=== PATIENT | female | born 2000 | race Caucasian/White ===

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

== ENCOUNTER 2019-04-25 12:19 | Outpatient (CLI) | payer BC, MEDICAID, SELFPAY ==
[2019-04-25 12:41] VITALS: BP 115/54; PULSE 75; RESP 20; TEMP 36.7; O2SAT 100; BMI 35.4
[2019-04-25 12:45] LABS: Microscopic, Urine URINE MICROSCOPIC (MICROSCOPIC)
[2019-04-25 12:51] LABS: Appearance,Urine CLEAR (Clear); Bilirubin,Urine Negative (Negative); Blood, Urine Negative (Negative); Color,Urine YELLOW (Yellow); Glucose,Urine (UA) Negative (Negative); Ketones,Urine Negative (Negative); Leukocyte Esterase,Urine Negative (Negative); Nitrate,Urine Negative (Negative); PH,Urine 7.5 (5.0-8.5); Protein,Urine Negative (Negative); Specific Gravity, Urine <= 1.005 (1.005-1.030); Urobilinogen,Urine 0.2 EU/dl (0.2)
[2019-04-25 13:01] LABS: Amphetamine/Metha Screen,Urine Negative ng/mL (<1000); Barbiturates Screen,Urine Negative ng/mL (<200); Benzodiazepines Screen,Urine Negative ng/mL (<200); Cannabinoid Screen,Urine Negative ng/mL (<50); Cocaine Screen,Urine Negative ng/mL (<300); Methadone Screen,Urine Negative ng/mL (<300); Opiate Screen,Urine Negative ng/mL (<300); Phencyclidine Screen,Urine Negative ng/mL (<25)
[2019-04-25 13:03] LABS: Fetal Membrane Rupture (Rapid) Negative (Negative)
[2019-04-25 13:07] LABS: Bacteria,Urine 2+ /lpf
== END 2019-04-25 13:40 | disposition home or self-care (01) ==
LOC: OBOUT 12:22 → OB 12:24
PROVIDERS: PCP Nurse Practitioner Family; Visit Provider Obstetrics & Gynecology
DX: O26.893 Other specified pregnancy related conditions, third trimester (principal); Z3A.34 34 weeks gestation of pregnancy
CPT/HCPCS: 59025; 80305; 81001; 84112; 87086

== ENCOUNTER → 2019-06-08 10:40 | Outpatient (CLI) | payer BC, MEDICAID, SELFPAY ==
--- NOTE | 2019-06-08 10:47 | US_ITS ---
US breast LT complete INDICATION: Left breast mass. Recent childbirth with attempted breast-feeding with nodule appearing 1 week after cessation of breast-feeding. ORDERING PHYSICIAN: Leonora Wade APRN PATIENT AGE: 19 years COMPARISON: None TECHNIQUE: Ultrasound left breast performed along with axilla FINDINGS: There is a 5 x 2 cm area of heterogeneous echogenicity at the 3 and 4:00 region of the left breast have a somewhat bilobular appearance with both cystic and solid appearing components. No internal blood flow apparent In all likelihood with this clinical presentation, this likely represents a galactocele.. The remaining breast is an unremarkable appearance. There is a mildly prominent node in the left axilla at 2 x 1.5 cm. IMPRESSION: 5 x 2 cm complex mass at the 3 and 4:00 position of the left breast near the nipple which may represent a coaxial. One cannot exclude the possibility of superimposed infection. The differential diagnosis would include lactating adenoma, breast abscess, fibroadenoma or even carcinoma. Fine-needle aspiration could be performed under sonographic guidance for definitive diagnosis if clinically desired.
== END ==
PROVIDERS: PCP Nurse Practitioner Family; Visit Provider Nurse Practitioner Family
DX: N63.20 Unspecified lump in the left breast, unspecified quadrant (principal)
CPT/HCPCS: 76641

== ENCOUNTER → 2019-07-06 09:23 | Outpatient (CLI) | payer BC, MEDICAID, SELFPAY ==
--- NOTE | 2019-07-06 09:28 | US_ITS ---
PROCEDURE: US FNA BREAST CLINICAL INDICATION: LT BREAST MASS COMPARISON: BREASTLT US breast LT complete from 06/08/2019 FINDINGS: Technique: Following obtaining informed consent under aseptic conditions and local anesthesia with 1 percent buffered lidocaine, 2 passes were made into the area of heterogeneous echogenicity within the 2 o'clock region of the left breast and fine-needle aspiration obtained. The patient tolerated the procedure well without evidence of immediate complication. Cytology: Negative for malignant cells. Scant ductal groups with marked acute inflammation and mini histiocytes, favor inflammatory process suspicious for mastitis which correlates with the sonographic and clinical findings. IMPRESSION: Ultrasound-guided fine needle aspiration of left breast negative for malignancy suspicious for mastitis. Recommend 6-8 week sonographic follow-up to confirm resolution of the sonographic abnormality Dictated by: Eduin Austin MD 07/16/2019 15:03 Electronically signed by Eduin Austin MD in [place] 07/16/2019 15:03
== END ==
PROVIDERS: PCP Nurse Practitioner Family; Visit Provider Nurse Practitioner Family
DX: N63.22 Unspecified lump in the left breast, upper inner quadrant
CPT/HCPCS: 10005; 76942; 87070; 87205

== ENCOUNTER 2020-04-03 13:43 | Emergency (ER) | payer BC, SELFPAY ==
[2020-04-03 13:44] VITALS: PULSE 100; RESP 18; O2SAT 100; BMI 30.5
[2020-04-03 13:51] VITALS: BP 124/70; PULSE 103; RESP 18; TEMP 36.6; O2SAT 95; BMI 30.5
--- NOTE | 2020-04-03 14:32 | HMH.EDUTC ---
[facility] [place] Impression: Nausea Diarrhea Qualifiers: Diarrhea type: unspecified type Qualified Code(s): R19.7 - Diarrhea, unspecified Disposition: Home, Self-Care Condition on Discharge: Good Instructions: Diarrhea, DI for Nausea -- Adult Additional Instructions: ? Drink extra fluids with and between meals. If you have difficulty drinking, try very small amounts of water or suck on ice chips. ? Avoid fruit juices, as these do not replace minerals and can actually increase diarrhea. ? Children and adults can use sports drinks to replenish electrolytes. Younger children and infants should use products formulated for children, like oral rehydration solutions. ? Eat food in small amounts and let your stomach recover. ? Get lots of rest. You may feel tired or weak. ? No greasy or fried foods for the next 24-48 hours BRAT diet Bananas Rice Apples and [place] ? Make sure to drink plenty of liquids ? Return if needed ? Straight to ER if any life threatening symptoms ? Zofran as prescribed ? You was given an outpatient order for diarrhea panel, please collect specimen and bring back to outpatient lab then call back to the [facility] or follow up with family doctor for results ? Follow up with family doctor in the next 48-72 hours if no improvement or any worsening of symptoms Prescriptions: Ondansetron [Zofran 4mg ODT] 4 mg PO Q8HP PRN #9 tab.rapdis PRN Reason: Nausea Transmission Status: Pending to [facility] Referrals: Leonora Wade APRN [Primary Care Provider] - As needed Forms: Work/School Release Time of Disposition: 14:37 Medical Decision Making - Delmer Inquiry Pt receiving controlled substance: No Delmer was queried for this patient: No Vital Signs: 04/03/20 13:44 04/03/20 13:51 Temperature 97.8 F Temperature Source Oral Pulse Rate [Radial] 100 H 103 H Respiratory Rate 18 18 Blood Pressure [Right Arm] 124/70 Blood Pressure Mean [Right Arm] 88 Blood Pressure Source [Right Arm] Automatic Cuff Blood Pressure Position [Right Arm] Sitting 02 Sat by Pulse Oximetry 100 95 Oxygen Delivery Method Room Air - Reevaluation(s) Time: 14:34 Reevaluation #1: Patient states last day of menstruation was yesterday denies , no vomiting or diarrhea since arrival at [facility] HPI - General Stated complaint: diarrhea, cramping Time Seen by Provider: 04/03/20 14:32 Mode of Arrival: Ambulatory Source of Information: Patient Limitations: No Limitations Description of Symptoms (Recalled from Triage Doc. by RN): States she feels hot, not eating very much x 2 days - History of Present Illness Provider Complaint: Patient states that she has been having nausea on and off and diarrhea for the last couple of days States that she just got off her period and denies States that when she got up this morning she was still having some nausea and diarrhea and could not go to work so she came in to get checked and get a note for work - Related Data Previous Rx's Medication Instructions Recorded Albuterol Sulfate [Albuterol HFA 1 - 2 puffs IH Q4-6H PRN #1 inh 01/15/20 Inhaler] Azithromycin [Z-Mario 250mg Tab*] 250 mg PO UD DOSE PK #6 tab 01/15/20 Brompheniramine/Pseudoephed/Dm 5 ml PO Q6HP PRN #240 syrup 01/15/20 [Bromfed Dm Cough Syrup] guaiFENesin [Mucinex 600mg tablet] 1 - 2 tab PO BIDP PRN #30 01/15/20 tab.er.12h methylPREDNISolone [Medrol] 4 mg PO DIRECTED 6 Days #21 01/15/20 tab.ds.pk Ondansetron [Zofran 4mg ODT] 4 mg PO Q8HP PRN #9 tab.rapdis 04/03/20 Allergies Allergy/AdvReac Type Severity Reaction Status Date / Time BLUEBERRY (DRUG) Allergy Unknown Uncoded 07/22/19 10:59 CAT DANDER Allergy Unknown Uncoded 07/22/19 10:59 DOG DANDER Allergy Unknown Uncoded 07/22/19 10:59 DUST Allergy Unknown Uncoded 07/22/19 10:59 CODFISH AdvReac Unknown FACE RED, Uncoded 07/22/19 10:59 PUFFY, RASH - Worker's Comp Is this a Worker's Comp case?:
[2020-04-03 14:41] VITALS: BP 120/87; PULSE 104; RESP 20; TEMP 36.8; O2SAT 98
== END 2020-04-03 14:42 | disposition home or self-care (01) ==
LOC: ER 13:51 → UTC 13:52
PROVIDERS: Emergency Provider Nurse Practitioner; PCP Nurse Practitioner Family
DX: R19.7 Diarrhea, unspecified (principal); J45.909 Unspecified asthma, uncomplicated; F17.210 Nicotine dependence, cigarettes, uncomplicated
CPT/HCPCS: 99201

== ENCOUNTER 2020-07-10 17:12 | Emergency (ER) | payer BC, SELFPAY ==
[2020-07-10 17:36] VITALS: BP 144/92; PULSE 70; RESP 19; TEMP 36.6; O2SAT 98; BMI 31.0
--- NOTE | 2020-07-10 17:53 | HMH.EDUTC ---
[facility] [place] Dis[place] Clinical Impression: Nausea Diarrhea Qualifiers: Diarrhea type: unspecified type Qualified Code(s): R19.7 - Diarrhea, unspecified Disposition: Home, Self-Care Condition on Discharge: Good Instructions: DI for Vomiting -- Adult, Nausea and Vomiting-Adult, Diarrhea Additional Instructions: ? Drink extra fluids with and between meals. If you have difficulty drinking, try very small amounts of water or suck on ice chips. ? Avoid fruit juices, as these do not replace minerals and can actually increase diarrhea. ? Children and adults can use sports drinks to replenish electrolytes. Younger children and infants should use products formulated for children, like oral rehydration solutions. ? Eat food in small amounts and let your stomach recover. ? Get lots of rest. You may feel tired or weak. ? No greasy or fried foods for the next 24-48 hours BRAT diet Bananas Rice Apples and [place] ? Make sure to drink plenty of liquids ? Return if needed ? Straight to ER if any life threatening symptoms ? Zofran as prescribed ? You was given an outpatient order for diarrhea panel, please collect specimen and bring back to outpatient lab then call back to the [facility] or follow up with family doctor for results ? Follow up with family doctor in the next 48-72 hours if no improvement or any worsening of symptoms Prescriptions: Ondansetron [Zofran 4mg ODT] 4 mg PO Q8HP PRN #6 tab.rapdis PRN Reason: Nausea Transmission Status: Pending to [facility] Referrals: Leonora Wade APRN [Primary Care Provider] - As needed Forms: Work/School Release Medical Decision Making - Delmer Inquiry Pt receiving controlled substance: No Delmer was queried for this patient: No Vital Signs: 07/10/20 17:36 Temperature 97.9 F Temperature Source Oral Pulse Rate [Right Brachial] 70 Respiratory Rate 19 Blood Pressure [Right Arm] 144/92 H Blood Pressure Mean [Right Arm] 109 Blood Pressure Source [Right Arm] Automatic Cuff Blood Pressure Position [Right Arm] Sitting 02 Sat by Pulse Oximetry 98 Oxygen Delivery Method Room Air Medical Decision Narrative: Patient denies and exposure to COVID [facility] [place] HPI - General Stated complaint: stomach,nausa,diarrhea Time Seen by Provider: 07/10/20 17:53 Mode of Arrival: Ambulatory Source of Information: Patient Limitations: No Limitations Description of Symptoms (Recalled from Triage Doc. by RN): PATIENT C/O NAUSEA AND DIARRHEA SINCE THIS MORNING HEENT Symptoms (Recalled from RN notes): No Resp Symptoms (Recalled from RN notes): No Skin Symptoms (Recalled from RN notes): No MS Symptoms (Recalled from RN notes): No Functional Status (Recalled from RN notes): WNL - History of Present Illness Provider Complaint: Patient states that she woke up this morning sick at her stomach States that she laid back down and slept some more then she started having diarrhea States that she has had a couple eppisodes of diarrhea today and nausea but no vomiting States that she wasnt able to go to work and came in to get checked - Related Data Previous Rx's Medication Instructions Recorded Ondansetron [Zofran 4mg ODT] 4 mg PO Q8HP PRN #6 tab.rapdis 07/10/20 Allergies Allergy/AdvReac Type Severity Reaction Status Date / Time BLUEBERRY (DRUG) Allergy Unknown Uncoded 07/22/19 10:59 CAT DANDER Allergy Unknown Uncoded 07/22/19 10:59 DOG DANDER Allergy Unknown Uncoded 07/22/19 10:59 DUST Allergy Unknown Uncoded 07/22/19 10:59 CODFISH AdvReac Unknown FACE RED, Uncoded 07/22/19 10:59 PUFFY, RASH - Worker's Comp Is this a Worker's Comp case?: No [facility] History - Hepatitis A Screen Drug use history?: No High risk sexual behaviors?: No History of sexually transmitted infection?: No Currently employed?: No Childcare worker?: No Do you have indoor plumbing?: Yes Do you have electricity?: Yes Attestation statement:: This patient has been screened for Hepatitis A risk
[2020-07-10 18:05] VITALS: BP 144/92; PULSE 70; RESP 19; TEMP 36.6; O2SAT 98
== END 2020-07-10 18:07 | disposition home or self-care (01) ==
PROVIDERS: Emergency Provider Nurse Practitioner; PCP Nurse Practitioner Family
DX: R11.0 Nausea (principal); R19.7 Diarrhea, unspecified; J45.909 Unspecified asthma, uncomplicated; F17.210 Nicotine dependence, cigarettes, uncomplicated
CPT/HCPCS: 99201

== ENCOUNTER 2020-09-26 12:05 | Emergency (ER) | payer BC, SELFPAY ==
[2020-09-26 12:26] VITALS: BP 118/70; PULSE 117; RESP 20; TEMP 36.7; O2SAT 97; BMI 32.8
--- NOTE | 2020-09-26 12:45 | HMH.EDUTC ---
[facility] [place] Clinical Impression: Exposure to COVID-19 virus, Viral syndrome Disposition: Home, Self-Care Condition on Discharge: Good Instructions: DI for Viral Syndrome Additional Instructions: Drink plenty of fluids. Take tylenol for pain or fever. Return if you begin to have difficulty breathing. Follow up with your regular doctor. GO TO THE ER FOR ANY WORSENING SYMPTOMS Prescriptions: Azithromycin [Z-Mario 250mg Tab*] 250 mg PO UD DOSE PK #6 tab Transmission Status: Received by [facility] Referrals: Leonora Wade APRN [Primary Care Provider] - Forms: Work/School Release Time of Disposition: 12:49 Medical Decision Making - Medical Records Medical records reviewed: No: I reviewed the patient's medical records. - Delmer Inquiry Pt receiving controlled substance: No Vital Signs: 09/26/20 12:26 09/26/20 13:03 Temperature 98.1 F 98.1 F Temperature Source Oral Oral Pulse Rate 117 H Pulse Rate [Radial] 117 H Respiratory Rate 20 20 Blood Pressure 118/70 Blood Pressure [Right Arm] 118/70 Blood Pressure Mean [Right Arm] 86 Blood Pressure Source Automatic Cuff Blood Pressure Source [Right Arm] Automatic Cuff Blood Pressure Position Sitting Blood Pressure Position [Right Arm] Sitting 02 Sat by Pulse Oximetry 97 Oxygen Delivery Method Room Air Room Air Orders (Tests/Meds): ORDERS Category Date Time Status Covid-19 Nasal PCR ([facility]) Routine Lab 09/26/20 12:15 Received [facility] [place]PI - General Stated complaint: covid test Time Seen by Provider: 09/26/20 12:45 Mode of Arrival: Ambulatory Source of Information: Patient Limitations: No Limitations Description of Symptoms (Recalled from Triage Doc. by RN): sore throat, nasal congestion wants covid test. HEENT Symptoms (Recalled from RN notes): Yes Resp Symptoms (Recalled from RN notes): No Skin Symptoms (Recalled from RN notes): No MS Symptoms (Recalled from RN notes): No Functional Status (Recalled from RN notes): wnl - History of Present Illness Provider Complaint: She c/o 2 days of feeling bad, low grade fever, nasal congestion. She has been exposed to covid at her workplace. - Related Data Home Medications Medication Instructions Recorded Confirmed acyclovir 400 mg tablet 400 mg PO DAILY 08/25/20 08/25/20 Previous Rx's Medication Instructions Recorded miconazole nitrate 2 % topical 1 applic TOPICAL BID 14 Days #30 g 08/25/20 cream Azithromycin [Z-Mario 250mg Tab*] 250 mg PO UD DOSE PK #6 tab 09/26/20 Allergies Allergy/AdvReac Type Severity Reaction Status Date / Time blueberry Allergy Verified 08/25/20 13:46 cat dander Allergy Verified 08/25/20 13:46 dog dander Allergy Verified 08/25/20 13:46 house dust Allergy Verified 08/25/20 13:46 codfish Allergy Uncoded 08/25/20 13:46 - Worker's Comp Is this a Worker's Comp case?: No [facility] History - Hepatitis A Screen Drug use history?: No High risk sexual behaviors?: No History of sexually transmitted infection?: No Currently employed?: No Childcare worker?: No Do you have indoor plumbing?: Yes Do you have electricity?: Yes Attestation statement:: This patient has been screened for Hepatitis A risk factors. I have reviewed the patient's past medical history: Yes Medical History: Reports:: Asthma Denies:: Diabetes Mellitus Type 1, Diabetes Mellitus Type 2 Other Medical History: Reports: Other Other Surgeries: Yes: No Previous Surgery. No: Amputation: No Fractures: No Comment: 2018-wisdom teeth removed - Social History Smoking Status: Current every day smoker Tobacco Type: e-cigarettes # Packs/Day (cigarettes): 0 Alcohol Intake: never Alcohol Intake Frequency:: a few times a week Substance Use Type: marijuana, crack/cocaine, hallucinogens Occupational Status: other Housing: house Family Hx:: Hypertension, Asthma ROS Obtained: Yes All systems reviewed & no additional complaints - [place]
[2020-09-26 13:03] VITALS: BP 118/70; PULSE 117; RESP 20; TEMP 36.7; O2SAT 97
== END 2020-09-26 13:04 | disposition home or self-care (01) ==
PROVIDERS: Emergency Provider Nurse Practitioner Family; PCP Nurse Practitioner Family
DX: B34.9 Viral infection, unspecified (principal); Z20.828 Contact with and (suspected) exposure to other viral communicable diseases
CPT/HCPCS: 99201; U0003

== ENCOUNTER 2020-11-20 14:12 | Emergency (ER) | payer BC, SELFPAY ==
[2020-11-20 14:21] VITALS: BP 110/64; PULSE 100; RESP 18; TEMP 36.7; O2SAT 95; BMI 34.3
[2020-11-20 16:15] VITALS: BP 178/105; PULSE 129; RESP 28; TEMP 36.6; O2SAT 98; BMI 33.6
[2020-11-20 16:17] VITALS: BP 168/100; PULSE 120; RESP 22; TEMP 36.6; O2SAT 96; BMI 29.9
--- NOTE | 2020-11-20 16:17 | XR_ITS ---
PROCEDURE: XR CHEST PORTABLE CLINICAL HISTORY: wheezing, shortness of air COMPARISON: CR CXR CHEST(2 VIEWS-NOT PORTABLE) from 08/29/2009 CR CXR CHEST(2 VIEWS-NOT PORTABLE) from 11/09/2014 CR [id number] XR chest portable from 07/12/2018 FINDINGS: The cardiomediastinal silhouette and pulmonary vascularity are within normal limits. The lungs are clear without infiltrates, suspicious nodules, or pleural effusions. No acute bony abnormalities. IMPRESSION: No acute findings. Dictated by: Eduin Austin MD 11/20/2020 17:21 Eduin Austin MD in [place] 11/20/2020 17:21
--- NOTE | 2020-11-20 16:29 | HMH.EDGENADL ---
ED Disposition Clinical Impression: Asthma exacerbation Qualifiers: Asthma severity: moderate Disposition: Home, Self-Care Condition on Discharge: Good Additional Instructions: Return to the emergency department for worsening difficulty breathing, fever vomiting inability to tolerate by mouth or any other concerns within 8 hours. Otherwise follow-up with your primary care physician within the next few days Referrals: Leonora Wade APRN [Primary Care Provider] - - Critical Care Critical Care Time: No Attestation: On 11/20/20, the high probability of a clinically significant, sudden or life threatening deterioration of the following system(s) required my full and direct attention, intervention and personal management. The time I documented below is in addition to time spent performing reported procedures but includes the following listed in this critical care notation. Medical Decision Making - Medical Records Medical records reviewed: Yes: I reviewed the patient's medical records. - Delmer Inquiry Pt receiving controlled substance: No Vital Signs: 11/20/20 14:21 11/20/20 16:15 11/20/20 16:17 Temperature 98.0 F 97.9 F 98 F Temperature Source Oral Oral Oral Pulse Rate [Right] 100 H 129 H 120 H Respiratory Rate 18 28 H 22 Blood Pressure [Right Arm] 110/64 178/105 H 168/100 H Blood Pressure Mean [Right Arm] 79 129 122 Blood Pressure Source [Right Arm] Automatic Cuff Automatic Cuff Automatic Cuff Blood Pressure Position [Right Arm] Sitting Sitting Sitting 02 Sat by Pulse Oximetry 95 98 96 Oxygen Delivery Method Room Air Room Air Room Air 11/20/20 17:03 Temperature Temperature Source Pulse Rate [Right] 102 H Respiratory Rate Blood Pressure [Right Arm] 113/55 L Blood Pressure Mean [Right Arm] 74 Blood Pressure Source [Right Arm] Automatic Cuff Blood Pressure Position [Right Arm] Sitting 02 Sat by Pulse Oximetry 98 Oxygen Delivery Method Room Air - Lab Data Lab Results 11/20/20 16:14: WBC 10.1, RBC 5.16, Hgb 15.5, Hct 47.5 H, MCV 92.0, MCH 30.0, MCHC 32.6, RDW 13.8, Plt Count 268, MPV 9.2, Neut % (Auto) 55.5, Lymph % (Auto) 30.9, [place] % (Auto) 4.2, Eos % (Auto) 8.5, Baso % (Auto) 0.9, Neut # (Auto) 5.6, Lymph # (Auto) 3.1, [place] # (Auto) 0.4, Eos # (Auto) 0.9 H, Baso # (Auto) 0.1 11/20/20 16:14: Sodium 139, Potassium 4.1, Chloride 102, Carbon Dioxide 27, Anion Gap 14.1, BUN 8, Creatinine 0.60, Estimated Creat Clear 190, Estimated GFR 125, Est GFR ( Amer) 151, Glucose 108 H, Calcium 10.2, Total Bilirubin 0.4, AST 50 H, ALT 23, Alkaline Phosphatase 73, Total Protein 8.9 H, Albumin 4.8, Globulin 4.1 H, Albumin/Globulin Ratio 1.2 11/20/20 16:14: Serum HCG, Qual Negative 11/20/20 16:14: Magnesium 1.7 11/20/20 16:41: VBG pH 7.29 L, VBG pCO2 47.6, VBG pO2 51.5 H, VBG HCO3 22.4 L, VBG Total CO2 23.9, VBG O2 Saturation 85.5 H, VBG Base Excess -4.1 L Result diagrams: 11/20/20 16:14 11/20/20 16:14 Orders (Tests/Meds): ED MEDICATIONS Generic Name Dose Route Start Last Admin Trade Name Freq PRN Reason Stop Dose Admin Albuterol Sulfate 2 puffs 11/20/20 16:17 11/20/20 16:47 Albuterol-Hfa 90mcg/Puff Inhaler 8gm IH 12/20/20 16:16 2 puffs Q4HP PRN Administration Shortness Of Breath Benzonatate 100 mg 11/20/20 16:45 11/20/20 17:04 Benzonatate 100mg Capsule PO 12/20/20 16:44 100 mg ONCE MAGDY Administration Discontinued Medications Generic Name Dose Route Start Last Admin Trade Name Freq PRN Reason Stop Dose Admin Dexamethasone Sodium Phosphate 10 mg 11/20/20 16:17 11/20/20 16:33 Dexamethasone 4mg/Ml 1ml Vial IV 11/20/20 16:18 10 mg ONCE ONE Administration Sodium Chloride 1,000 mls @ 999 mls/hr 11/20/20 16:30 11/20/20 16:34 Sod Chlor 0.9% 1000ml Bag IV 11/20/20 17:30 999 mls/hr .Q1H1M MAGDY Administration Miscellaneous 1 unit 11/20/20 16:17 11/20/20 16:48 Aerochamber/Optihaler MC 11/20/20 16:18 1 unit ONCE ONE Administration ORDERS
--- NOTE | 2020-11-20 16:34 | PC.NURSE ---
radiology at bedside
[2020-11-20 16:43] LABS: Basophils # 0.1 K/mm3 (0-0.2); Basophils % 0.9 % (0.1-2.0); Eosinophils # 0.9 K/mm3 (0.0-0.4); Eosinophils % 8.5 % (0.1-12.0); Hematocrit 47.5 % (37.0-47.0); Hemoglobin 15.5 g/dL (12.2-16.2); Lymphocytes # 3.1 K/mm3 (0.7-4.5); Lymphocytes % 30.9 % (10-50); Mean Corpuscular HGB Conc 32.6 g/dL (31.8-35.4); Mean Platelet Volume 9.2 fl (7.4-10.4); Monocytes # 0.4 K/mm3 (0.1-1.0); Monocytes % 4.2 % (1.7-9.3); Neutrophils # 5.6 K/mm3 (1.8-7.8); Neutrophils % 55.5 % (37.0-80.0); Platelet Count 268 K/mm3 (142-424); Red Blood Count 5.16 M/mm3 (4.20-5.40); Red Cell Distribution Width 13.8 % (11.5-17.5); White Blood Count 10.1 K/mm3 (4.8-10.8)
[2020-11-20 16:45] LABS: Alanine Aminotransferase 23 U/L (12-78); Albumin Level 4.8 g/dl (3.5-5.0); Albumin/Globulin Ratio 1.2 (1.1-1.8); Alkaline Phosphatase 73 U/L (38-126); Anion Gap 14.1 mEq/L (5-15); Aspartate Amino Transferase 50 U/L (14-36); Bilirubin,Total 0.4 mg/dl (0.2-1.3); Blood Urea Nitrogen 8 mg/dl (7-17); Calcium 10.2 mg/dl (8.4-10.2); Carbon Dioxide 27 mmol/L (22.0-30.0); Chloride 102 mmol/L (98-107); Creatinine Clearance Estimated 190 mL/min (50-200); Estimated Glomerular Filt Rate 125 ml/min (>60); GFR (African American) 151 ML/MIN (>60); Globulin 4.1 g/dL (1.3-3.2); Glucose 108 mg/dl (74-100); Potassium 4.1 mmoL/L (3.5-5.1); Sodium 139 mmol/L (136-145); Total Protein,Serum 8.9 g/dl (6.3-8.2)
[2020-11-20 16:46] LABS: HCG Qualitative, Serum Negative (Negative)
[2020-11-20 16:54] LABS: Magnesium 1.7 mg/dl (1.6-2.3)
[2020-11-20 17:03] VITALS: BP 113/55; PULSE 102; O2SAT 98
[2020-11-20 17:39] LABS: VBG Base Excess -4.1 mmol/L (-2.4-2.3); VBG HCO3 22.4 mmol/L (23-30); VBG Oxygen Saturation 85.5 % (50-70); VBG PCO2 47.6 mmol/L (35-51); VBG PH 7.29 mmol/L (7.31-7.41); VBG PO2 51.5 mmol/L (28-40); VBG Total CO2 23.9 mmol/L (23-27)
[2020-11-20 17:55] VITALS: BP 158/88; PULSE 102; RESP 17; TEMP 36.9; O2SAT 96
--- NOTE | 2020-11-21 10:18 | PC.NURSE ---
notified COVID + result
== END 2020-11-20 18:03 | disposition home or self-care (01) ==
LOC: ER 14:22 → UTC 14:29 → ER 16:03
PROVIDERS: Emergency Provider Emergency Medicine; PCP Nurse Practitioner Family
DX: U07.1 COVID-19 (principal); J45.901 Unspecified asthma with (acute) exacerbation; F17.290 Nicotine dependence, other tobacco product, uncomplicated
CPT/HCPCS: 71045; 80053; 82803; 83735; 84703; 85025; 96365; 96375; 99283; U0003

== ENCOUNTER 2021-01-07 17:46 | Emergency (ER) | payer BC, SELFPAY ==
[2021-01-07 18:00] VITALS: BP 150/93; PULSE 117; RESP 14; TEMP 37.2; O2SAT 97; BMI 33.6
--- NOTE | 2021-01-07 18:06 | XR_ITS ---
PROCEDURE: XR FOOT LT MIN 3V CLINICAL INDICATION: INJURY FROM FALL Posttraumatic pain COMPARISON: No exams were available for comparison FINDINGS: No fracture or dislocation. No lytic or blastic change. There is normal mineralization. The joint spaces are well-preserved. No significant degenerative/arthritic changes. No erosive changes evident. Other findings:None. IMPRESSION: No acute findings. Dictated by: Eduin Austin MD 01/08/2021 05:59 Eduin Austin MD in [place] 01/08/2021 05:59
--- NOTE | 2021-01-07 18:39 | HMH.EDUTC ---
[facility] [place] Clinical Impression: Sprain of left foot Qualifiers: Encounter type: initial encounter Qualified Code(s): S93.602A - Unspecified sprain of left foot, initial encounter Disposition: Home, Self-Care Condition on Discharge: Good Instructions: DI for Foot Sprain Additional Instructions: Rest the extremity, apply ice for 15 minutes as tolerated three or four times per day, Wear the la wrap for compression, Elevate the extremity as tolerated while you are resting. Take ibuprofen for pain. I sent in a prescription to your pharmacy. Follow up with Dr. Arango (podiatry). Sometimes there can be fractures that don't show up well on the first set of x-rays. So, you should follow up if you continue to have symptoms. I put in a referral but you need to call her office and schedule an appointment. Follow up with your regular doctor. GO TO THE ER FOR ANY WORSENING SYMPTOMS Prescriptions: Ibuprofen [Ibuprofen 600mg Tablet] 600 mg PO Q6HP PRN #30 tab PRN Reason: Mild Pain Transmission Status: Received by [id number] Referrals: Leonora Wade APRN [Primary Care Provider] - Dalia Arango DPM [Staff Physician] - Forms: Work/School Release Time of Disposition: 18:40 Medical Decision Making - Medical Records Medical records reviewed: No: I reviewed the patient's medical records. - [place] Inquiry Pt receiving controlled substance: No Vital Signs: 01/07/21 18:00 01/07/21 18:44 Temperature 98.9 F 98.9 F Temperature Source Oral Pulse Rate 117 H Pulse Rate [Right Brachial] 117 H Respiratory Rate 14 14 Blood Pressure 150/93 H Blood Pressure [Right Arm] 150/93 H Blood Pressure Mean [Right Arm] 112 Blood Pressure Source [Right Arm] Automatic Cuff Blood Pressure Position [Right Arm] Sitting 02 Sat by Pulse Oximetry 97 Oxygen Delivery Method Room Air Orders (Tests/Meds): ORDERS Category Date Time Status XR foot LT min 3V Stat Exams 01/07/21 18:06 Taken - Radiology Data #1 Image(s): Ankle, Foot/Toes Image Reviewed: Yes I reviewed the patient's radiology image, Yes I have reviewed radiologist's interpretation Preliminary Findings: No Fracture Seen [facility] [place]PI - General Stated complaint: Hurt left foot/slipped on floor Time Seen by Provider: 01/07/21 18:00 Mode of Arrival: Ambulatory Source of Information: Patient Limitations: No Limitations Description of Symptoms (Recalled from Triage Doc. by RN): PATIENT C/O INJURY TO LEFT FOOT AFTER SLIPPING AND FALLING LAST NIGHT. ALSO C/O BLEEDING FROM RECTUM; HX OF HEMORRHOIDS HEENT Symptoms (Recalled from RN notes): No Resp Symptoms (Recalled from RN notes): No Skin Symptoms (Recalled from RN notes): No MS Symptoms (Recalled from RN notes): Yes Functional Status (Recalled from RN notes): WNL - History of Present Illness Provider Complaint: She states that she fell last night and twisted her left foot. Since then she has had left foot pain. The pain is worse when she is bearing weight or walking on the foot. - Related Data Home Medications Medication Instructions Recorded Confirmed norethindrone-e.estradioL-iron 1 tab PO DAILY 11/20/20 11/20/20 [Ngrdth-Bcyqar-Ti 1-0.02(11)-97] Previous Rx's Medication Instructions Recorded valacyclovir 500 mg tablet 500 mg PO BID 7 Days #14 tab 12/28/20 valacyclovir 500 mg tablet 500 mg PO DAILY #30 tab 12/28/20 Ibuprofen [Ibuprofen 600mg 600 mg PO Q6HP PRN #30 tab 01/07/21 Tablet] Allergies Allergy/AdvReac Type Severity Reaction Status Date / Time blueberry Allergy Verified 11/20/20 16:41 cat dander Allergy Verified 11/20/20 16:41 dog dander Allergy Verified 11/20/20 16:41 house dust Allergy Verified 11/20/20 16:41 codfish Allergy Uncoded 10/16/20 11:23 - Worker's Comp Is this a Worker's Comp case?: No [facility] History - Hepatitis A Screen Drug use history?: No High risk sexual behaviors?: No History of sexually transmitted infection?:
[2021-01-07 18:44] VITALS: BP 150/93; PULSE 117; RESP 14; TEMP 37.2; O2SAT 97
== END 2021-01-07 18:52 | disposition home or self-care (01) ==
PROVIDERS: Emergency Provider Nurse Practitioner Family; PCP Nurse Practitioner Family
DX: S93.602A Unspecified sprain of left foot, initial encounter (principal); X50.1XXA Overexertion from prolonged static or awkward postures, initial encounter; Y92.89 Other specified places as the place of occurrence of the external cause; J45.909 Unspecified asthma, uncomplicated; F17.290 Nicotine dependence, other tobacco product, uncomplicated
CPT/HCPCS: 73630; 99202; G0463

== ENCOUNTER 2021-01-23 15:48 | Emergency (ER) | payer BC, SELFPAY ==
[2021-01-23 16:00] VITALS: BP 110/71; PULSE 119; RESP 20; TEMP 36.9; O2SAT 98; BMI 34.4
--- NOTE | 2021-01-23 16:23 | HMH.EDUTC ---
[facility] [place] Disposition Clinical Impression: Nausea vomiting and diarrhea Disposition: Home, Self-Care Condition on Discharge: Good Instructions: Nausea and Vomiting-Adult, Diarrhea Additional Instructions: ? Avoid fruit juices, as these do not replace minerals and can actually increase diarrhea. ? Children and adults can use sports drinks to replenish electrolytes. Younger children and infants should use products formulated for children, like oral rehydration solutions. ? Eat food in small amounts and let your stomach recover. ? Get lots of rest. You may feel tired or weak. ? No greasy or fried foods for the next 24-48 hours BRAT diet Bananas Rice Apples and [place] ? Make sure to drink plenty of liquids ? Return if needed ? Straight to ER if any life threatening symptoms ? Zofran as prescribed ? You was given an outpatient order for diarrhea panel, please collect specimen and bring back to outpatient lab then call back to the [facility] or follow up with family doctor for results ? Follow up with family doctor in the next 48-72 hours if no improvement or any worsening of symptoms You were tested for today for COVID19 your test result should be back in the next 24-48 hours, you may call to the [facility] to see if your test results are back in the next 48 hours [phone] [facility] hours are 9am-9pm You was given a handout with instructions for Self Quarantine and Self isolation for while you wait on test results and what to do if they are positive If you are positive the Health Dept will be contacting you also Prescriptions: Ondansetron [Zofran 4mg ODT] 4 mg PO TIDP PRN #9 tab PRN Reason: Nausea Transmission Status: Pending to [id number] Referrals: Leonora Wade APRN [Primary Care Provider] - As needed Time of Disposition: 16:32 Medical Decision Making - Delmer Inquiry Pt receiving controlled substance: No Delmer was queried for this patient: No Vital Signs: 01/23/21 16:00 Temperature 98.5 F Temperature Source Oral Pulse Rate [Left Brachial] 119 H Respiratory Rate 20 Blood Pressure [Left Arm] 110/71 Blood Pressure Mean [Left Arm] 84 Blood Pressure Source [Left Arm] Automatic Cuff Blood Pressure Position [Left Arm] Sitting 02 Sat by Pulse Oximetry 98 Oxygen Delivery Method Room Air - Lab Data Lab results reviewed: Yes: I reviewed the patient's lab results. Lab Results 01/23/21 16:06: Influenza Type A Ag Negative, Influenza Type B Ag Negative Medical Decision Narrative: Patient denies chance of [facility] [place] HPI - General Stated complaint: cough, diarrhea, vomiting Time Seen by Provider: 01/23/21 16:23 Mode of Arrival: Ambulatory Source of Information: Patient Limitations: No Limitations Description of Symptoms (Recalled from Triage Doc. by RN): PATIENT C/O NAUSEA, VOMITING, DIARRHEA, HEADACHE, BODY ACHES, AND FATIGUE SINCE LAST NIGHT HEENT Symptoms (Recalled from RN notes): Yes Resp Symptoms (Recalled from RN notes): No Skin Symptoms (Recalled from RN notes): No MS Symptoms (Recalled from RN notes): No Functional Status (Recalled from RN notes): WNL - History of Present Illness Provider Complaint: Patient state that she not sure if she has stomach virus or flu States that she started feeling bad last night having body aches, chills, fatigue, nausea and vomiting States that today she was still feeling bad and having nausea so she came in to get checked - Related Data Home Medications Medication Instructions Recorded Confirmed norethindrone-e.estradioL-iron 1 tab PO DAILY 11/20/20 11/20/20 [[id number] 1-0.02(76)-02] Previous Rx's Medication Instructions Recorded valacyclovir 500 mg tablet 500 mg PO BID 7 Days #14 tab 12/28/20 Ibuprofen [Ibuprofen 600mg 600 mg PO Q6HP PRN #30 tab 01/07/21 Tablet] valacyclovir 500 mg tablet 500 mg PO DAILY #30 tab 01/09/21 Ondansetron [Zofran 4mg ODT] 4 mg PO TIDP PRN #9 tab 01/23/21 Allergies Allergy/AdvReac Type Severity Reactio
[2021-01-23 16:25] LABS: UTC Influenza A Antigen Negative (Negative); UTC Influenza B Antigen Negative (Negative)
[2021-01-23 16:34] VITALS: BP 110/71; PULSE 119; RESP 20; TEMP 36.9; O2SAT 98
== END 2021-01-23 16:37 | disposition home or self-care (01) ==
PROVIDERS: Emergency Provider Nurse Practitioner; PCP Nurse Practitioner Family
DX: Z20.822 Contact with and (suspected) exposure to COVID-19 (principal); R11.2 Nausea with vomiting, unspecified; R19.7 Diarrhea, unspecified; J45.909 Unspecified asthma, uncomplicated; F17.290 Nicotine dependence, other tobacco product, uncomplicated; F12.10 Cannabis abuse, uncomplicated
CPT/HCPCS: 87804; 99202; G0463; U0003

== ENCOUNTER 2021-03-29 18:04 | Emergency (ER) | payer BC, SELFPAY ==
[2021-03-29 18:10] VITALS: BP 141/82; PULSE 112; RESP 18; TEMP 37.5; O2SAT 98; BMI 34.7
[2021-03-29 18:29] LABS: UTC Pregnancy Test, Urine Negative (Negative)
--- NOTE | 2021-03-29 18:34 | HMH.EDUTC ---
[facility] [place], [place] Disposition Clinical Impression: Negative test Disposition: Home, Self-Care Condition on Discharge: Good Instructions: Home and Clinic Tests, In-Home Tests: Your Questions Answered Additional Instructions: If you have not had your menstrual cycle in the next couple of weeks you may want to have test repeated Follow up with your Family Doctor if needed Straight to ER if any life threatening symptoms Return if needed Referrals: Leonora Wade APRN [Primary Care Provider] - As needed Time of Disposition: 18:50 Medical Decision Making - Delmer Inquiry Pt receiving controlled substance: No Delmer was queried for this patient: No Vital Signs: 03/29/21 18:10 Temperature 99.5 F Temperature Source Temporal Artery Scan Pulse Rate [Right Brachial] 112 H Respiratory Rate 18 Blood Pressure [Right Arm] 141/82 H Blood Pressure Mean [Right Arm] 101 Blood Pressure Source [Right Arm] Automatic Cuff Blood Pressure Position [Right Arm] Sitting 02 Sat by Pulse Oximetry 98 Oxygen Delivery Method Room Air - Lab Data Lab results reviewed: Yes: I reviewed the patient's lab results. Lab Results 03/29/21 18:00: Serum HCG, Qual Negative 03/29/21 18:11: Tst Clinic Negative [facility] [place] [place] HPI - General Stated complaint: test Time Seen by Provider: 03/29/21 18:34 Mode of Arrival: Ambulatory Source of Information: Patient Limitations: No Limitations Description of Symptoms (Recalled from Triage Doc. by RN): PATIENT REQUESTING BLOOD TEST HEENT Symptoms (Recalled from RN notes): No Resp Symptoms (Recalled from RN notes): No Skin Symptoms (Recalled from RN notes): No MS Symptoms (Recalled from RN notes): No Functional Status (Recalled from RN notes): WNL - History of Present Illness Provider Complaint: Patient requesting blood test State that she has taken a couple test at home and one was positive and one was negative States that she was worried that she may be and wanted to get a blood test to see what it showed State that she is one day late on her period and has been feeling martino - Related Data Allergies Allergy/AdvReac Type Severity Reaction Status Date / Time blueberry Allergy Verified 11/20/20 16:41 cat dander Allergy Verified 11/20/20 16:41 dog dander Allergy Verified 11/20/20 16:41 house dust Allergy Verified 11/20/20 16:41 codfish Allergy Uncoded 10/16/20 11:23 - Worker's Comp Is this a Worker's Comp case?: No [facility] History - Hepatitis A Screen Drug use history?: No High risk sexual behaviors?: No History of sexually transmitted infection?: No Currently employed?: No Childcare worker?: No Do you have indoor plumbing?: Yes Do you have electricity?: Yes Attestation statement:: This patient has been screened for Hepatitis A risk factors. I have reviewed the patient's past medical history: Yes Medical History: Reports:: Asthma Denies:: Diabetes Mellitus Type 1, Diabetes Mellitus Type 2 Other Medical History: Reports: Other Other Surgeries: Yes: No Previous Surgery. No: Amputation: No Fractures: No Comment: 2018-wisdom teeth removed - Social History Smoking Status: Current every day smoker Tobacco Type: cigarettes # Packs/Day (cigarettes): 1 Alcohol Intake: current Alcohol Intake Frequency:: a few times a week Substance Use Type: marijuana, crack/cocaine, hallucinogens Occupational Status: other Housing: house Family Hx:: Hypertension, Asthma ROS Obtained: Yes All systems reviewed & no additional complaints, Yes Systems reviewed as appropriate & no additional complaints - Constitutional Constitutional: Reports system reviewed and no additional complaints, except as docu - ENT Ears, Nose, Mouth, and Throat: Reports system reviewed and no additional complaints, except as docu - Cardiovascular Cardiovascular: Reports system reviewed and no additional complaints, except as do
[2021-03-29 18:45] LABS: HCG Qualitative, Serum Negative (Negative)
[2021-03-29 18:50] VITALS: BP 141/81; PULSE 112; RESP 18; TEMP 37.5; O2SAT 98
== END 2021-03-29 18:53 | disposition home or self-care (01) ==
PROVIDERS: Emergency Provider Nurse Practitioner; PCP Nurse Practitioner Family
DX: N91.2 Amenorrhea, unspecified (principal); Z32.02 Encounter for pregnancy test, result negative; F17.210 Nicotine dependence, cigarettes, uncomplicated
CPT/HCPCS: 81025; 84703; 99202; G0463

== ENCOUNTER 2021-05-04 13:34 | Emergency (ER) | payer BC, SELFPAY ==
[2021-05-04 13:38] VITALS: PULSE 114; RESP 16; TEMP 36.7; O2SAT 97; BMI 32.8
--- NOTE | 2021-05-04 13:44 | HMH.EDUTC ---
[facility] [place] Clinical Impression: Viral syndrome Disposition: Home, Self-Care Condition on Discharge: Good Instructions: DI for Viral Syndrome Additional Instructions: Drink plenty of fluids. Take tylenol for pain or fever. Follow up with your regular doctor. GO TO THE ER FOR ANY WORSENING SYMPTOMS Referrals: Leonora Wade APRN [Primary Care Provider] - Forms: Work/School Release Time of Disposition: 13:50 Medical Decision Making - Medical Records Medical records reviewed: No: I reviewed the patient's medical records. - Delmer Inquiry Pt receiving controlled substance: No Vital Signs: 05/04/21 13:38 05/04/21 13:48 Temperature 98.0 F 98 F Temperature Source Oral Pulse Rate 108 H Pulse Rate [Right] 114 H Respiratory Rate 16 16 Blood Pressure 128/83 02 Sat by Pulse Oximetry 97 [facility] [place] HPI - General Stated complaint: covid work release Time Seen by Provider: 05/04/21 13:44 Mode of Arrival: Ambulatory Source of Information: Patient Limitations: No Limitations Description of Symptoms (Recalled from Triage Doc. by RN): pt had a negative covid test yesterday at her place of employment. they now require a medical release to return to work. pt states shes feeling better. HEENT Symptoms (Recalled from RN notes): No Resp Symptoms (Recalled from RN notes): No Skin Symptoms (Recalled from RN notes): No MS Symptoms (Recalled from RN notes): No Functional Status (Recalled from RN notes): na - History of Present Illness Provider Complaint: She states that she has been sick with fatigue, head aches and a scratchy sore throat for the past 2 days. She was tested for covid at her job yesterday and it was negative. - Related Data Allergies Allergy/AdvReac Type Severity Reaction Status Date / Time blueberry Allergy Verified 11/20/20 16:41 cat dander Allergy Verified 11/20/20 16:41 dog dander Allergy Verified 11/20/20 16:41 house dust Allergy Verified 11/20/20 16:41 codfish Allergy Uncoded 10/16/20 11:23 - Worker's Comp Is this a Worker's Comp case?: No [facility] History - Hepatitis A Screen Drug use history?: No High risk sexual behaviors?: No History of sexually transmitted infection?: No Currently employed?: No Childcare worker?: No Do you have indoor plumbing?: Yes Do you have electricity?: Yes Attestation statement:: This patient has been screened for Hepatitis A risk factors. I have reviewed the patient's past medical history: Yes Medical History: Reports:: Asthma Denies:: Diabetes Mellitus Type 1, Diabetes Mellitus Type 2 Other Medical History: Reports: Other Other Surgeries: Yes: No Previous Surgery. No: Amputation: No Fractures: No Comment: 2018-wisdom teeth removed - Social History Smoking Status: Current every day smoker Tobacco Type: cigarettes # Packs/Day (cigarettes): 1 Alcohol Intake: current Alcohol Intake Frequency:: a few times a week Substance Use Type: marijuana, crack/cocaine, hallucinogens Occupational Status: other Housing: house Family Hx:: Hypertension, Asthma ROS Obtained: Yes All systems reviewed & no additional complaints - Constitutional Constitutional: Reports system reviewed and no additional complaints, except as docu, Denies chills, Denies fever(s) - Eyes Eyes: Reports system reviewed and no additional complaints, except as docu - ENT Ears, Nose, Mouth, and Throat: Reports system reviewed and no additional complaints, except as docu - Cardiovascular Cardiovascular: Reports system reviewed and no additional complaints, except as docu - Respiratory Respiratory: Reports system reviewed and no additional complaints, except as docu - Gastrointestinal Gastrointestingal: Reports: system reviewed and no additional complaints, except as docu Physical Exam - General General appearance: alert, in no apparent distress - Head Head exam: atraumatic, normocephalic, normal inspection - Eye Eye exam: Present: norm
[2021-05-04 13:48] VITALS: BP 128/83; PULSE 108; RESP 16; TEMP 36.6
== END 2021-05-04 13:52 | disposition home or self-care (01) ==
PROVIDERS: Emergency Provider Nurse Practitioner Family; PCP Nurse Practitioner Family
DX: B34.9 Viral infection, unspecified (principal); J45.909 Unspecified asthma, uncomplicated
CPT/HCPCS: 99202; G0463

== ENCOUNTER 2021-07-29 08:19 | Emergency (ER) | payer BC, SELFPAY ==
[2021-07-29 08:20] VITALS: BP 135/89; PULSE 106; RESP 20; TEMP 36.7; O2SAT 97; BMI 31.0
--- NOTE | 2021-07-29 08:36 | XR_ITS ---
PROCEDURE INFORMATION: Exam: XR Chest Exam date and time: 07/29/2021 8:36 AM Age: 21 years old Clinical indication: Pain; On breathing; Additional info: Asthma exacerbation TECHNIQUE: Imaging protocol: XR of the chest. Views: 1 view. COMPARISON: CR XR CHEST PORTABLE 11/20/2020 4:41 PM FINDINGS: Lungs: Unremarkable. No consolidation. Pleural spaces: Unremarkable. No pleural effusion. No pneumothorax. Heart/Mediastinum: Unremarkable. No cardiomegaly. Bones/joints: Unremarkable. IMPRESSION: No acute findings.
--- NOTE | 2021-07-29 08:37 | HMH.EDGENADL ---
ED Disposition Clinical Impression: Asthma with exacerbation Qualifiers: Asthma severity: mild Asthma persistence: intermittent Qualified Code(s): J45.21 - Mild intermittent asthma with (acute) exacerbation Disposition: Home, Self-Care Condition on Discharge: Good Instructions: DI for Asthma -- Adult Prescriptions: Fluticasone/Salmeterol [Advair 100/50mcg diskus] 1 inh IH BID #1 applic Transmission Status: Pending to [facility] Fexofenadine HCl [Leilani Allergy] 180 mg PO DAILY #30 tab Transmission Status: Pending to [facility] Referrals: Leonora Wade APRN [Primary Care Provider] - - Critical Care Critical Care Time: No Attestation: On , the high probability of a clinically significant, sudden or life threatening deterioration of the following system(s) required my full and direct attention, intervention and personal management. The time I documented below is in addition to time spent performing reported procedures but includes the following listed in this critical care notation. Medical Decision Making - Medical Records Medical records reviewed: Yes: I reviewed the patient's medical records. - Delmer Inquiry Pt receiving controlled substance: No Vital Signs: 07/29/21 08:20 07/29/21 08:45 Temperature 98.1 F Temperature Source Oral Pulse Rate 110 H Pulse Rate [Right Radial] 106 H Respiratory Rate 20 Blood Pressure [Right Arm] 135/89 Blood Pressure Mean [Right Arm] 104 Blood Pressure Source [Right Arm] Automatic Cuff Blood Pressure Position [Right Arm] Sitting 02 Sat by Pulse Oximetry 97 Oxygen Delivery Method Room Air Orders (Tests/Meds): ED MEDICATIONS Discontinued Medications Generic Name Dose Route Start Last Admin Trade Name Omar PRN Reason Stop Dose Admin Albuterol/Ipratropium 3 ml 07/29/21 08:36 07/29/21 08:45 Ipratropium/Albuterol 3 Ml Neb IH 07/29/21 08:37 3 ml ONCE ONE Administration Dexamethasone 10 mg 07/29/21 08:36 07/29/21 08:50 Dexamethasone 4mg Tablet PO 07/29/21 08:37 10 mg ONCE ONE Administration ORDERS Category Date Time Status XR chest portable Stat Exams 07/29/21 08:36 Taken Medical Decision Narrative: 21-year-old female presents to the emergency department with complaints of asthma exacerbation. Patient states that she has a strong history of asthma, and often gets flares or exacerbations when she is around animals that she is allergic to, which she was last night. Patient was out of her rescue medications at home. Patient is hemodynamically stable satting 96% on room air on arrival. Will obtain single view chest x-ray and treat patient with inhaled nebulizer treatment as well as p.o. Decadron. On reevaluation, patient feels much improved, and has clear lung sounds bilaterally. O2 99% on room air. Patient will be discharged home with prescription for Leilani as well as prescription for Advair or equivalent to begin taking daily for prevention of these asthma exacerbations. Patient was advised to follow-up with primary care physician about these things. General Adult HPI - General Chief complaint: Shortness of Breath/Dyspnea Stated complaint: asthma attack Time Seen by Provider: 07/29/21 08:37 Mode of Arrival: Ambulatory Source of Information: Patient Limitations: No Limitations Description of Symptoms (Recalled from ER Triage Doc. by RN): Pt reports asthma attack, states began feeling SOA at approx 0600. States she was out of rescue inhaler and couldn't find her attachments for nebulizer machine. Pt denies covid exposure. - History of Present Illness HPI narrative: 21 y/o F with PMHx allergies and asthma who presents to ED with asthma exacerbation. Patient states she does not take daily medications aside from claritin, and states she often gets flares of her asthma when she's around things she's allergic to, such as dogs and cats. She states when this happens, she will usually take her em
[2021-07-29 08:45] VITALS: PULSE 110; PULSE 111
[2021-07-29 09:53] VITALS: BP 135/89; PULSE 106; RESP 18; TEMP 36.7; O2SAT 97
== END 2021-07-29 09:53 | disposition home or self-care (01) ==
PROVIDERS: Emergency Provider Emergency Medicine; PCP Nurse Practitioner Family
DX: J45.21 Mild intermittent asthma with (acute) exacerbation (principal); F17.210 Nicotine dependence, cigarettes, uncomplicated
CPT/HCPCS: 71045; 99282

== ENCOUNTER 2021-10-06 00:16 | Emergency (ER) | payer BC, SELFPAY ==
[2021-10-06 00:17] VITALS: BP 129/73; PULSE 131; RESP 24; TEMP 36.7; O2SAT 95; BMI 33.6
--- NOTE | 2021-10-06 00:28 | XR_ITS ---
PROCEDURE INFORMATION: Exam: XR Chest Exam date and time: 10/06/2021 12:28 AM Age: 21 years old Clinical indication: Shortness of breath; Patient HX: Asthma attack; Additional info: SOA TECHNIQUE: Imaging protocol: XR of the chest. Views: 2 views. COMPARISON: CR XR CHEST PORTABLE 07/29/2021 8:48 AM FINDINGS: Lungs: Unremarkable. No consolidation. Pleural spaces: No pleural effusion. No pneumothorax. Heart/Mediastinum: Normal heart size. Bones/joints: Unremarkable. IMPRESSION: No acute findings.
[2021-10-06 00:42] LABS: Basophils # 0.1 K/mm3 (0-0.2); Eosinophils # 0.5 K/mm3 (0.0-0.4); Eosinophils % 5.6 % (0.1-12.0); Hematocrit 45.2 % (37.0-47.0); Hemoglobin 15.3 g/dL (12.2-16.2); Lymphocytes # 3.6 K/mm3 (0.7-4.5); Lymphocytes % 38.5 % (10-50); Mean Corpuscular HGB Conc 33.9 g/dL (31.8-35.4); Mean Corpuscular Hemoglobin 30.8 pg (27.0-31.2); Mean Corpuscular Volume 90.7 fl (81-99); Mean Platelet Volume 9.1 fl (7.4-10.4); Monocytes # 0.4 K/mm3 (0.1-1.0); Monocytes % 4.3 % (1.7-9.3); Neutrophils # 4.8 K/mm3 (1.8-7.8); Neutrophils % 50.6 % (37.0-80.0); Platelet Count 281 K/mm3 (142-424); Red Blood Count 4.98 M/mm3 (4.20-5.40); Red Cell Distribution Width 13.2 % (11.5-17.5); White Blood Count 9.4 K/mm3 (4.8-10.8)
[2021-10-06 00:50] LABS: HCG Qualitative, Serum Negative (Negative)
[2021-10-06 00:51] LABS: Alanine Aminotransferase 14 U/L (12-78); Albumin Level 4.5 g/dl (3.5-5.0); Albumin/Globulin Ratio 1.4 (1.1-1.8); Alkaline Phosphatase 55 U/L (38-126); Aspartate Amino Transferase 31 U/L (14-36); Bilirubin,Total 0.2 mg/dl (0.2-1.3); Blood Urea Nitrogen 11 mg/dl (7-17); Calcium 9.4 mg/dl (8.4-10.2); Carbon Dioxide 30 mmol/L (22.0-30.0); Chloride 105 mmol/L (98-107); Creatinine Clearance Estimated 225 mL/min (50-200); Estimated Glomerular Filt Rate 124 ml/min (>60); GFR (African American) 150 ML/MIN (>60); Globulin 3.2 g/dL (1.3-3.2); Glucose 106 mg/dl (74-100); Sodium 141 mmol/L (136-145); Total Protein,Serum 7.7 g/dl (6.3-8.2)
--- NOTE | 2021-10-06 00:54 | HMH.EDASTHMA ---
ED Disposition Clinical Impression: Asthma Qualifiers: Asthma severity: moderate Asthma persistence: unspecified Asthma complication type: with acute exacerbation Qualified Code(s): J45.901 - Unspecified asthma with (acute) exacerbation Disposition: Home, Self-Care Condition on Discharge: Good Instructions: DI for Asthma -- Adult Additional Instructions: fluids and see pcp for follow up Prescriptions: predniSONE [Prednisone 20mg Tab] 20 mg PO BID #10 tab Transmission Status: Pending to [facility] Referrals: Leonora Wade APRN [Primary Care Provider] - - Critical Care Critical Care Time: No Attestation: On 10/06/21, the high probability of a clinically significant, sudden or life threatening deterioration of the following system(s) required my full and direct attention, intervention and personal management. The time I documented below is in addition to time spent performing reported procedures but includes the following listed in this critical care notation. Medical Decision Making - Medical Records Medical records reviewed: Yes: I reviewed the patient's medical records. - Delmer Inquiry Pt receiving controlled substance: No Vital Signs: 10/06/21 00:17 Temperature 98.1 F Temperature Source Oral Pulse Rate [Right] 131 H Respiratory Rate 24 Blood Pressure [Right Arm] 129/73 Blood Pressure Mean [Right Arm] 91 02 Sat by Pulse Oximetry 95 Oxygen Delivery Method Room Air - Lab Data Lab results reviewed: Yes: I reviewed the patient's lab results. Lab Results 10/06/21 00:32: WBC 9.4, RBC 4.98, Hgb 15.3, Hct 45.2, MCV 90.7, MCH 30.8, MCHC 33.9, RDW 13.2, Plt Count 281, MPV 9.1, Neut % (Auto) 50.6, Lymph % (Auto) 38.5, [place] % (Auto) 4.3, Eos % (Auto) 5.6, Baso % (Auto) 1.0, Neut # (Auto) 4.8, Lymph # (Auto) 3.6, [place] # (Auto) 0.4, Eos # (Auto) 0.5 H, Baso # (Auto) 0.1, ESR 15 10/06/21 00:32: Sodium 141, Potassium 4.0, Chloride 105, Carbon Dioxide 30, Anion Gap 10.0, BUN 11, Creatinine 0.60, Estimated Creat Clear 225, Estimated GFR 124, Est GFR ( Amer) 150, Glucose 106 H, Calcium 9.4, Total Bilirubin 0.2, AST 31, ALT 14, Alkaline Phosphatase 55, C-Reactive Protein 1.9, Total Protein 7.7, Albumin 4.5, Globulin 3.2, Albumin/Globulin Ratio 1.4 10/06/21 00:32: Serum HCG, Qual Negative Result diagrams: 10/06/21 00:32 10/06/21 00:32 Orders (Tests/Meds): ED MEDICATIONS Generic Name Dose Route Start Last Admin Trade Name Freq PRN Reason Stop Dose Admin Albuterol Sulfate 2 puffs 10/06/21 00:27 10/06/21 00:47 Albuterol-Hfa 90mcg/Puff Inhaler 8gm IH 11/05/21 00:26 2 puffs Q6HP PRN Administration Shortness Of Breath Discontinued Medications Generic Name Dose Route Start Last Admin Trade Name Freq PRN Reason Stop Dose Admin Levalbuterol HCl 1.25 mg 10/06/21 00:27 10/06/21 00:47 Levalbuterol 1.25mg/3ml Neb 10/06/21 00:28 1.25 mg ONCE ONE Administration Methylprednisolone Sodium Succinate 125 mg 10/06/21 00:28 10/06/21 00:36 Methylprednisolone Sod Succ 125mg Vial IV 10/06/21 00:29 125 mg ONCE ONE Administration Miscellaneous 1 unit 10/06/21 00:27 10/06/21 00:47 Aerochamber/Optihaler 10/06/21 00:28 1 unit ONCE ONE Administration ORDERS Category Date Time Status Chest XR 2 view (NOT portable) [XR chest 2V] Stat Exams 10/06/21 00:28 Taken C-Reactive Protein Stat Lab 10/06/21 00:32 Results Comprehensive Metabolic Panel Stat Lab 10/06/21 00:32 Results Procalcitonin Stat Lab 10/06/21 00:32 Results - Radiology Data #1 Image(s): Chest Image Reviewed: Yes I reviewed the patient's radiology image Preliminary Findings: Normal/NAD Medical Decision Narrative: improved after treatment and will d/c on steroids Asthma HPI - General Chief Complaint: Shortness of Breath/Dyspnea Stated Complaint: Asthma Attack Time Seen by Provider: 10/06/21 00:25 Mode of Arrival - ED Triage: Ambulatory ED Triage Source of In
[2021-10-06 00:56] LABS: C-Reactive Protein 1.9 mg/L (0-4)
[2021-10-06 01:07] LABS: Erythrocyte Sedimentation Rate 15 mm/hr (0-20)
[2021-10-06 01:10] LABS: Procalcitonin 0.033 ng/mL (0.0-2.0)
[2021-10-06 01:17] VITALS: BP 120/54; PULSE 106; RESP 20; TEMP 36.8; O2SAT 98
== END 2021-10-06 01:23 | disposition home or self-care (01) ==
PROVIDERS: Emergency Provider Emergency Medicine; PCP Nurse Practitioner Family
DX: J45.901 Unspecified asthma with (acute) exacerbation (principal); F17.210 Nicotine dependence, cigarettes, uncomplicated
CPT/HCPCS: 71046; 80053; 84145; 84703; 85025; 85651; 86140; 99282

== ENCOUNTER → 2021-11-15 12:23 | Outpatient (CLI) | payer BC, SELFPAY | PROVIDERS: Visit Provider Nurse Practitioner | DX: U07.1 COVID-19 (principal) | CPT/HCPCS: C9803; U0003; U0005 ==

== ENCOUNTER 2021-11-25 22:10 | Emergency (ER) | payer BC, SELFPAY ==
[2021-11-25 22:11] VITALS: BP 164/88; PULSE 118; RESP 18; TEMP 36.9; O2SAT 98; BMI 32.5
--- NOTE | 2021-11-25 22:34 | HMH.EDGENADL ---
ED Disposition Clinical Impression: Pilonidal abscess Disposition: Home, Self-Care Condition on Discharge: Good Prescriptions: cephALEXin [Keflex 750mg Cap] 500 mg PO BID #10 cap Transmission Status: Pending to [id number] Referrals: Leonora Wade APRN [Primary Care Provider] - - Critical Care Critical Care Time: No Attestation: On 11/25/21, the high probability of a clinically significant, sudden or life threatening deterioration of the following system(s) required my full and direct attention, intervention and personal management. The time I documented below is in addition to time spent performing reported procedures but includes the following listed in this critical care notation. Medical Decision Making - Medical Records Medical records reviewed: Yes: I reviewed the patient's medical records. - [place] Inquiry Pt receiving controlled substance: No Medical Decision Narrative: Patient is a 21-year-old female otherwise healthy presents ED today with bilateral abscess. Patient is well-appearing nurse evaluation, no evidence of systemic infection, on exam the abscess is at the superior gluteal cleft, there is no evidence of deep tracking, there is no pain around the perirectal area, patient states she has not had any history of inflammatory bowel disease and no other risk factors of immunosuppression that would correlate with severe infection. I have performed a bedside drainage, with purulent drainage emanating after stab incision, patient feels mild symptomatic improvement after this, will treat with Keflex 500 3 times daily first 7 days, have follow-up with outpatient. Given return precautions return to the ED with any new or worsening symptoms specifically we discussed signs of worsening infection with fevers, extending infection or redness, she has verbalized understanding this point, we also discussed with the patient using sits baths at home, warm compresses and keeping the area clean and dry. Pt given first two doses of abx to take at home per the inclimate weather. General Adult HPI - General Stated complaint: boil on butt Time Seen by Provider: 11/25/21 22:22 - History of Present Illness HPI narrative: Patient is a 21-year-old female presents the ED today for evaluation of pilonidal infection. Patient states she has had a boil on her buttock, states that this has been present for the last 2 days, but has had difficulty sitting today, presents with worsening pain. Patient states he is worried that there is an infection there, has never had this happen to her before, patient is otherwise healthy with no prior medical problems, states she has not taken any medications for this other than Tylenol at home, states that has not had any fevers, nausea, vomiting, difficult or painful urination or stool. - Related Data Previous Rx's Medication Instructions Recorded predniSONE [Prednisone 20mg 20 mg PO BID #10 tab 10/06/21 Tab] cephALEXin [Keflex 750mg Cap] 500 mg PO BID #10 cap 11/25/21 Allergies Allergy/AdvReac Type Severity Reaction Status Date / Time blueberry Allergy Verified 11/20/20 16:41 cat dander Allergy Verified 11/20/20 16:41 dog dander Allergy Verified 11/20/20 16:41 house dust Allergy Verified 11/20/20 16:41 codfish Allergy Uncoded 10/16/20 11:23 [facility] History - Hepatitis A Screen Attestation statement:: This patient has been screened for Hepatitis A risk factors. Medical History: Reports:: Asthma Denies:: Diabetes Mellitus Type 1, Diabetes Mellitus Type 2 Other Medical History: Reports: Other Other Surgeries: Yes: No Previous Surgery. No: Amputation: No Fractures: No Comment: 2018-wisdom teeth removed - Social History Smoking Status: Current every day smoker Tobacco Type: cigarettes # Packs/Day (cigarettes): 1 (vapes currently) Alcohol Intake: never Alcohol Intake Frequency:: a few times a week Substance Use Type: marijuana, crack/co
[2021-11-25 22:44] VITALS: BP 133/85; PULSE 81; RESP 18; TEMP 36.9; O2SAT 98
== END 2021-11-25 22:52 | disposition home or self-care (01) ==
PROVIDERS: Emergency Provider Student in an Organized Health Care Education/Training Program; PCP Nurse Practitioner Family
DX: L05.01 Pilonidal cyst with abscess (principal); Z3A.10 10 weeks gestation of pregnancy
CPT/HCPCS: 10080; 99283

== ENCOUNTER 2022-07-04 13:13 | Emergency (ER) | payer OTHER, SELFPAY ==
[2022-07-04 14:30] VITALS: BP 108/76; PULSE 129; RESP 19; TEMP 37; O2SAT 98; BMI 29.7
--- NOTE | 2022-07-04 14:52 | EXP.UTC ---
Discharge Plan Disposition Patient Disposition: Still a Patient Condition: Fair Chief Complaint: Abdominal Pain Prescriptions Prescriptions: No Action No Known Home Medications Referrals Referrals: Leonora Wade APRN [Primary Care Provider] - Enter time for follow up Instructions Patient Instructions: DI for Acute Abdominal Pain Discharge ED Provider: Denisha Fregoso [facility] [place] General Chief complaint: Abdominal Pain Stated complaint: chills,stomach pain Mode of Arrival: Ambulatory Source of Information: Patient Limitations: No Limitations Time Seen by Provider: 07/04/22 15:21 Description of Symptoms (Recalled from Triage Doc. by RN): PATIENT C/O HEADACHE, LOWER ABDOMINAL CRAMPING, LOWER BACK PAIN, CHILLS, AND BODY ACHES X 3 DAYS HEENT Symptoms (Recalled from RN notes): Yes Resp Symptoms (Recalled from RN notes): No Skin Symptoms (Recalled from RN notes): No MS Symptoms (Recalled from RN notes): No Functional Status (Recalled from RN notes): WNL History of Present Illness Provider Complaint: Patient states that she has been having bodyaches, chills, headache pain in lower abdomen, low back pain for several days that has continued to get worse and has had some vomiting States she just had a baby about a month ago with natural and when she bent over to put him in the crib she started urinating and wasnt able to control it or stop it and she has done that several times since States that today she was still having pain in her stomach and just does not feel well so she came in Related Data Home Medications Medication Instructions Recorded Confirmed No Known Home Medications 07/04/22 07/04/22 Allergies Allergy/AdvReac Type Severity Reaction Status Date / Time blueberry Allergy Verified 06/25/22 09:08 cat dander Allergy Verified 06/25/22 09:08 dog dander Allergy Verified 06/25/22 09:08 house dust Allergy Verified 06/25/22 09:08 codfish Allergy Uncoded 06/25/22 09:08 Worker's Comp Is this a Worker's Comp case?: No [facility] Medical History Anxiety Asthma Depression HTN (hypertension) Surgical History [place] teeth extracted Family History Other No significant family history Social History (Updated 07/04/22 @ 15:52 by Leena Sage RN) Smoking Status: Current every day smoker tobacco type: cigarettes packs per day: 1 second hand exposure: Yes alcohol intake: former substance use type: denies use current occupational status: other housing: house ROS Obtained: Yes All systems reviewed & no additional complaints except as documented and Yes Systems reviewed as appropriate & no additional complaints except as documented Constitutional Constitutional: Reports system reviewed and no additional complaints, except as documented, Reports as per HPI, Reports body ache, Reports chills, Reports fatigue and Reports headache(s) Eyes Eyes: Reports system reviewed and no additional complaints, except as documented ENT Ears, Nose, Mouth, and Throat: Reports system reviewed and no additional complaints, except as documented and Reports headache(s) Cardiovascular Cardiovascular: Reports system reviewed and no additional complaints, except as documented Respiratory Respiratory: Reports system reviewed and no additional complaints, except as documented and Reports as per HPI Gastrointestinal Gastrointestingal: Reports system reviewed and no additional complaints, except as documented, as per HPI and abdominal pain Genitourinary Female Genitourinary: Reports system reviewed and no additional complaints, except as documented, Reports flank pain and Reports urinary incontinence Musculoskeletal Musculoskeletal: Reports system reviewed and no additional complaints, except as documented, Reports as per HPI and Reports back pa
[2022-07-04 15:00] LABS: Apearance,Urine Turbid (Clear); Color,Urine Yellow (Yellow)
[2022-07-04 15:01] LABS: PH,Urine 5.5 (5.0-8.5)
[2022-07-04 15:03] LABS: Bilirubin,Urine Negative (Negative); Blood, Urine 3+ (Negative); Glucose,Urine (UA) Negative (Negative); Ketones,Urine Negative (Negative); Protein,Urine 3+ (Negative); Specific Gravity, Urine >= 1.030 (1.005-1.030); UTC Leukocyte Esterase,Urine 1+ (Negative); UTC Nitrate,Urine Negative (Negative); Urobilinogen,Urine 0.2 EU/dl (0.2)
--- NOTE | 2022-07-04 15:09 | PC.NURSE ---
PATIENT SENT TO ER PER Vahid MORRIS APRN FOR FURTHER EVALUATION. REPORT GIVEN TO Adele GUTIERREZ RN
[2022-07-04 15:11] VITALS: BP 115/67; PULSE 129; RESP 18; TEMP 37.2; O2SAT 98; BMI 29.8
--- NOTE | 2022-07-04 15:31 | HMH.EDGENADL ---
Discharge Plan Disposition Patient Disposition: Home, Self-Care Condition: Good Chief Complaint: Abdominal Pain Prescriptions Prescriptions: New ondansetron 4 mg tablet,disintegrating 4 mg PO Q8H PRN (Reason: nausea and vomiting) 3 Days Qty: 12 0RF sulfamethoxazole-trimethoprim [Bactrim DS] 800-160 mg tablet 1 tab PO Q12H 10 Days Qty: 20 0RF Referrals Referrals: Leonora Wade APRN [Primary Care Provider] - Enter time for follow up Activity Restrictions/Add. Instructions Additional Instructions/Restrictions: You were evaluated in the emergency department today. You were diagnosed with a urinary tract infection. Please rock picker your prescription for your antibiotics at the pharmacy and take them as prescribed. Follow-up with your primary care provider and your [employer] over the next 48 hours. Return to the emergency department for any new or worsening symptoms. Make sure you orally hydrate at home. Clinical Impressions Clinical Impression: UTI (urinary tract infection) Qualifiers: Urinary tract infection type: acute cystitis Hematuria presence: with hematuria Qualified Code(s): N30.01 - Acute cystitis with hematuria Instructions Patient Instructions: DI for Urinary Tract Infection (UTI), DI for Acute Abdominal Pain Discharge ED Provider: Denisha Fregoso General Adult HPI General Chief complaint: Abdominal Pain Stated complaint: chills,stomach pain Time Seen by Provider: 07/04/22 15:21 Mode of Arrival: Ambulatory Limitations: No Limitations Description of Symptoms (Recalled from ER Triage Doc. by RN): c/o chills, abdomen pain since Friday and each day it has gotten worse to where she is urinating on her self and after urinating she feels pressure and some vomiting and abdomen pain History of Present Illness HPI narrative: This patient is a 22-year-old female who recently gave approximately 1 month ago presented to the emergency department for evaluation of dysuria, polyuria, urinary incontinence, suprapubic pain and cramping, flank pain, nausea, and body aches that started several days ago and have progressively worsened since. She states that she has also had light vaginal spotting since , but no passage of large clots or other concerns. She has taken some ibuprofen without significant relief. She also admits to constipation. She states that she had incontinence today when trying to put her son in his bouncer. Of note, she has a pilonidal cyst, which she is planning to have removed soon. She was sent over from urgent treatment center with concern for possible pyelonephritis. Related Data Previous Rx's Medication Instructions Recorded ondansetron 4 mg disintegrating 4 mg PO Q8H PRN nausea and 07/04/22 tablet vomiting 3 days #12 tabs sulfamethoxazole 800 1 tab PO Q12H 10 days #20 tabs 07/04/22 mg-trimethoprim 160 mg tablet (Bactrim DS) Allergies Allergy/AdvReac Type Severity Reaction Status Date / Time blueberry Allergy Verified 06/25/22 09:08 cat dander Allergy Verified 06/25/22 09:08 dog dander Allergy Verified 06/25/22 09:08 house dust Allergy Verified 06/25/22 09:08 codfish Allergy Uncoded 06/25/22 09:08 PFSH PFSH Medical History Anxiety Asthma Depression HTN (hypertension) Surgical History [place] teeth extracted Family History Other No significant family history Social History (Updated 07/04/22 @ 16:50 by Mariana Nick APRN) Smoking Status: Current every day smoker tobacco type: cigarettes packs per day: 1 second hand exposure: Yes alcohol intake: former substance use type: denies use current occupational status: other Travel in the last 8 weeks: None housing: house ROS Obtained: Yes All systems reviewed & no additional complaints except as documented 14 point review o
--- NOTE | 2022-07-04 15:53 | PC.NURSE ---
pt given warm blanket at this time
--- NOTE | 2022-07-04 15:55 | ECG_ITS ---
APPROVED REPORT Exam: Resting ECG HR:116 bpm ECG Measurements Heart Rate 116 AXES DE 115 P 65 QRSd 91 QRS 80 QT 308 T 37 QTc 377 Conclusion SINUS TACHYCARDIA WITH SHORT DE INTERVAL MODERATE ST DEPRESSION [0.05+ mV ST DEPRESSION] ABNORMAL ECG UNCONFIRMED REPORT Electronically signed by : Sanju Masters MD 07/06/2022 08:06:25
[2022-07-04 16:05] LABS: Alanine Aminotransferase 18 U/L (12-78); Albumin Level 3.9 g/dl (3.5-5.0); Albumin/Globulin Ratio 1.1 (1.1-1.8); Alkaline Phosphatase 127 U/L (38-126); Anion Gap 11.5 mEq/L (5-15); Aspartate Amino Transferase 25 U/L (14-36); Bilirubin,Total 0.3 mg/dl (0.2-1.3); Blood Urea Nitrogen 13 mg/dl (7-17); Calcium 9.1 mg/dl (8.4-10.2); Carbon Dioxide 28 mmol/L (22.0-30.0); Chloride 103 mmol/L (98-107); Creatinine Clearance Estimated 131 mL/min (50-200); Estimated Glomerular Filt Rate 77 ml/min (>60); GFR (African American) 93 ML/MIN (>60); Globulin 3.5 g/dL (1.3-3.2); Glucose 108 mg/dl (74-100); Potassium 3.5 mmoL/L (3.5-5.1); Sodium 139 mmol/L (136-145); Total Protein,Serum 7.4 g/dl (6.3-8.2)
[2022-07-04 16:10] LABS: Basophils # 0.1 K/mm3 (0-0.2); Basophils % 0.5 % (0.1-2.0); Eosinophils % 0.1 % (0.1-12.0); Hematocrit 40.1 % (37.0-47.0); Hemoglobin 13.2 g/dL (12.2-16.2); Lymphocytes # 1.1 K/mm3 (0.7-4.5); Lymphocytes % 9.6 % (10-50); Mean Corpuscular Hemoglobin 31.6 pg (27.0-31.2); Mean Corpuscular Volume 95.6 fl (81-99); Mean Platelet Volume 10.7 fl (7.4-10.4); Monocytes # 0.8 K/mm3 (0.1-1.0); Monocytes % 6.5 % (1.7-9.3); Neutrophils # 9.7 K/mm3 (1.8-7.8); Neutrophils % 83.2 % (37.0-80.0); Platelet Count 160 K/mm3 (142-424); Red Blood Count 4.19 M/mm3 (4.20-5.40); Red Cell Distribution Width 14.9 % (11.5-17.5); White Blood Count 11.7 K/mm3 (4.8-10.8)
--- NOTE | 2022-07-04 17:10 | PC.NURSE ---
YAN SHEEHAN at for update on POC/results
[2022-07-04 18:00] VITALS: BP 120/69; PULSE 128; RESP 18; TEMP 37.1; O2SAT 99
== END 2022-07-04 18:00 | disposition home or self-care (01) ==
LOC: UTC 15:08 → ER 15:09
PROVIDERS: Nurse Practitioner; Emergency Provider Emergency Medicine; PCP Nurse Practitioner Family
DX: N30.01 Acute cystitis with hematuria (principal); Z72.0 Tobacco use; Z86.19 Personal history of other infectious and parasitic diseases; J45.909 Unspecified asthma, uncomplicated; J30.2 Other seasonal allergic rhinitis
CPT/HCPCS: 80053; 81003; 83605; 85025; 87086; 87088; 87186; 93005; 96365; 99284; C9803; U0003; U0005

== ENCOUNTER → 2022-07-06 08:34 | Outpatient (CLI) | payer OTHER, SELFPAY ==
[2022-07-06 09:15] LABS: Basophils % 0.1 % (0.1-2.0); Eosinophils # 0.1 K/mm3 (0.0-0.4); Eosinophils % 0.9 % (0.1-12.0); Hematocrit 36.4 % (37.0-47.0); Hemoglobin 11.4 g/dL (12.2-16.2); Lymphocytes # 0.6 K/mm3 (0.7-4.5); Lymphocytes % 10.6 % (10-50); Mean Corpuscular HGB Conc 31.3 g/dL (31.8-35.4); Mean Corpuscular Hemoglobin 30.5 pg (27.0-31.2); Mean Corpuscular Volume 97.6 fl (81-99); Mean Platelet Volume 11.1 fl (7.4-10.4); Monocytes # 0.3 K/mm3 (0.1-1.0); Monocytes % 5.3 % (1.7-9.3); Neutrophils # 4.7 K/mm3 (1.8-7.8); Platelet Count 143 K/mm3 (142-424); Red Blood Count 3.73 M/mm3 (4.20-5.40); Red Cell Distribution Width 14.7 % (11.5-17.5); White Blood Count 5.6 K/mm3 (4.8-10.8)
[2022-07-06 09:44] LABS: Anion Gap 13.1 mEq/L (5-15); Blood Urea Nitrogen 17 mg/dl (7-17); Calcium 8.9 mg/dl (8.4-10.2); Carbon Dioxide 23 mmol/L (22.0-30.0); Chloride 105 mmol/L (98-107); Estimated Glomerular Filt Rate 55 ml/min (>60); GFR (African American) 67 ML/MIN (>60); Glucose 143 mg/dl (74-100); Potassium 3.1 mmoL/L (3.5-5.1); Sodium 138 mmol/L (136-145)
== END ==
PROVIDERS: PCP Nurse Practitioner Family; Visit Provider Surgery
DX: Z01.812 Encounter for preprocedural laboratory examination (principal); L05.01 Pilonidal cyst with abscess
CPT/HCPCS: 36415; 80048; 85025

== ENCOUNTER 2022-11-16 14:46 | Emergency (ER) | payer OTHER, SELFPAY ==
[2022-11-16 14:46] VITALS: BP 141/79; PULSE 112; RESP 18; TEMP 36.7; O2SAT 97; BMI 30.8
[2022-11-16 14:57] LABS: Microscopic, Urine URINE MICROSCOPIC (MICROSCOPIC)
[2022-11-16 15:00] VITALS: BP 151/91; PULSE 98; RESP 18; O2SAT 97
[2022-11-16 15:04] LABS: Urine Pregnancy, HCG Qual. Positive (Negative)
--- NOTE | 2022-11-16 15:14 | PC.NURSE ---
Radiology has been notified to call in [place] for an US
--- NOTE | 2022-11-16 15:16 | US_ITS ---
PROCEDURE INFORMATION: Exam: US , Transvaginal Exam date and time: 11/16/2022 3:50 PM Age: 22 years old Clinical indication: complicated by abdominal or pelvic pain; Lower; First trimester (<14 weeks 0 days); Gestational age or lmp: 7w1; ; Patient HX: Early preg with pain-- eval for ectopic TECHNIQUE: Imaging protocol: Real-time transvaginal obstetrical ultrasound of the maternal pelvis with image documentation. Transvaginal imaging was used for better evaluation of the fetus, adnexa, and/or cervix. COMPARISON: CT ABDOMEN PELVIS W CON 11/20/2019 3:49 AM FINDINGS: Gestation: Yolk sac is visualized. heart rate: 147 bpm. Placenta: No obvious subchorionic hematoma identified. Developing decidual reaction/placenta visualized. BIOMETRY: Gestational age (AUA): Living, Marte intrauterine gestation with crown-rump length measuring 10.85 mm for estimated gestational age of 7 weeks, 2 days. MATERNAL: Right ovary/adnexa: Right ovary measures 2.4 x 1.3 x 1.5 cm unremarkable. Left ovary/adnexa: Left ovary measures 3.0 x 2.1 x 1.8 cm and is unremarkable. IMPRESSION: Living, Marte intrauterine gestation with estimated gestational age of 7 weeks, 2 days.
[2022-11-16 15:30] VITALS: BP 130/79; PULSE 99; O2SAT 97
[2022-11-16 15:39] LABS: Appearance,Urine Clear (Clear); Color,Urine Yellow (Yellow); Glucose,Urine (UA) Negative (Negative); Protein,Urine Negative (Negative); Specific Gravity, Urine 1.005 (1.005-1.030)
[2022-11-16 15:40] LABS: Bilirubin,Urine Negative (Negative); Blood, Urine Negative (Negative); Ketones,Urine Moderate (Negative); Leukocyte Esterase,Urine 2+ (Negative); Nitrate,Urine Negative (Negative); Urobilinogen,Urine N EU/dl (0.2)
--- NOTE | 2022-11-16 15:47 | PC.NURSE ---
pt transported to ultrasound.
--- NOTE | 2022-11-16 16:12 | HMH.EDGENADL ---
Discharge Plan Disposition Patient Disposition: Home, Self-Care Condition: Fair Prescriptions Prescriptions: New cefdinir 300 mg capsule 300 mg PO BID 5 Days Qty: 10 0RF amoxicillin 875 mg tablet 875 mg PO BID Qty: 10 0RF Referrals Follow up/Referrals: Leonora Wade APRN [Primary Care Provider] - See instructions Clinical Impressions Clinical Impression: UTI (urinary tract infection) Instructions Patient Instructions: DI for Urinary Tract Infection (UTI) Discharge ED Provider: Damian Helton General Adult HPI General Chief complaint: Abdominal Pain Stated complaint: stomach pain, , unaware of how long Time Seen by Provider: 11/16/22 14:50 Mode of Arrival: Ambulatory Source of Information: Patient Limitations: No Limitations Description of Symptoms (Recalled from ER Triage Doc. by RN): c/o lower abdomen cramping and lower back pain that started 2 days ago. PT is unsure how far along she is but took a test October 15 and it was positive, she thinks her last period was the beginning of September. Denies any vagianl bleeding. History of Present Illness HPI narrative: Patient is a 22-year-old female with no pertinent past medical history who presents with concern for abdominal cramping and lower back pain. She says that she suffers from chronic lower back pain but it might be a little worse than normal. She also complains of abdominal cramping in her suprapubic region but also says that it is on bilateral lower quadrants as well. She says that it is intermittent and seems to come and go. Denies any vaginal bleeding. Her back pain is worse with movement. Denies any numbness or tingling. Denies any saddle anesthesia. Denies any bowel or bladder incontinence. Related Data Previous Rx's Medication Instructions Recorded amoxicillin 875 mg tablet 875 mg PO BID #10 tabs 11/16/22 cefdinir 300 mg capsule 300 mg PO BID 5 days #10 caps 11/16/22 Allergies Allergy/AdvReac Type Severity Reaction Status Date / Time blueberry Allergy Verified 07/18/22 10:18 cat dander Allergy Verified 07/18/22 10:18 dog dander Allergy Verified 07/18/22 10:18 house dust Allergy Verified 07/18/22 10:18 codfish Allergy Uncoded 07/18/22 10:18 [facility] Disclaimer: The information contained in this section may have been updated after the patient was seen, as this information can be updated by other users. Medical History Anxiety Asthma Depression HTN (hypertension) Surgical History [place] teeth extracted Family History Other No significant family history Social History Smoking Status: Current every day smoker tobacco type: cigarettes packs per day: 1 second hand exposure: Yes alcohol intake: former substance use type: denies use current occupational status: other Travel in the last 8 weeks: None housing: house ROS Obtained: Yes All systems reviewed & no additional complaints except as documented A 14 point review of system was obtained and otherwise negative except per HPI Physical Exam General General appearance: alert and in no apparent distress Head Head exam: atraumatic, normocephalic and normal inspection Eye Eye exam: Present normal appearance, PERRL and EOMI ENT ENT exam: Present normal exam, normal oropharynx, mucous membranes moist, TM's normal bilaterally and normal external ear exam Neck Neck exam: Present normal inspection, full ROM and trachea midline; Absent meningismus or lymphadenopathy Chest Chest inspection: Present normal inspection and symmetric chest wall rise; Absent tenderness Respiratory Respiratory exam: Present normal lung sounds bilaterally; Absent respiratory distress Cardiovascular Cardi
[2022-11-16 16:29] VITALS: BP 155/90; PULSE 86; RESP 19; TEMP 36.7; O2SAT 99
== END 2022-11-16 16:36 | disposition home or self-care (01) ==
PROVIDERS: Emergency Provider Student in an Organized Health Care Education/Training Program; PCP Nurse Practitioner Family
DX: O23.41 Unspecified infection of urinary tract in pregnancy, first trimester (principal); O10.011 Pre-existing essential hypertension complicating pregnancy, first trimester; Z3A.01 Less than 8 weeks gestation of pregnancy; O99.341 Other mental disorders complicating pregnancy, first trimester; F41.9 Anxiety disorder, unspecified; O99.511 Diseases of the respiratory system complicating pregnancy, first trimester; J45.909 Unspecified asthma, uncomplicated; O99.331 Smoking (tobacco) complicating pregnancy, first trimester; F17.210 Nicotine dependence, cigarettes, uncomplicated
CPT/HCPCS: 76817; 81001; 81025; 87086; 99284

== ENCOUNTER → 2022-11-26 18:43 | Outpatient (CLI) | payer OTHER, SELFPAY | PROVIDERS: PCP Nurse Practitioner Obstetrics & Gynecology; Visit Provider Nurse Practitioner Obstetrics & Gynecology | DX: Z34.90 Encounter for supervision of normal pregnancy, unspecified, unspecified trimester (principal) | CPT/HCPCS: 87086; 87088; 87186 ==

== ENCOUNTER → 2022-12-05 08:59 | Outpatient (CLI) | payer OTHER, SELFPAY ==
[2022-12-05 10:04] LABS: Basophils % 0.6 % (0.1-2.0); Eosinophils # 0.1 K/mm3 (0.0-0.4); Eosinophils % 1.5 % (0.1-12.0); Hematocrit 41.8 % (37.0-47.0); Hemoglobin 13.5 g/dL (12.2-16.2); Lymphocytes # 1.9 K/mm3 (0.7-4.5); Lymphocytes % 35.1 % (10-50); Mean Corpuscular HGB Conc 32.2 g/dL (31.8-35.4); Mean Corpuscular Hemoglobin 29.7 pg (27.0-31.2); Mean Corpuscular Volume 92.4 fl (81-99); Mean Platelet Volume 9.5 fl (7.4-10.4); Monocytes # 0.3 K/mm3 (0.1-1.0); Monocytes % 4.6 % (1.7-9.3); Neutrophils # 3.2 K/mm3 (1.8-7.8); Neutrophils % 58.2 % (37.0-80.0); Platelet Count 225 K/mm3 (142-424); Red Blood Count 4.53 M/mm3 (4.20-5.40); White Blood Count 5.5 K/mm3 (4.8-10.8)
[2022-12-06 06:11] LABS: Rubella Antibodies, IgG 2.96 index (Immune >0.99)
[2022-12-06 11:33] LABS: Rapid Plasma Reagin Ab Titer Non Reactive (NonRea<1:1)
[2022-12-14 04:42] LABS: HIV Screen 4th Generation wRfx Non Reactive
[2022-12-14 04:43] LABS: Hepatitis B Surface Antigen Negative; Hepatitis C Antibody <0.1
== END ==
PROVIDERS: PCP Nurse Practitioner Family; Visit Provider Nurse Practitioner Obstetrics & Gynecology
DX: Z34.90 Encounter for supervision of normal pregnancy, unspecified, unspecified trimester (principal)
CPT/HCPCS: 36415; 85025; 86593; 86703; 86762; 86850; 87340; 87380; G0432

== ENCOUNTER 2022-12-13 09:43 | Emergency (ER) | payer OTHER, SELFPAY ==
[2022-12-13 10:00] VITALS: BP 154/91; PULSE 99; RESP 20; TEMP 36.7; O2SAT 96; BMI 33.0
--- NOTE | 2022-12-13 10:14 | EXP.UTC ---
Discharge Plan Disposition Patient Disposition: Home, Self-Care Condition: Good Prescriptions Prescriptions: New azithromycin [Zithromax Z-Mario] 250 mg tablet See Rx Instructions .ROUTE .COMPLEX 5 Days Qty: 6 0RF Rx Instructions: For 250 mg dose pack: take 500 mg today (day 1), then 250 mg for 4 days (days 2-5) No Action valacyclovir 500 mg tablet 500 mg PO DAILY Label Comments: TAKE 1 TABLET BY MOUTH TWICE DAILY FOR 3 DAYS THEN DECREASE TO 1 TABLET DAILY UNTIL DELIVERY Classic 28 mg iron- 800 mcg tablet 1 tab PO DAILY Referrals Follow up/Referrals: Leonora Wade APRN [Primary Care Provider] - See instructions Activity Restrictions/Add. Instructions Additional Instructions/Restrictions: *Monitor Temp, Over the counter Motrin or Tylenol as directed/as needed Tylenol every 4 hours and Motrin every 6 hours (as long as your family doctor has told you that you can take it) for fever or pain. and straight to ER if unable to lower temp less than 101.0 after medication given *Warm salt water gargles may help to soothe the throat *Throat Lozenges? *Warm fluids like tea with honey may help to soothe the throat? *Sleep elevated *Humidifier/Vaporizer Your throat swab was sent for culture. Those results are typically sent to your primary care. Be sure to follow up in 2-3 days with your family doctor/primary care physician if no improvement so they can review those result and treat if necessary. If you don?t have a primary care doctor, I recommend you get one but in the mean time, you will have to return to a walk in clinic Follow up IMMEDIATELY for new or worsening symptoms or no Noticeable improvement over the next 48-72 hours. 911 for difficulty breathing or swallowing Clinical Impressions Clinical Impression: URI (upper respiratory infection) Instructions Patient Instructions: Sore Throat, DI for Sinusitis Discharge ED Provider: Mariana Nick [facility] [place] General Stated complaint: headache,stuffy nose Mode of Arrival: Ambulatory Source of Information: Patient Limitations: No Limitations Time Seen by Provider: 12/13/22 10:14 Description of Symptoms (Recalled from Triage Doc. by RN): PATIENT C/O HEADACHE, RUNNY NOSE AND SORE THROAT HEENT Symptoms (Recalled from RN notes): Yes Resp Symptoms (Recalled from RN notes): No Skin Symptoms (Recalled from RN notes): No MS Symptoms (Recalled from RN notes): No Functional Status (Recalled from RN notes): WNL History of Present Illness Provider Complaint: Patient states that she is 11wks OB States that she has been having sore throat, headache, and runny nose for several days then her daughter started with the same symptoms so she brought them in to get them checked Related Data Home Medications Medication Instructions Recorded Confirmed valacyclovir 500 mg tablet 500 mg PO DAILY . 11/26/22 12/13/22 vits no.126-ferrous fum 1 tab PO DAILY Supplement 12/13/22 12/13/22 28 mg iron-folic acid 800 mcg tablet (Classic ) Previous Rx's Medication Instructions Recorded azithromycin 250 mg tablet See Rx Instructions PO .COMPLEX 5 12/13/22 (Zithromax Z-Mario) days #6 tabs Allergies Allergy/AdvReac Type Severity Reaction Status Date / Time blueberry Allergy Verified 11/26/22 10:42 cat dander Allergy Verified 11/26/22 10:42 dog dander Allergy Verified 11/26/22 10:42 house dust Allergy Verified 11/26/22 10:42 codfish Allergy Uncoded 11/26/22 10:42 Worker's Comp Is this a Worker's Comp case?: No [facility] Disclaimer: The information contained in this section may have been updated after the patient was seen, as this information can be updated by other users. Medical History (Updated 12/13/22 @ 10:26 by Mariana Nick APRN) Anxiety Asthma Depression Hypertension Urinary tract infection Surgical History [place] [facility]
[2022-12-13 10:22] LABS: UTC Strep Screen (Rapid) Negative (Negative)
[2022-12-13 10:28] VITALS: BP 154/91; PULSE 99; RESP 20; TEMP 36.7; O2SAT 96
== END 2022-12-13 10:34 | disposition home or self-care (01) ==
PROVIDERS: Emergency Provider Nurse Practitioner; PCP Nurse Practitioner Family
DX: J06.9 Acute upper respiratory infection, unspecified (principal)
CPT/HCPCS: 87880; 99212; 99213; G0463

== ENCOUNTER 2023-01-17 06:04 | Emergency (ER) | payer OTHER, SELFPAY ==
[2023-01-17 06:06] VITALS: BP 147/97; PULSE 97; RESP 18; TEMP 36.8; O2SAT 97; BMI 31.3
--- NOTE | 2023-01-17 06:10 | XR_ITS ---
PROCEDURE INFORMATION: Exam: XR Chest Exam date and time: 01/17/2023 6:35 AM Age: 22 years old Clinical indication: Condition or disease; Lung condition and disease; Asthma; Additional info: Asthma exacerbation TECHNIQUE: Imaging protocol: Radiologic exam of the chest. Views: 1 view. COMPARISON: CR XR CHEST 2V 10/06/2021 12:37 AM FINDINGS: Lungs: No focal airspace disease. Pleural spaces: Unremarkable. No pleural effusion. No pneumothorax. Heart/Mediastinum: Cardiomediastinal silhouette is within normal limits. Bones/joints: Unremarkable. IMPRESSION: No acute cardiopulmonary abnormality.
[2023-01-17 06:20] VITALS: PULSE 104; PULSE 97
--- NOTE | 2023-01-17 06:34 | HMH.EDGENADL ---
Discharge Plan Disposition Patient Disposition: Home, Self-Care Condition: Fair Prescriptions Prescriptions: New albuterol sulfate 90 mcg/actuation HFA aerosol inhaler 2 inh inhalation Q6H PRN (Reason: shortness of breath or wheezing) Qty: 8.5 2RF No Action Classic 28 mg iron- 800 mcg tablet 1 tab PO DAILY Qty: 30 12RF promethazine 12.5 mg tablet 12.5 mg PO Q4-6H PRN (Reason: nausea and vomiting) Qty: 20 2RF valacyclovir 500 mg tablet 500 mg PO DAILY Label Comments: TAKE 1 TABLET BY MOUTH TWICE DAILY FOR 3 DAYS THEN DECREASE TO 1 TABLET DAILY UNTIL DELIVERY Referrals Follow up/Referrals: Leonora Wade APRN [Primary Care Provider] - See instructions Clinical Impressions Clinical Impression: Asthma exacerbation Instructions Patient Instructions: DI for Asthma -- Adult Discharge ED Provider: Damian Helton General Adult HPI General Chief complaint: Shortness of Breath/Dyspnea Stated complaint: asthma attack Time Seen by Provider: 01/17/23 06:05 Mode of Arrival: Ambulatory Source of Information: Patient Limitations: No Limitations Description of Symptoms (Recalled from ER Triage Doc. by RN): pt c/o wheezing x 3 hours History of Present Illness HPI narrative: Patient is a 22-year-old female with a past medical history of asthma who presents with concern for asthma exacerbation. She says that for the last 3 hours she has been having worsening shortness of breath and wheezing. She says that she tried to use her rescue inhaler but she could not find any of them. No recent illnesses. No fever. No sputum production. No chest pain. Related Data Home Medications Medication Instructions Recorded Confirmed valacyclovir 500 mg tablet 500 mg PO DAILY . 11/26/22 01/02/23 Previous Rx's Medication Instructions Recorded vits no.126-ferrous fum 1 tab PO DAILY Supplement #30 tabs 01/06/23 28 mg iron-folic acid 800 mcg tablet (Classic ) promethazine 12.5 mg tablet 12.5 mg PO Q4-6H PRN nausea and 01/06/23 vomiting #20 tabs albuterol sulfate 90 mcg/actuation 2 inh inhalation Q6H PRN shortness 01/17/23 aerosol inhaler of breath or wheezing #8.5 grams Allergies Allergy/AdvReac Type Severity Reaction Status Date / Time blueberry Allergy Verified 01/06/23 09:31 cat dander Allergy Verified 01/06/23 09:31 dog dander Allergy Verified 01/06/23 09:31 house dust Allergy Verified 01/06/23 09:31 codfish Allergy Uncoded 01/06/23 09:31 [facility] Disclaimer: The information contained in this section may have been updated after the patient was seen, as this information can be updated by other users. Medical History Anxiety Asthma Depression Hypertension Urinary tract infection Surgical History [place] teeth extracted Family History Other No significant family history Social History Smoking Status: Current every day smoker tobacco type: cigarettes packs per day: 1 second hand exposure: Yes alcohol intake: former substance use type: denies use current occupational status: employed Travel in the last 8 weeks: None housing: house ROS Obtained: Yes All systems reviewed & no additional complaints except as documented Physical Exam General General appearance: alert and in no apparent distress Head Head exam: atraumatic, normocephalic and normal inspection Eye Eye exam: Present normal appearance and PERRL ENT ENT exam: Present normal exam, mucous membranes moist and normal external ear exam Neck Neck exam: Present normal inspection and trachea midline Chest Chest inspection: Present normal inspection and symmetric chest wall rise Respiratory Respiratory exam: Present normal lung sounds bilaterally and whe
[2023-01-17 06:55] VITALS: BP 119/72; PULSE 91; RESP 15; TEMP 36.7; O2SAT 98
== END 2023-01-17 06:58 | disposition home or self-care (01) ==
PROVIDERS: Emergency Provider Student in an Organized Health Care Education/Training Program; PCP Nurse Practitioner Family
DX: J45.901 Unspecified asthma with (acute) exacerbation (principal); F41.8 Other specified anxiety disorders; I10 Essential (primary) hypertension; F17.210 Nicotine dependence, cigarettes, uncomplicated; Z87.440 Personal history of urinary (tract) infections
CPT/HCPCS: 71045; 99283; 99284

== ENCOUNTER 2023-01-25 15:27 | Emergency (ER) | payer OTHER, SELFPAY ==
[2023-01-25 15:38] LABS: Microscopic, Urine URINE MICROSCOPIC (MICROSCOPIC)
[2023-01-25 15:41] VITALS: BP 130/70; PULSE 93; RESP 17; TEMP 36.5; O2SAT 99; BMI 32.1
[2023-01-25 15:52] LABS: Appearance,Urine CLEAR (Clear); Bilirubin,Urine Negative (Negative); Blood, Urine Negative (Negative); Color,Urine YELLOW (Yellow); Glucose,Urine (UA) Negative (Negative); Ketones,Urine Negative (Negative); Leukocyte Esterase,Urine 1+ (Negative); Nitrate,Urine Negative (Negative); Protein,Urine Negative (Negative); Specific Gravity, Urine <= 1.005 (1.005-1.030); Urobilinogen,Urine 0.2 EU/dl (0.2)
--- NOTE | 2023-01-25 15:55 | HMH.EDGENADL ---
Discharge Plan Disposition Patient Disposition: Home, Self-Care Condition: Good Prescriptions Prescriptions: New nitrofurantoin monohyd/m-cryst [Macrobid] 100 mg capsule 100 mg PO BID 5 Days Qty: 10 0RF Rx Instructions: must administer with a meal/food No Action Classic 28 mg iron- 800 mcg tablet 1 tab PO DAILY Qty: 30 12RF promethazine 12.5 mg tablet 12.5 mg PO Q4-6H PRN (Reason: nausea and vomiting) Qty: 20 2RF valacyclovir 500 mg tablet 500 mg PO DAILY Label Comments: TAKE 1 TABLET BY MOUTH TWICE DAILY FOR 3 DAYS THEN DECREASE TO 1 TABLET DAILY UNTIL DELIVERY albuterol sulfate 90 mcg/actuation HFA aerosol inhaler 2 inh inhalation Q6H PRN (Reason: shortness of breath or wheezing) Qty: 8.5 2RF Referrals Follow up/Referrals: Leonora Wade APRN [Primary Care Provider] - See instructions Activity Restrictions/Add. Instructions Additional Instructions/Restrictions: Follow-up with your wound care technician in order to have repeat urinalysis done in 1 to 2 weeks. If you have any other concerning signs or symptoms, return to your primary care provider or the ER for further evaluation. Clinical Impressions Clinical Impression: Cystitis Instructions Patient Instructions: DI for Acute Abdominal Pain Discharge ED Provider: Manny Shankar General Adult HPI General Chief complaint: Abdominal Pain Stated complaint: 17 weeks prego with cramping,Sore throat Time Seen by Provider: 01/25/23 15:31 Mode of Arrival: Ambulatory Source of Information: Patient Limitations: No Limitations Description of Symptoms (Recalled from ER Triage Doc. by RN): pt comes in with c/o sore irritated throat ongoing for 2 days. pt also reports cramping in right sided and lower abdomen. pt is 17 weeks . no bleeding noted. cramping began last night. History of Present Illness HPI narrative: This is a 22-year-old female who is currently 17 weeks presenting with sore throat, cough. Patient states that sore throat started 2 days prior to arrival and cough started 1 day prior to arrival. She believes she has strep throat based on past history of symptoms and how she feels now. Denies overt fevers, chills, nausea, vomiting, but has had sore throat that does not radiate. Denies chest pain, shortness of breath, difficulty swallowing, difficulty breathing, pain with range of motion of neck, voice changes. She has had nonproductive cough. Nothing in particular makes it better or worse and she has kids that have similar symptoms and have had symptoms for days. Denies abdominal pain, but has had intermittent cramping that is bilateral lower quadrants. Denies vaginal discharge or bleeding, decreased movements, dysuria, hematuria, or other concerns. Related Data Home Medications Medication Instructions Recorded Confirmed valacyclovir 500 mg tablet 500 mg PO DAILY . 11/26/22 01/02/23 Previous Rx's Medication Instructions Recorded vits no.126-ferrous fum 1 tab PO DAILY Supplement #30 tabs 01/06/23 28 mg iron-folic acid 800 mcg tablet (Classic ) promethazine 12.5 mg tablet 12.5 mg PO Q4-6H PRN nausea and 01/06/23 vomiting #20 tabs albuterol sulfate 90 mcg/actuation 2 inh inhalation Q6H PRN shortness 01/17/23 aerosol inhaler of breath or wheezing #8.5 grams nitrofurantoin 100 mg PO BID 5 days #10 caps 01/25/23 monohydrate/macrocrystals 100 mg capsule (Macrobid) Allergies Allergy/AdvReac Type Severity Reaction Status Date / Time blueberry Allergy Verified 01/06/23 09:31 cat dander Allergy Verified 01/06/23 09:31 dog dander Allergy Verified 01/06/23 09:31 house dust Allergy Verified 01/06/23 09:31 codfish Allergy Uncoded 01/06/23 09:31 [facility] Disclaimer: The information contained in this section may have been updated after the patient was seen, as this information can be updated by other users. Medical History (Reviewed 01/06/23 @ 09:32 by
[2023-01-25 16:18] LABS: Bacteria,Urine Trace /lpf; Squamous Epithelial Cell,Urine Occasional #/hpf (0-5); WBC,Urine Occasional #/hpf (0-3)
[2023-01-25 16:20] LABS: Strep Scrn Group A (Rapid) Negative (Negative)
--- NOTE | 2023-01-25 16:29 | PC.NURSE ---
roya and shakeel rns at bedside
--- NOTE | 2023-01-25 16:45 | PC.NURSE ---
heart rate 156
[2023-01-25 17:12] VITALS: BP 145/82; PULSE 83; RESP 16; TEMP 36.6
== END 2023-01-25 17:15 | disposition home or self-care (01) ==
PROVIDERS: Emergency Provider Emergency Medicine; PCP Nurse Practitioner Family
DX: O23.42 Unspecified infection of urinary tract in pregnancy, second trimester (principal); N30.00 Acute cystitis without hematuria; Z3A.17 17 weeks gestation of pregnancy; R07.0 Pain in throat
CPT/HCPCS: 81001; 87086; 87430; 99284

== ENCOUNTER → 2023-02-18 09:50 | Outpatient (CLI) | payer OTHER, SELFPAY ==
--- NOTE | 2023-02-18 09:51 | US_ITS ---
FINAL REPORT CLINICAL HISTORY: 20 week anatomy scan please use anatomy template FINDINGS: There is a single live intrauterine gestation. Presentation is cephalic. The cervix is closed and measures 4.7 cm. Placenta is anterior and grade 1. movement is noted. Cardiac activity is confirmed at 153 beats per minute. Three-vessel cord with marginal cord insertion. Four-chamber heart is noted. brain and ventricles are unremarkable. Chest and diaphragm are unremarkable. ABDOMEN: Both kidneys are unremarkable. Stomach is unremarkable. SPINE: No anomalies identified. Both arms and legs noted. AMNIOTIC FLUID: Appropriate amount. MEASUREMENTS: ULTRASOUND AGE: 21 weeks 0 days. GESTATION AGE: 20 weeks 4 days. ESTIMATED WEIGHT: 398 g GROWTH PERCENTILE: 73% BPD: 5 cm consistent with 21 weeks 2 days. OFD: 6.2 cm consistent with 21 weeks 0 days. HC: 17.8 cm consistent with 20 weeks 2 days. AC: 16.4 cm consistent with 21 weeks 4 days. FL: 3.4 cm consistent with 20 weeks 6 days. CEREBELLUM: 2.2 cm consistent with 22 weeks 1 days. HUMERUS: 3.3 cm consistent with 21 weeks 1 days. HC/AC: 1.09 CI: 81% FL/BPD: 68% FL/AC: 21% IMPRESSION: Single living IUP with an ultrasound age of 21 weeks 0 days. Marginal cord insertion. Additional follow-up ultrasound may be helpful. Reviewed, Interpreted and Dictated by Kendell Moreno III, MD Transcribed by Hai Agee Authenticated and . [facility]
== END ==
PROVIDERS: PCP Nurse Practitioner Family; Visit Provider Nurse Practitioner Obstetrics & Gynecology
DX: Z34.90 Encounter for supervision of normal pregnancy, unspecified, unspecified trimester (principal); Z3A.20 20 weeks gestation of pregnancy
CPT/HCPCS: 76811

== ENCOUNTER 2023-03-31 21:25 | Emergency (ER) | payer OTHER, SELFPAY ==
[2023-03-31 21:25] VITALS: BP 156/99; PULSE 104; RESP 18; TEMP 36.8; O2SAT 96; BMI 35.6
[2023-03-31 21:51] LABS: Coronavirus 19, PCR Not Detected (NotDetected); Influenza A, PCR Not Detected (NotDetected); Influenza B, PCR Not Detected (NotDetected)
--- NOTE | 2023-03-31 22:09 | PC.NURSE ---
Dr. Madrigal at
--- NOTE | 2023-03-31 22:14 | HMH.EDURI ---
Discharge Plan Disposition Patient Disposition: Home, Self-Care Chief Complaint: Upper Respiratory Infection Prescriptions Prescriptions: No Action Classic 28 mg iron- 800 mcg tablet 1 tab PO DAILY Qty: 30 12RF promethazine 12.5 mg tablet 12.5 mg PO Q4-6H PRN (Reason: nausea and vomiting) Qty: 20 2RF magnesium oxide 500 mg capsule 500 mg PO DAILY ferrous sulfate 325 mg (65 mg iron) tablet,delayed release (DR/EC) 325 mg PO DAILY Qty: 30 11RF valacyclovir 500 mg tablet 500 mg PO DAILY Label Comments: TAKE 1 TABLET BY MOUTH TWICE DAILY FOR 3 DAYS THEN DECREASE TO 1 TABLET DAILY UNTIL DELIVERY albuterol sulfate 90 mcg/actuation HFA aerosol inhaler 2 inh inhalation Q6H PRN (Reason: shortness of breath or wheezing) Qty: 8.5 2RF Referrals Follow up/Referrals: Leonora Wade APRN [Primary Care Provider] - See instructions Pawan Nieves MD [Staff Physician] - See instructions Clinical Impressions Clinical Impression: Upper respiratory disease, Instructions Patient Instructions: DI for Viral Upper Respiratory Infection -- Adult Discharge ED Provider: Rohan (ED)Luis URI/Sore Throat HPI General Chief Complaint: Upper Respiratory Infection Stated Complaint: Cough,Congestion,sore throa, Runny nose Time Seen by Provider: 03/31/23 22:15 Mode of Arrival: Ambulatory Source of Information: Patient and Medical Record Limitations: No Limitations Description of Symptoms (Recalled from ER Triage Doc. by RN): pt to ED with cough, runny nose and congestion x 3 days. 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 11/26/22 03/03/23 magnesium oxide 500 mg capsule 500 mg PO DAILY 02/03/23 03/03/23 Previous Rx's Medication Instructions Recorded vits no.126-ferrous fum 1 tab PO DAILY Supplement #30 tabs 01/06/23 28 mg iron-folic acid 800 mcg tablet (Classic ) promethazine 12.5 mg tablet 12.5 mg PO Q4-6H PRN nausea and 01/06/23 vomiting #20 tabs albuterol sulfate 90 mcg/actuation 2 inh inhalation Q6H PRN shortness 01/17/23 aerosol inhaler of breath or wheezing #8.5 grams ferrous sulfate 325 mg (65 mg 325 mg PO DAILY #30 tabs 02/03/23 iron) tablet,delayed release Allergies Allergy/AdvReac Type Severity Reaction Status Date / Time blueberry Allergy Verified 03/03/23 15:16 cat dander Allergy Verified 03/03/23 15:16 dog dander Allergy Verified 03/03/23 15:16 house dust Allergy Verified 03/03/23 15:16 codfish Allergy Uncoded 03/03/23 15:16 [facility]SH [facility] Disclaimer: The information contained in this section may have been updated after the patient was seen, as this information can be updated by other users. Medical History Anxiety Asthma Depression Hypertension Urinary tract infection Surgical History [place] teeth extracted Family History Other No significant family history Social History Smoking Status: Never smoker second hand exposure: Yes alcohol intake: former substance use type: denies use current occupational status: employed Travel in the last 8 weeks: None housing: house ROS Obtained: Yes All systems reviewed & no additional complaints except as documented Physical Exam General General appearance: alert Head Head exam: normocephalic Eye Eye exam: Present PERRL and EOMI ENT ENT exam: Present mucous m
[2023-03-31 23:33] VITALS: BP 135/88; PULSE 92; RESP 18; TEMP 36.8; O2SAT 98
== END 2023-03-31 23:35 | disposition home or self-care (01) ==
PROVIDERS: Emergency Provider Emergency Medicine; PCP Nurse Practitioner Family
DX: O99.512 Diseases of the respiratory system complicating pregnancy, second trimester (principal); J06.9 Acute upper respiratory infection, unspecified; R05.9 Cough, unspecified; Z3A.21 21 weeks gestation of pregnancy
CPT/HCPCS: 87635; 87636; 99282; 99283; C9803; U0003; U0005

== ENCOUNTER → 2023-04-12 08:37 | Outpatient (CLI) | payer OTHER, SELFPAY ==
[2023-04-12 08:59] LABS: Basophils % 0.3 % (0.1-2.0); Eosinophils # 0.2 K/mm3 (0.0-0.4); Eosinophils % 2.4 % (0.1-12.0); Hematocrit 35.4 % (37.0-47.0); Hemoglobin 12.3 g/dL (12.2-16.2); Lymphocytes # 2.1 K/mm3 (0.7-4.5); Lymphocytes % 25.5 % (10-50); Mean Corpuscular HGB Conc 34.6 g/dL (31.8-35.4); Mean Corpuscular Hemoglobin 32.1 pg (27.0-31.2); Mean Corpuscular Volume 92.6 fl (81-99); Mean Platelet Volume 9.6 fl (7.4-10.4); Monocytes # 0.4 K/mm3 (0.1-1.0); Monocytes % 4.4 % (1.7-9.3); Neutrophils # 5.5 K/mm3 (1.8-7.8); Neutrophils % 67.4 % (37.0-80.0); Platelet Count 190 K/mm3 (142-424); Red Blood Count 3.82 M/mm3 (4.20-5.40); Red Cell Distribution Width 13.7 % (11.5-17.5); White Blood Count 8.1 K/mm3 (4.8-10.8)
[2023-04-12 09:11] LABS: Glucose,Fasting 80 mg/dl (74-100)
[2023-04-12 10:23] LABS: Glucose 1 Hour 112 mg/dL (74-100)
== END ==
PROVIDERS: PCP Nurse Practitioner Family; Visit Provider Nurse Practitioner Obstetrics & Gynecology
DX: Z34.90 Encounter for supervision of normal pregnancy, unspecified, unspecified trimester (principal); Z3A.29 29 weeks gestation of pregnancy
CPT/HCPCS: 36415; 82951; 85025

== ENCOUNTER → 2023-05-03 08:15 | Outpatient (CLI) | payer OTHER, SELFPAY ==
[2023-05-03 08:41] LABS: Basophils % 0.3 % (0.1-2.0); Eosinophils # 0.2 K/mm3 (0.0-0.4); Eosinophils % 2.7 % (0.1-12.0); Hematocrit 34.9 % (37.0-47.0); Hemoglobin 11.9 g/dL (12.2-16.2); Lymphocytes # 1.8 K/mm3 (0.7-4.5); Lymphocytes % 22.6 % (10-50); Mean Corpuscular HGB Conc 34.2 g/dL (31.8-35.4); Mean Corpuscular Volume 90.8 fl (81-99); Mean Platelet Volume 9.7 fl (7.4-10.4); Monocytes # 0.3 K/mm3 (0.1-1.0); Monocytes % 4.2 % (1.7-9.3); Neutrophils # 5.6 K/mm3 (1.8-7.8); Neutrophils % 70.3 % (37.0-80.0); Platelet Count 175 K/mm3 (142-424); Red Blood Count 3.85 M/mm3 (4.20-5.40); Red Cell Distribution Width 13.1 % (11.5-17.5); White Blood Count 7.9 K/mm3 (4.8-10.8)
[2023-05-03 08:52] LABS: Activated Partial Thrombo Time 25.6 seconds (22.8-30.6); Fibrinogen 392 mg/dL (229.9-363.5); INR 0.94 (0.9-1.1); Prothrombin Time 10.2 seconds (10.1-12.5)
[2023-05-03 08:56] LABS: D-Dimer 1.12 ug/mL (0.0-0.5)
[2023-05-03 09:11] LABS: Alanine Aminotransferase 19 U/L (12-78); Anion Gap 14.5 mEq/L (5-15); Aspartate Amino Transferase 24 U/L (14-36); Blood Urea Nitrogen 3 mg/dl (7-17); Calcium 8.7 mg/dl (8.4-10.2); Carbon Dioxide 22 mmol/L (22.0-30.0); Chloride 105 mmol/L (98-107); Estimated Glomerular Filt Rate 194 ml/min (>60); GFR (African American) 235 ML/MIN (>60); Glucose 90 mg/dl (74-100); Potassium 3.5 mmoL/L (3.5-5.1); Sodium 138 mmol/L (136-145); Uric Acid 4.8 mg/dl (2.5-6.2)
== END ==
PROVIDERS: PCP Nurse Practitioner Family; Visit Provider Nurse Practitioner Obstetrics & Gynecology
DX: Z34.93 Encounter for supervision of normal pregnancy, unspecified, third trimester (principal); Z3A.31 31 weeks gestation of pregnancy
CPT/HCPCS: 36415; 80048; 84450; 84460; 84550; 85025; 85378; 85384; 85610; 85730

== ENCOUNTER → 2023-05-05 06:45 | Outpatient (CLI) | payer OTHER, SELFPAY ==
[2023-05-06 07:19] LABS: Total Protein 24 Hour,Urine 496 mg/24 hr (40-90); Total Volume,Urine 2480 mL (600-1600)
== END ==
PROVIDERS: PCP Nurse Practitioner Family; Visit Provider Nurse Practitioner Obstetrics & Gynecology
DX: O16.3 Unspecified maternal hypertension, third trimester (principal); Z3A.31 31 weeks gestation of pregnancy
CPT/HCPCS: 84155

== ENCOUNTER 2023-05-08 16:41 | Outpatient (CLI) | payer OTHER, SELFPAY ==
[2023-05-08 17:03] VITALS: BMI 37.0
[2023-05-08 17:10] LABS: Microscopic, Urine URINE MICROSCOPIC (MICROSCOPIC)
[2023-05-08 17:22] LABS: Appearance,Urine SL CLOUDY (Clear); Bilirubin,Urine Negative (Negative); Blood, Urine Negative (Negative); Color,Urine YELLOW (Yellow); Glucose,Urine (UA) Negative (Negative); Ketones,Urine Negative (Negative); Leukocyte Esterase,Urine TRACE (Negative); Nitrate,Urine Negative (Negative); Protein,Urine TRACE (Negative); Urobilinogen,Urine 0.2 EU/dl (0.2)
[2023-05-08 17:34] LABS: Amphetamine/Metha Screen,Urine Negative ng/ml (<1000); Barbiturates Screen,Urine Negative ng/ml (<200)
[2023-05-08 17:35] LABS: Basophils % 0.3 % (0.1-2.0); Eosinophils # 0.1 K/mm3 (0.0-0.4); Eosinophils % 1.3 % (0.1-12.0); Hematocrit 35.7 % (37.0-47.0); Hemoglobin 11.8 g/dL (12.2-16.2); Lymphocytes # 1.2 K/mm3 (0.7-4.5); Mean Corpuscular HGB Conc 33.1 g/dL (31.8-35.4); Mean Corpuscular Hemoglobin 30.7 pg (27.0-31.2); Mean Platelet Volume 9.6 fl (7.4-10.4); Monocytes # 0.5 K/mm3 (0.1-1.0); Monocytes % 6.6 % (1.7-9.3); Neutrophils # 5.7 K/mm3 (1.8-7.8); Neutrophils % 75.8 % (37.0-80.0); Platelet Count 169 K/mm3 (142-424); Red Blood Count 3.84 M/mm3 (4.20-5.40); Red Cell Distribution Width 12.9 % (11.5-17.5); White Blood Count 7.5 K/mm3 (4.8-10.8)
[2023-05-08 17:35] LABS: Benzodiazepines Screen,Urine Negative ng/ml (<200)
[2023-05-08 17:36] LABS: Cannabinoid Screen,Urine Negative ng/ml (<50); Cocaine Screen,Urine Negative ng/ml (<300)
[2023-05-08 17:37] LABS: Methadone Screen,Urine Negative ng/ml (<300)
[2023-05-08 17:38] LABS: Opiate Screen,Urine Negative ng/ml (<300); Phencyclidine Screen,Urine Negative ng/ml (<25)
[2023-05-08 17:55] LABS: Activated Partial Thrombo Time 27.1 seconds (22.8-30.6); Fibrinogen 430 mg/dL (229.9-363.5); INR 0.95 (0.9-1.1); Prothrombin Time 10.3 seconds (10.1-12.5)
[2023-05-08 17:56] VITALS: BP 117/75; PULSE 107; RESP 18; TEMP 37.2; O2SAT 96; BMI 37.0
[2023-05-08 17:59] LABS: RBC,Urine Occasional #/hpf (0-3)
[2023-05-08 18:08] LABS: Alanine Aminotransferase 18 U/L (12-78); Anion Gap 16.2 mEq/L (5-15); Aspartate Amino Transferase 26 U/L (14-36); Blood Urea Nitrogen 3 mg/dl (7-17); Calcium 8.3 mg/dl (8.4-10.2); Carbon Dioxide 22 mmol/L (22.0-30.0); Chloride 103 mmol/L (98-107); Creatinine Clearance Estimated 365 mL/min (50-200); Estimated Glomerular Filt Rate 194 ml/min (>60); GFR (African American) 235 ML/MIN (>60); Glucose 93 mg/dl (74-100); Potassium 3.2 mmoL/L (3.5-5.1); Sodium 138 mmol/L (136-145); Uric Acid 4.2 mg/dl (2.5-6.2)
[2023-05-08 18:13] LABS: D-Dimer 1.55 ug/mL (0.0-0.5)
[2023-05-08 18:29] LABS: Uric Acid 4.1 mg/dl (2.5-6.2)
== END 2023-05-08 18:35 | disposition home or self-care (01) ==
LOC: OBOUT 16:44 → OB 16:45
PROVIDERS: PCP Nurse Practitioner Family; Visit Provider Obstetrics & Gynecology
DX: O26.893 Other specified pregnancy related conditions, third trimester (principal); Z3A.32 32 weeks gestation of pregnancy
CPT/HCPCS: 59025; 80048; 80305; 81001; 84450; 84460; 84550; 85025; 85378; 85384; 85610; 85730; G0463

== ENCOUNTER → 2023-05-12 07:47 | Outpatient (CLI) | payer OTHER, SELFPAY ==
[2023-05-12 08:15] LABS: Basophils % 0.3 % (0.1-2.0); Eosinophils # 0.2 K/mm3 (0.0-0.4); Hematocrit 35.9 % (37.0-47.0); Hemoglobin 11.8 g/dL (12.2-16.2); Lymphocytes # 1.7 K/mm3 (0.7-4.5); Lymphocytes % 23.8 % (10-50); Mean Corpuscular HGB Conc 32.8 g/dL (31.8-35.4); Mean Corpuscular Hemoglobin 30.4 pg (27.0-31.2); Mean Corpuscular Volume 92.7 fl (81-99); Mean Platelet Volume 10.1 fl (7.4-10.4); Monocytes # 0.3 K/mm3 (0.1-1.0); Neutrophils # 5.1 K/mm3 (1.8-7.8); Neutrophils % 69.8 % (37.0-80.0); Platelet Count 196 K/mm3 (142-424); Red Blood Count 3.87 M/mm3 (4.20-5.40); Red Cell Distribution Width 12.8 % (11.5-17.5); White Blood Count 7.3 K/mm3 (4.8-10.8)
[2023-05-12 08:40] LABS: Alanine Aminotransferase 26 U/L (12-78); Albumin Level 3.4 g/dl (3.5-5.0); Albumin/Globulin Ratio 1.1 (1.1-1.8); Alkaline Phosphatase 91 U/L (38-126); Anion Gap 13.3 mEq/L (5-15); Aspartate Amino Transferase 31 U/L (14-36); Bilirubin,Total 0.2 mg/dl (0.2-1.3); Blood Urea Nitrogen 3 mg/dl (7-17); Calcium 8.9 mg/dl (8.4-10.2); Carbon Dioxide 23 mmol/L (22.0-30.0); Chloride 104 mmol/L (98-107); Estimated Glomerular Filt Rate 194 ml/min (>60); GFR (African American) 235 ML/MIN (>60); Glucose 101 mg/dl (74-100); Potassium 3.3 mmoL/L (3.5-5.1); Sodium 137 mmol/L (136-145); Total Protein,Serum 6.4 g/dl (6.3-8.2); Uric Acid 4.8 mg/dl (2.5-6.2)
[2023-05-15 16:16] LABS: Albumin, U 30.2 % (.); Alpha-1-Globulin, U 4.9 % (.); Alpha-2-Globulin, U 12.6 % (.); Beta Globulin, U 34.9 % (.); Gamma Globulin, U 17.5 % (.); M-Spike, % Not Observed % (Not Observed); Prot,24hr calculated 235 mg/24 hr (30-150); Protein,Total,Urine 7.7 mg/dL (Not Estab.)
== END ==
PROVIDERS: Physician Assistant; PCP Nurse Practitioner Family; Visit Provider Obstetrics & Gynecology
DX: Z34.93 Encounter for supervision of normal pregnancy, unspecified, third trimester (principal); Z3A.32 32 weeks gestation of pregnancy
CPT/HCPCS: 36415; 80053; 84156; 84166; 84550; 85025

== ENCOUNTER 2023-05-12 11:09 | Outpatient (CLI) | payer OTHER, SELFPAY ==
[2023-05-12 11:18] VITALS: BMI 37.0
[2023-05-12 11:35] VITALS: BMI 37.0
== END 2023-05-12 12:10 | disposition home or self-care (01) ==
LOC: OBOUT 11:14 → OB 11:16
PROVIDERS: PCP Nurse Practitioner Family; Visit Provider Obstetrics & Gynecology
DX: O26.893 Other specified pregnancy related conditions, third trimester (principal); Z3A.32 32 weeks gestation of pregnancy
CPT/HCPCS: 59025; G0463

== ENCOUNTER 2023-05-15 17:16 | Outpatient (CLI) | payer OTHER, SELFPAY ==
[2023-05-15 17:40] VITALS: BP 130/89; PULSE 104; RESP 20; TEMP 36.7; O2SAT 96; BMI 37.0
[2023-05-15 17:46] VITALS: BMI 37.0
[2023-05-15 17:54] LABS: Microscopic, Urine URINE MICROSCOPIC (MICROSCOPIC)
[2023-05-15 17:57] LABS: Appearance,Urine CLEAR (Clear); Bilirubin,Urine Negative (Negative); Blood, Urine Negative (Negative); Color,Urine YELLOW (Yellow); Glucose,Urine (UA) Negative (Negative); Ketones,Urine Negative (Negative); Leukocyte Esterase,Urine Negative (Negative); Nitrate,Urine Negative (Negative); PH,Urine 6.5 (5.0-8.5); Protein,Urine Negative (Negative); Specific Gravity, Urine 1.015 (1.005-1.030); Urobilinogen,Urine 0.2 EU/dl (0.2)
[2023-05-15 18:00] VITALS: BP 124/84
[2023-05-15 18:09] LABS: Amphetamine/Metha Screen,Urine Negative ng/ml (<1000); Bacteria,Urine Trace /lpf; Benzodiazepines Screen,Urine Negative ng/ml (<200)
[2023-05-15 18:10] LABS: Barbiturates Screen,Urine Negative ng/ml (<200)
[2023-05-15 18:11] LABS: Cannabinoid Screen,Urine Negative ng/ml (<50); Cocaine Screen,Urine Negative ng/ml (<300)
[2023-05-15 18:12] LABS: Methadone Screen,Urine Negative ng/ml (<300)
[2023-05-15 18:13] LABS: Opiate Screen,Urine Negative ng/ml (<300); Phencyclidine Screen,Urine Negative ng/ml (<25)
[2023-05-15 18:22] LABS: Basophils % 0.3 % (0.1-2.0); Eosinophils # 0.3 K/mm3 (0.0-0.4); Eosinophils % 2.6 % (0.1-12.0); Hematocrit 34.4 % (37.0-47.0); Hemoglobin 11.6 g/dL (12.2-16.2); Lymphocytes # 2.5 K/mm3 (0.7-4.5); Lymphocytes % 24.2 % (10-50); Mean Corpuscular HGB Conc 33.8 g/dL (31.8-35.4); Mean Corpuscular Hemoglobin 30.9 pg (27.0-31.2); Mean Corpuscular Volume 91.4 fl (81-99); Mean Platelet Volume 10.1 fl (7.4-10.4); Monocytes # 0.4 K/mm3 (0.1-1.0); Monocytes % 4.1 % (1.7-9.3); Neutrophils # 7.1 K/mm3 (1.8-7.8); Neutrophils % 68.9 % (37.0-80.0); Platelet Count 204 K/mm3 (142-424); Red Blood Count 3.76 M/mm3 (4.20-5.40); Red Cell Distribution Width 12.7 % (11.5-17.5); White Blood Count 10.3 K/mm3 (4.8-10.8)
[2023-05-15 18:30] VITALS: BP 135/89
[2023-05-15 18:33] LABS: Alanine Aminotransferase 16 U/L (12-78); Anion Gap 12.1 mEq/L (5-15); Aspartate Amino Transferase 27 U/L (14-36); Blood Urea Nitrogen 4 mg/dl (7-17); Calcium 8.4 mg/dl (8.4-10.2); Carbon Dioxide 25 mmol/L (22.0-30.0); Chloride 103 mmol/L (98-107); Creatinine Clearance Estimated 365 mL/min (50-200); Estimated Glomerular Filt Rate 194 ml/min (>60); GFR (African American) 235 ML/MIN (>60); Glucose 81 mg/dl (74-100); Potassium 3.1 mmoL/L (3.5-5.1); Sodium 137 mmol/L (136-145); Uric Acid 4.8 mg/dl (2.5-6.2)
[2023-05-15 18:41] LABS: D-Dimer 1.15 ug/mL (0.0-0.5)
[2023-05-15 18:50] LABS: Activated Partial Thrombo Time 25.8 seconds (22.8-30.6); Fibrinogen 403 mg/dL (229.9-363.5); INR 0.95 (0.9-1.1); Prothrombin Time 10.3 seconds (10.1-12.5)
[2023-05-15 19:00] VITALS: BP 132/82
== END 2023-05-15 19:20 | disposition home or self-care (01) ==
LOC: OBOUT 17:18 → OB 17:20
PROVIDERS: PCP Nurse Practitioner Family; Visit Provider Obstetrics & Gynecology
DX: O13.3 Gestational [pregnancy-induced] hypertension without significant proteinuria, third trimester (principal); Z3A.33 33 weeks gestation of pregnancy; R51.9 Headache, unspecified
CPT/HCPCS: 36415; 80048; 80305; 81001; 84450; 84460; 84550; 85025; 85378; 85384; 85610; 85730

== ENCOUNTER → 2023-05-29 08:37 | Outpatient (CLI) | payer OTHER, SELFPAY ==
--- NOTE | 2023-05-29 08:37 | US_ITS ---
PROCEDURE: US OB BIOPHYSICAL PROFILE CLINICAL INDICATION: lga and hypertension COMPARISON: FINDINGS: From her established due date she is 35weeks 0 days. The following parameters are obtained: Viable fetus in the cephalic presentation with an anterior placenta grade 1. Average ultrasound age is 35weeks 1day. Estimated due date by ultrasound is 07/02/2023. Estimated weight is 5lb 7.08oz. 35Percentile. heart rate: 155bpm bpm. BPD: 36weeks 2days OFD: 36weeks 2days HC: 35 weeks 4 days AC: 34 weeks 3 days FL: 34 weeks 3 days HC/AC: 1.04 Cephalic index: 0.79 FL/BPD: 0.76 FL/AC: 0.22 Amniotic fluid index: 7.73cm Qualitative AFV: 2 breathing movements: 0 Gross body movements: 2 Tone: 2 Biophysical profile score: 6 No obvious anomalies evident.Kidneys, three-vessel cord appear normal. IMPRESSION: 1. Viable fetus in the cephalic presentation with an anterior placenta grade 1. 2. The fluid is low with an amniotic fluid index of 7.73 cm. 3. Biophysical profile 6/8. Decrease breathing movement. breathing movement seen for brief period of time. 4. Good interval growth, currently 35 percentile. 5. Physician was notified of the decreased breathing movement and sent the office for a nonstress test. Dictated by: Pawan Nieves MD 05/30/2023 08:35 Pawan Nieves MD in OV 05/30/2023 08:35
== END ==
PROVIDERS: PCP Nurse Practitioner Family; Visit Provider Nurse Practitioner Obstetrics & Gynecology
DX: O16.3 Unspecified maternal hypertension, third trimester (principal); O36.63X0 Maternal care for excessive fetal growth, third trimester, not applicable or unspecified; Z3A.35 35 weeks gestation of pregnancy
CPT/HCPCS: 76816; 76819; 86403

== ENCOUNTER → 2023-06-02 15:50 | Outpatient (CLI) | payer OTHER, SELFPAY ==
[2023-06-02 16:18] LABS: Basophils % 0.2 % (0.1-2.0); Eosinophils # 0.3 K/mm3 (0.0-0.4); Eosinophils % 2.9 % (0.1-12.0); Hematocrit 35.1 % (37.0-47.0); Hemoglobin 11.7 g/dL (12.2-16.2); Lymphocytes % 21.2 % (10-50); Mean Corpuscular HGB Conc 33.4 g/dL (31.8-35.4); Mean Corpuscular Hemoglobin 30.9 pg (27.0-31.2); Mean Corpuscular Volume 92.6 fl (81-99); Monocytes # 0.4 K/mm3 (0.1-1.0); Monocytes % 4.5 % (1.7-9.3); Neutrophils # 6.6 K/mm3 (1.8-7.8); Platelet Count 184 K/mm3 (142-424); Red Blood Count 3.79 M/mm3 (4.20-5.40); Red Cell Distribution Width 13.1 % (11.5-17.5); White Blood Count 9.3 K/mm3 (4.8-10.8)
[2023-06-02 16:33] LABS: Activated Partial Thrombo Time 25.4 seconds (22.8-30.6); Fibrinogen 425 mg/dL (229.9-363.5); INR 0.93 (0.9-1.1); Prothrombin Time 10.1 seconds (10.1-12.5)
[2023-06-02 18:42] LABS: Alanine Aminotransferase 18 U/L (12-78); Anion Gap 10.2 mEq/L (5-15); Blood Urea Nitrogen 4 mg/dl (7-17); Calcium 9.3 mg/dl (8.4-10.2); Carbon Dioxide 23 mmol/L (22.0-30.0); Chloride 107 mmol/L (98-107); D-Dimer 1.05 ug/mL (0.0-0.5); Estimated Glomerular Filt Rate 150 ml/min (>60); GFR (African American) 182 ML/MIN (>60); Glucose 98 mg/dl (74-100); Potassium 3.2 mmoL/L (3.5-5.1); Sodium 137 mmol/L (136-145); Uric Acid 5.2 mg/dl (2.5-6.2)
[2023-06-02 20:54] LABS: Aspartate Amino Transferase 24 U/L (14-36)
== END ==
PROVIDERS: PCP Nurse Practitioner Family; Visit Provider Nurse Practitioner Obstetrics & Gynecology
DX: Z34.93 Encounter for supervision of normal pregnancy, unspecified, third trimester (principal); Z3A.36 36 weeks gestation of pregnancy
CPT/HCPCS: 36415; 80048; 84450; 84460; 84550; 85025; 85378; 85384; 85610; 85730

== ENCOUNTER 2023-06-15 15:58 | Inpatient (IN) | payer OTHER, SELFPAY ==
[2023-06-15 16:04] VITALS: BP 147/83; PULSE 111; RESP 18; TEMP 37.4; O2SAT 96; BMI 38.2
[2023-06-15 16:14] VITALS: BMI 38.2
[2023-06-15 17:24] LABS: Basophils % 0.3 % (0.1-2.0); Eosinophils # 0.2 K/mm3 (0.0-0.4); Hematocrit 35.9 % (37.0-47.0); Lymphocytes # 2.3 K/mm3 (0.7-4.5); Lymphocytes % 19.7 % (10-50); Mean Corpuscular HGB Conc 33.4 g/dL (31.8-35.4); Mean Corpuscular Hemoglobin 30.4 pg (27.0-31.2); Mean Platelet Volume 11.1 fl (7.4-10.4); Monocytes # 0.6 K/mm3 (0.1-1.0); Neutrophils # 8.7 K/mm3 (1.8-7.8); Neutrophils % 73.1 % (37.0-80.0); Platelet Count 186 K/mm3 (142-424); Red Blood Count 3.95 M/mm3 (4.20-5.40); Red Cell Distribution Width 13.2 % (11.5-17.5); White Blood Count 11.9 K/mm3 (4.8-10.8)
[2023-06-15 17:51] LABS: Alanine Aminotransferase 16 U/L (12-78); Anion Gap 13.1 mEq/L (5-15); Aspartate Amino Transferase 22 U/L (14-36); Blood Urea Nitrogen 6 mg/dl (7-17); Calcium 9.4 mg/dl (8.4-10.2); Carbon Dioxide 23 mmol/L (22.0-30.0); Chloride 106 mmol/L (98-107); Creatinine Clearance Estimated 215 mL/min (50-200); Estimated Glomerular Filt Rate 102 ml/min (>60); GFR (African American) 123 ML/MIN (>60); Glucose 86 mg/dl (74-100); Potassium 3.1 mmoL/L (3.5-5.1); Sodium 139 mmol/L (136-145); Uric Acid 5.6 mg/dl (2.5-6.2)
[2023-06-15 18:03] LABS: Activated Partial Thrombo Time 26.7 seconds (22.8-30.6); Fibrinogen 401 mg/dL (229.9-363.5); Prothrombin Time 10.8 seconds (10.1-12.5)
[2023-06-15 18:05] LABS: D-Dimer 1.08 ug/mL (0.0-0.5)
[2023-06-16 04:47] LABS: Microscopic, Urine URINE MICROSCOPIC (MICROSCOPIC)
[2023-06-16 04:50] LABS: Appearance,Urine CLEAR (Clear); Bilirubin,Urine Negative (Negative); Blood, Urine Negative (Negative); Color,Urine YELLOW (Yellow); Glucose,Urine (UA) Negative (Negative); Ketones,Urine Negative (Negative); Leukocyte Esterase,Urine 1+ (Negative); Nitrate,Urine Negative (Negative); PH,Urine 6.5 (5.0-8.5); Protein,Urine Negative (Negative); Urobilinogen,Urine 0.2 EU/dl (0.2)
[2023-06-16 05:19] LABS: Amorphous Sediment,Urine 1+ /lpf; Bacteria,Urine 1+ /lpf
[2023-06-16 07:06] LABS: Amphetamine/Metha Screen,Urine Negative ng/ml (<1000); Barbiturates Screen,Urine Negative ng/ml (<200); Benzodiazepines Screen,Urine Negative ng/ml (<200); Cannabinoid Screen,Urine Negative ng/ml (<50); Cocaine Screen,Urine Negative ng/ml (<300); Methadone Screen,Urine Negative ng/ml (<300); Opiate Screen,Urine Negative ng/ml (<300); Phencyclidine Screen,Urine Negative ng/ml (<25)
--- NOTE | 2023-06-16 09:22 | HMH.PHAINT1 ---
Pharmacy Intervention Comments: home medication list verified using list from outpatient pharmacy
--- NOTE | 2023-06-16 10:52 | EXP.LABOR.NO ---
Labor Note Subjective: Date: 06/16/23 Time: 08:20 regular contraction Objective: NST:: Reactive Contractions:: every 4-5 minutes Cervical Dilation:: 2 Effacement:: 25% Station: -3 Membranes: artificially ruptured Fetus: Monitoring?: Yes monitoring type:: Internal and External Comment:: I inserted an IPC Assessment: Labor progressing?: Yes Cephalopelvic disproportion?: No Plan: Anesthesia for epidural?: Yes Continue to labor down?: Yes Plan for ?: No Continue to monitor?: Yes Start pushing?: No Comment:: She has progressed overnight. She was closed yesterday and the cervix is now 2 cm. The head is still high other root she has changed enough that I could rupture her membranes. I inserted an IPC. She has had 2 previous vaginal deliveries so expect another vaginal delivery.
--- NOTE | 2023-06-16 10:53 | EXP.HP ---
History of Present Illness *Admission Date: 06/15/23 *Reason for visit:: History of preeclampsia, increased blood pressure *History of present illness: She has a history of increased blood pressure and pregnancies. She delivered early in 2 of her other pregnancies. She has been on nifedipine 60 mg and her blood pressures are stable but on the high side of stable. Usually in the 130s to 140s over 80s to 90s. She denies any headaches or scotomata. As result that she is admitted for induction of labor at [address] [facility] Disclaimer: The information contained in this section may have been updated after the patient was seen, as this information can be updated by other users. Medical History Anxiety Asthma Depression Hypertension Surgical History [place] teeth extracted Family History No significant family history Social History Smoking Status: Never smoker second hand exposure: Yes alcohol intake: former substance use type: denies use current occupational status: unemployed Travel in the last 8 weeks: None housing: house Review of Systems Review of Systems Review of systems:: pertinent systems reviewed and negative unless documented below Meds Home Medications and Allergies Home Medications Medication Instructions Recorded Confirmed Type valacyclovir 500 mg tablet 500 mg PO DAILY herpres infection 11/26/22 06/16/23 History vits no.126-ferrous fum 1 tab PO DAILY Supplement #30 tabs 01/06/23 06/16/23 Rx 28 mg iron-folic acid 800 mcg tablet (Classic ) albuterol sulfate 90 mcg/actuation 2 inh inhalation Q6H PRN shortness 01/17/23 06/16/23 Rx aerosol inhaler of breath or wheezing #8.5 grams magnesium oxide 500 mg capsule 500 mg PO DAILY Supplement 02/03/23 06/16/23 History famotidine 20 mg tablet (Pepcid) 20 mg PO DAILY Acid Reflux 06/16/23 06/16/23 History ferrous sulfate 325 mg (65 mg 325 mg PO DAILY iron supplement 06/16/23 06/16/23 History iron) tablet,delayed release nifedipine 30 mg tablet,extended 60 mg PO DAILY blood pressure 06/16/23 06/16/23 History release New Prescriptions to Start Prescriptions: Allergies Allergy/AdvReac Type Severity Reaction Status Date / Time blueberry Allergy Verified 06/12/23 10:36 cat dander Allergy Verified 06/12/23 10:36 dog dander Allergy Verified 06/12/23 10:36 house dust Allergy Verified 06/12/23 10:36 codfish Allergy Uncoded 06/12/23 10:36 Exam Data for Last 24 hours Vital signs and Labs for Last 24 Hours: Temp Pulse Resp BP Pulse Ox O2 Del Method 99.3 F 111 H 18 147/83 H 96 Room Air 06/15/23 16:04 06/15/23 16:04 06/15/23 16:04 06/15/23 16:04 06/15/23 16:04 06/15/23 16:04 Laboratory Results - last 24 hr 06/15/23 16:37: WBC 11.9 H, RBC 3.95 L, Hgb 12.0 L, Hct 35.9 L, MCV 91.0, MCH 30.4, MCHC 33.4, RDW 13.2, Plt Count 186, MPV 11.1 H, Neut % (Auto) 73.1, Lymph % (Auto) 19.7, [place] % (Auto) 5.0, Eos % (Auto) 2.0, Baso % (Auto) 0.3, Neut # (Auto) 8.7 H, Lymph # (Auto) 2.3, [place] # (Auto) 0.6, Eos # (Auto) 0.2, Baso # (Auto) 0.0, D-Dimer 1.08 H, Sodium 139, Potassium 3.1 L, Chloride 106, Carbon Dioxide 23, Anion Gap 13.1, BUN 6 L, Creatinine 0.70, Estimated Creat Clear 215, Estimated GFR 102, Est GFR ( Amer) 123, Glucose 86, Uric Acid 5.6, Calcium 9.4, AST 22, ALT 16, Blood Type A Positive, Antibody Screen Negative 06/15/23 16:41: Urine Color Yellow, Urine Appearance Clear, Urine pH 6.5, Ur Specific [place] 1.010, Urine Protein Negative, Urine Glucose (UA) Negative, Urine Ketones Negative, Urine Blood Negative, Urine Nitrate Negative, Urine Bilirubin Negative, Urine Urobilinogen 0.2, Ur Leukocyte Esterase 1+ A, Urine RBC None, Urine WBC 10-20, Ur Squamous Epith Cells 10-20, Amorphous Sediment 1
--- NOTE | 2023-06-16 11:33 | EXP.LABOR.NO ---
Labor Note Subjective: Date: 06/16/23 Time: 11:33 regular contraction Objective: NST:: Reactive Contractions:: every 2-3 minutes Cervical Dilation:: 2-3 Effacement:: 50% Station: -2 Membranes: artificially ruptured Fetus: Monitoring?: Yes monitoring type:: Internal and External Assessment: Labor progressing?: Yes Cephalopelvic disproportion?: No Plan: Anesthesia for epidural?: Yes Continue to labor down?: Yes Plan for ?: No Continue to monitor?: Yes Start pushing?: No Comment:: The cervix is softer and has effaced 50% now. The cervix is also, more anterior. She has dilated slightly more as well. We will anticipate a vaginal delivery.
--- NOTE | 2023-06-16 13:35 | EXP.LABOR.NO ---
Labor Note Subjective: Date: 06/16/23 Time: 13:35 regular contraction Objective: NST:: Reactive Contractions:: every 2-3 minutes Cervical Dilation:: 3-4 Effacement:: 75% Station: -2 Membranes: artificially ruptured Fetus: Monitoring?: Yes monitoring type:: Internal and External Assessment: Labor progressing?: Yes Cephalopelvic disproportion?: No Plan: Anesthesia for epidural?: Yes Continue to labor down?: Yes Plan for ?: No Continue to monitor?: Yes Start pushing?: No Comment:: She has now started to change her cervix more. Baby's head is come down. We will anticipate a vaginal delivery.
--- NOTE | 2023-06-16 15:40 | P.PNANES_ITS ---
[facility] Disclaimer: The information contained in this section may have been updated after the patient was seen, as this information can be updated by other users. Medical History Anxiety Asthma Depression Hypertension Surgical History [place] teeth extracted Family History No significant family history Social History Smoking Status: Never smoker second hand exposure: Yes alcohol intake: former substance use type: denies use current occupational status: unemployed Travel in the last 8 weeks: None housing: house [facility] Anesthesia Checklist Patient Identification Patient Identification: Arm Band Structural Data Admitted From: Inpatient Planned Operative Procedure/s: Labor Epidural Consent for Planned Operative Procedure(s) Verified: Yes Verified Documents: Surgical Consent and History and Physical NPO Status Verified Time NPO: 00:00 Additional verifications Anesthesia Reactions: No Airway Assessment Mallampati Score:: Class II C-Spine Mobility Assessed: Yes TMJ Mobility Assessed: Yes Dentition: Good Dentition Neurological Assessment Level of Consciousness: Awake and Alert Anesthesia Plan Anesthesia Risk discussed: Yes Anesthesia Plan: Verified ASA Class: II Anesthesia Type: Epidural
--- NOTE | 2023-06-16 16:29 | EXP.LABOR.NO ---
Labor Note Subjective: Date: 06/16/23 Time: 16:29 regular contraction Objective: Contractions:: every 4-5 minutes Cervical Dilation:: 4 Effacement:: 50% Station: -2 Membranes: artificially ruptured Fetus: Monitoring?: Yes monitoring type:: Internal and External Assessment: Labor progressing?: Yes Cephalopelvic disproportion?: No Plan: Anesthesia for epidural?: Yes Continue to labor down?: Yes Plan for ?: No Continue to monitor?: Yes Start pushing?: No Comment:: She now has her epidural and she is quite comfortable. Cervix has changed to a good 4 cm. Nonstress test is reactive.
--- NOTE | 2023-06-16 19:11 | EXP.LABOR.NO ---
Labor Note Subjective: Date: 06/16/23 Time: 19:11 regular contraction Objective: NST:: Reactive Contractions:: every 2-3 minutes Cervical Dilation:: 4 Effacement:: 50% Station: -2 Membranes: artificially ruptured Fetus: Monitoring?: Yes monitoring type:: Internal and External Assessment: Labor progressing?: Yes Cephalopelvic disproportion?: No Plan: Anesthesia for epidural?: Yes Continue to labor down?: Yes Plan for ?: No Continue to monitor?: Yes Start pushing?: No Comment:: She will has not progressed much in the last couple of hours. She has been having strong regular contractions. She has had a previous 8+ pound baby. She was 37 weeks when she delivered the 8 pound baby. She is just 37 weeks now. There seems to be some molding the head. Will see how she does over the next couple of hours. If she has not really progressed much beyond that we will consider a section.
--- NOTE | 2023-06-16 21:07 | EXP.LABOR.NO ---
Labor Note Subjective: Date: 06/16/23 Time: 21:07 regular contraction Objective: NST:: Reactive Contractions:: every 2-3 minutes Cervical Dilation:: 5 Effacement:: 60% Station: -2 Membranes: artificially ruptured Fetus: Monitoring?: Yes monitoring type:: Internal and External Assessment: Labor progressing?: Yes Cephalopelvic disproportion?: No Plan: Anesthesia for epidural?: Yes Continue to labor down?: Yes Plan for ?: No Continue to monitor?: Yes Start pushing?: No Comment:: She has progressed from 4 to 5 cm. Cervix is very soft and stretchy. There is still some molding of the head. She says that when she was in labor with her other babies she went very slowly. We just continue to see how she does since she has had an 8-1/2 pound baby. This baby was 5-1/2 pounds 3 weeks ago.
--- NOTE | 2023-06-17 00:32 | P.PCN_ITS ---
Delivery Note Delivery Date:: 06/17/23 Delivery Time:: 00:16 Anesthesia Type: Epidural Was labor medically induced?: Yes Induction method: per misoprostol protocol Gestational age (weeks): 37 Infant delivered prior to 39 weeks?: Yes Justification for early elective delivery:: Gestational Hypertension Gender: Female at 1 minute: 7 at 5 minutes: 9 LAC or MLE?: LAC Delivery Procedure:: She is a 23-year-old 3 para 2 at 37 weeks gestational age. She has had 2 previous vaginal deliveries. She has had a history of -induced hypertension and in this she was recently taking nifedipine for her increased blood pressure. As result of the increasing need for blood pressure medicine we elected to induce her labor at 37 weeks. She was started on Cervidil on the evening of June 15, 2023. The next morning on June 16, 2023 she was started on IV oxytocin had her membranes ruptured. She progressed under labor epidural and delivered spontaneously a liveborn female child at 12:16 on the morning of June 17, 2023. On delivery the head the anterior shoulder then easily delivered followed by the rest the infant's body atraumatically. The oropharynx and nasopharynx were bulb suction. The baby was vigorous and cried. We allowed the cord to continue to pulsate for approximately 1 minute. The cord was then doubly clamped and cut and the was placed on the mother's abdomen for further ca re. The nurses assigned Apgars of 7 at 1 minute and 9 at 5 minutes. We then obtained cord blood. She received IV oxytocin using gentle traction on the cord and countertraction the fundus I was able to easily deliver the placenta 5 minutes after delivery. He had a normal three-vessel cord. She had a small posterior vaginal laceration that was repaired with a single interrupted 3-0 Vicryl Rapide suture. Estimated blood loss was approximately 250 cc. I did give her 400 mcg of misoprostol as well as 1 dose of Hemabate since she had been in labor for so long. Laceration:: vaginal Placental Delivery Description: Spontaneous
--- NOTE | 2023-06-17 08:47 | P.PN_ITS ---
Subjective *Date: 06/17/23 *Time: 08:47 Interval history: She continues to do well this morning. She is eating and drinking and ambulating. She is breast-feeding. Her lochia is normal. She received Hemabate last night and she does have some diarrhea this morning. Will give her 1 dose of Imodium and see if this helps. Medical Exam Vital signs and Labs for Last 24 Hours: Intake and Output 06/16/23 06/17/23 06/17/23 19:59 03:59 11:59 Output Total 1000 / 1000 Balance -1000 / -1000 Output: Output, Urine Amount (Catheter) 1000 / 1000 Daly 1000 / 1000 I & O for Labs for Last 24 Hours: Intake & Output 06/14/23 06/15/23 06/16/23 06/17/23 11:59 11:59 11:59 11:59 Output Total 1000 / 1000 Balance -1000 / -1000 Weight 244 lb Microbiology Reports for the Last 24 Hours: Microbiology 06/15/23 16:41 Urine,Clean Catch Urine Culture - Preliminary Head: Present atraumatic Neck: Present normal inspection Respiratory: Present normal respiratory effort; Absent accessory muscle use Assessment and Plan *Assessment and plan (1) induced hypertension: Status: Acute Qualifiers: Trimester: third trimester Qualified Code(s): O13.3 - Gestational [-induced] hypertension without significant proteinuria, third trimester Category: Medical Code(s): O13.9 - Gestational [-induced] hypertension without significant proteinuria, unspecified trimester (2) History of pre-eclampsia in prior , currently : Status: Acute Category: Medical Code(s): O09.299 - Supervision of with other poor reproductive or obstetric history, unspecified trimester (3) Herpes simplex type 2 (HSV-2) infection affecting , antepartum: Status: Acute Category: Medical Code(s): O98.519 - Other viral diseases complicating , unspecified trimester; B 00.9 - Herpesviral infection, unspecified (4) Normal delivery: Status: Acute Category: Medical Code(s): O80 - Encounter for full-term uncomplicated delivery Plan She continues to do well. Will plan to send her home tomorrow.
[2023-06-17 09:55] LABS: Hematocrit 34.5 % (37.0-47.0); Hemoglobin 11.6 g/dL (12.2-16.2)
--- NOTE | 2023-06-17 10:34 | CARE MANAGER ---
Addendum entered by Opal Rosario 06/20/23 08:12: Infant cord screen is negative. Original Note: Receive referral on the above stated patient for THC on first visit on 11/26/22. Patient has had negative testing on 04.08.23, 04.28.23, 05.15.23, and 06.15.23. Baby urine is negative as well. Nursing staff states that patient is bonding well with infant and they have no issues whatsoever with the patient. Patient tells me that she is on WICC, SNAP at home. She has other children ages 4 and 1 that she has custody of. She is not and the father of this baby is not the father of her other children. CM noted no issues on this patient and this case will not be called in at this time due to mother not being positive since November and baby negative for THC at this time. This was communicated to staff nurse as well.
[2023-06-18 07:57] VITALS: BP 141/83; PULSE 90; RESP 18; TEMP 36.9; O2SAT 97
--- NOTE | 2023-06-18 08:51 | EXP.DC.SUM ---
General Admission date:: 06/15/23 Discharge date: 06/18/23 HPI HPI HPI: She has a history of increased blood pressure and pregnancies. She delivered early in 2 of her other pregnancies. She has been on nifedipine 60 mg and her blood pressures are stable but on the high side of stable. Usually in the 130s to 140s over 80s to 90s. She denies any headaches or scotomata. As result that she is admitted for induction of labor at 37 weeks. Hospital Course Hospital Course Hospital Course: She was admitted on June 15, 2023 and had Cervidil placed. The following morning she was started on IV oxytocin had her membranes ruptured. Under labor epidural she progressed to full dilation and delivered spontaneously a liveborn female child at 12:16 on the morning of June 17, 2023. The baby weighed 7 pounds 8 ounces and had Apgars of 7 at 1 minute and 9 at 5 minutes. She has done well and has remained afebrile throughout her hospitalization. She is eating and drinking and ambulating. She is breast-feeding. Her lochia is normal. She has a positive blood, she is rubella immune and was group B streptococcus negative. Her blood pressures have stabilized. She will continue with her nifedipine 60 mg XL daily. She will follow-up with me in 2 weeks time. She was given the usual instructions with respect to limiting her activity, driving and sexual activity. Her condition on discharge is stable and improved. Exam Data for Last 24 hours Vital signs and Labs for Last 24 Hours: Temp Pulse Resp BP Pulse Ox O2 Del Method 99.3 F 111 H 18 147/83 H 96 Room Air 06/15/23 16:04 06/15/23 16:04 06/15/23 16:04 06/15/23 16:04 06/15/23 16:04 06/15/23 16:04 Laboratory Results - last 24 hr 06/17/23 09:30: Hgb 11.6 L, Hct 34.5 L I & O for Last 24 hours: Intake & Output 06/15/23 06/16/23 06/17/23 06/18/23 11:59 11:59 11:59 11:59 Output Total 1000 / 1000 Balance -1000 / -1000 Weight 244 lb Microbiology Reports for the Last 24 Hours: Microbiology 06/15/23 16:41 Urine,Clean Catch Urine Culture - Final Multiple organisms, suggests contamination. Constitutional Constitutional: no acute distress *Routine HEENT Exam Head: Present normocephalic *Routine Respiratory Exam Respiratory: Present normal respiratory effort; Absent accessory muscle use Results Data Completed and Pending Labs on day of discharge: Labs from last 24 hours 06/17/23 09:30 Hgb 11.6 L Hct 34.5 L DS: Diagnosis Discharge Diagnosis (1) induced hypertension: Status: Acute Code(s): O13.9 - Gestational [-induced] hypertension without significant proteinuria, unspecified trimester Qualifiers: Trimester: third trimester Qualified Code(s): O13.3 - Gestational [-induced] hypertension without significant proteinuria, third trimester (2) History of pre-eclampsia in prior , currently : Status: Acute Code(s): O09.299 - Supervision of with other poor reproductive or obstetric history, unspecified trimester (3) Herpes simplex type 2 (HSV-2) infection affecting , antepartum: Status: Acute Code(s): O98.519 - Other viral diseases complicating , unspecified trimester; B00.9 - Herpesviral infection, unspecified (4) Normal delivery: Status: Acute Code(s): O80 - Encounter for full-term uncomplicated delivery Meds Home Medications and Allergies Home Medications Medication Instructions Recorded Confirmed Type valacyclovir 500 mg tablet 500 mg PO DAILY herpres infection 11/26/22 06/16/23 History vits no.126-ferrous fum 1 tab PO DAILY Supplement #30 tabs 01/06/23 06/16/23 Rx 28 mg iron-folic acid 800 mcg tablet (Classic ) albuterol sulfate 90 mcg/actuation 2 inh inhalation Q6H PRN shortness 01/17/23 06/16/23 Rx aerosol inhaler of breath or w
== END 2023-06-18 13:30 | disposition home or self-care (01) | DRG 806 ==
PROVIDERS: Admitting Provider Nurse Practitioner Obstetrics & Gynecology; PCP Nurse Practitioner Family; Visit Provider Nurse Practitioner Obstetrics & Gynecology
DX: O14.94 Unspecified pre-eclampsia, complicating childbirth (principal); O98.52 Other viral diseases complicating childbirth; Z37.0 Single live birth; Z3A.37 37 weeks gestation of pregnancy; O13.4 Gestational [pregnancy-induced] hypertension without significant proteinuria, complicating childbirth; O70.0 First degree perineal laceration during delivery
CPT/HCPCS: 59409; 36415; 59025; 80048; 80305; 81001; 84450; 84460; 84550; 85014; 85018; 85025; 85378; 85384; 85610; 85730; 86850; 87086; 94761; C1758; G0283; J2405

== ENCOUNTER 2023-06-25 20:22 | Outpatient (CLI) | payer OTHER, SELFPAY ==
[2023-06-25 20:31] VITALS: BMI 38.2
[2023-06-25 20:35] VITALS: BP 145/87; PULSE 92; RESP 18; TEMP 36.7; O2SAT 98
[2023-06-25 20:37] LABS: Microscopic, Urine URINE MICROSCOPIC (MICROSCOPIC)
--- NOTE | 2023-06-25 20:42 | PC.NURSE ---
Pt to unit at this time via wheelchair, pt complains of a headache and increased blood pressure, denies any blurry vison or epigastric pain at this time, pt reports having a few rough days with the baby and has not taken her bp meds for the last few days . Vitals in [facility]. negative clonus bilaterally, pt to provide urine at this time, will await results.
[2023-06-25 20:47] VITALS: BP 145/87; PULSE 92; RESP 18; TEMP 36.7; O2SAT 99; BMI 41.8
[2023-06-25 20:47] LABS: Appearance,Urine CLEAR (Clear); Bilirubin,Urine Negative (Negative); Blood, Urine 3+ (Negative); Color,Urine YELLOW (Yellow); Glucose,Urine (UA) Negative (Negative); Ketones,Urine Negative (Negative); Leukocyte Esterase,Urine 2+ (Negative); Nitrate,Urine Negative (Negative); Protein,Urine Negative (Negative); Urobilinogen,Urine 0.2 EU/dl (0.2)
[2023-06-25 21:02] LABS: Barbiturates Screen,Urine Negative ng/ml (<200)
[2023-06-25 21:03] LABS: Amphetamine/Metha Screen,Urine Negative ng/ml (<1000); Benzodiazepines Screen,Urine Negative ng/ml (<200)
[2023-06-25 21:04] LABS: Methadone Screen,Urine Negative ng/ml (<300)
[2023-06-25 21:05] LABS: Cannabinoid Screen,Urine Negative ng/ml (<50); Cocaine Screen,Urine Negative ng/ml (<300)
[2023-06-25 21:06] LABS: Opiate Screen,Urine Negative ng/ml (<300)
[2023-06-25 21:07] LABS: Bacteria,Urine 1+ /lpf; Phencyclidine Screen,Urine Negative ng/ml (<25); RBC,Urine TNTC #/hpf (0-3)
--- NOTE | 2023-06-25 21:19 | PC.NURSE ---
Spoke with Dr Medina at this time reguarding pt, reported urine and vitals at this time, Advised pt can go home and see staci in the am or admit and start mag, pt reported that she does not have anyone to help with her baby or to even watch her baby, reeducated pt on being in mild range of preecamplsia at this time but pt must follow up with staci in am,Pt also can take one extra 30mg of her bp med tonight when she gets home per Dr Medina. pt verbalized understanding at this time.
--- NOTE | 2023-07-02 16:29 | PC.NURSE ---
PATIENT REFUSED TO ANSWER DEPRESSION SCREENING- REPORTS DR HAYES ASKED IN OFFICE AND STARTED ON MEDICATION.
== END 2023-06-25 21:30 | disposition home or self-care (01) ==
LOC: OBOUT 20:23 → OB 20:24
PROVIDERS: PCP Nurse Practitioner Family; Visit Provider Obstetrics & Gynecology
DX: O90.89 Other complications of the puerperium, not elsewhere classified (principal); R51.9 Headache, unspecified
CPT/HCPCS: 80305; 81001; 87086; G0463

== ENCOUNTER 2023-11-12 18:46 | Emergency (ER) | payer OTHER, SELFPAY ==
[2023-11-12 19:00] VITALS: BP 142/75; PULSE 134; RESP 18; TEMP 37.9; O2SAT 95; BMI 36.0
[2023-11-12 19:17] LABS: UTC Influenza A Antigen Negative (Negative); UTC Influenza B Antigen Negative (Negative)
--- NOTE | 2023-11-12 19:21 | EXP.UTC ---
Discharge Plan Disposition Patient Disposition: Home, Self-Care Condition: Good Prescriptions Prescriptions: New prednisone [prednisone] 20 mg tablet 20 mg PO BID 3 Days Qty: 6 0RF No Action albuterol sulfate 90 mcg/actuation HFA aerosol inhaler 2 inh inhalation Q6H PRN (Reason: shortness of breath or wheezing) Qty: 8.5 2RF Referrals Follow up/Referrals: Leonora Wade APRN [Primary Care Provider] - See instructions Activity Restrictions/Add. Instructions Additional Instructions/Restrictions: No sign of a bacterial infection. Likely viral. Viruses can take 7-14 days to run their course. Nasal saline and bulb syringe or nose Hilda to remove nasal drainage to help with nasal congestion. Hard to eat, drink, sleep with nasal congestion so important to keep this cleaned out. Monitor temp. Tylenol or Motrin as needed for pain or fever Encourage fluids, water, Gatorade, Powerade, Pedialyte if infant/toddler/child Warm salt water gargles Warm fluids Sore throat lozenges Sleep elevated Humidifier/vaporizer Follow-up immediately for new or worsening symptoms or no noticeable improvement over the next 48-72 hours. take steroids and wait 4 hours to breast feed Clinical Impressions Clinical Impression: Upper respiratory infection Qualifiers: URI type: unspecified viral URI Qualified Code(s): J06.9 - Acute upper respiratory infection, unspecified Instructions Patient Instructions: DI for Viral Upper Respiratory Infection -- Adult Discharge ED Provider: Casey ([facility])Cris [facility] HPI General Stated complaint: ba cough soa case fever 101.9 Mode of Arrival: Ambulatory Source of Information: Patient Limitations: No Limitations Time Seen by Provider: 11/12/23 19:21 Description of Symptoms (Recalled from Triage Doc. by RN): chills, cough, CASE, fever, body aches, congestion, and chest congestion. HEENT Symptoms (Recalled from RN notes): Yes Resp Symptoms (Recalled from RN notes): No Skin Symptoms (Recalled from RN notes): No MS Symptoms (Recalled from RN notes): No Functional Status (Recalled from RN notes): n/a History of Present Illness Provider Complaint: 23 yr old female presents for chills, cough, CASE, fever, body aches, congestion, and chest congestion that started last pm Related Data Previous Rx's Medication Instructions Recorded albuterol sulfate 90 mcg/actuation 2 inh inhalation Q6H PRN shortness 01/17/23 aerosol inhaler of breath or wheezing #8.5 grams prednisone 20 mg tablet 20 mg PO BID 3 days #6 tabs 11/12/23 Allergies Allergy/AdvReac Type Severity Reaction Status Date / Time blueberry Allergy Verified 11/12/23 19:13 cat dander Allergy Verified 11/12/23 19:13 dog dander Allergy Verified 11/12/23 19:13 house dust Allergy Verified 11/12/23 19:13 codfish Allergy Uncoded 08/26/23 15:55 Worker's Comp Is this a Worker's Comp case?: No [facility] Disclaimer: The information contained in this section may have been updated after the patient was seen, as this information can be updated by other users. Medical History , DIRECTOR OUTPATIENT SERVICES) Anxiety Asthma Asthma exacerbation Asthma with exacerbation Bronchitis Crush injury to finger Cystitis Depression Exposure to COVID-19 virus Fatigue Gastroenteritis Herpes genitalis History of chlamydia Hypertension Marginal insertion of umbilical cord affecting management of mother Nausea Nausea vomiting and diarrhea Negative test Non-compliance Pilonidal abscess Positive urine drug screen Right upper quadrant abdominal pain Sinusitis Sprain of left foot Upper respiratory disease URI (upper respiratory infection) UTI (urinary tract infection) UTI (urinary tract infection) Viral syndrome Vulvar lesion Surgical History , DIRECT[employer] OUTPATIENT SERVICES) [place] teeth extracted Family History , DIRECTOR OUTPATIENT SERVICES) No significant family history Social History , [employer] OUTPATIENT SERVICES) Smoking Status: Never smoker second hand exposure: Yes alcohol intake: former substance use type: denies use current occupational status: employed Travel in the last 8 weeks: None housing: house ROS Obtained: Yes All systems reviewed & no additional complaints except as documented Constitutional Constitutional: Reports system reviewed and no additional complaints, except as documented, Reports as per HPI, Reports body ache, Reports chills and Reports fever(s) Eyes Eyes: Reports system reviewed and no additional complaints, except as documented ENT Ears, Nose, Mouth, and Throat: Reports system reviewed and no additional complaints, except as documented, Reports as per HPI, Reports nasal congestion, Reports nasal discharge and Reports sinus pressure Cardiovascular Cardiovascular: Reports system reviewed and no additional complaints, except as documented Respiratory Respiratory: Reports system reviewed and no additional complaints, except as documented, Reports as per HPI, Reports cough and Reports wheezing Gastrointestinal Gastrointestingal: Reports system reviewed and no additional complaints, except as documented Musculoskeletal Musculoskeletal: Reports system reviewed and no additional complaints, except as documented Integumentary/Breasts Skin/Breast: Reports system reviewed and no additional complaints, except as documented Neurologic Neurologic: Reports system reviewed and no additional complaints, except as documented Endocrine Endocrine: Reports system reviewed and no additional complaints, except as documented Hematologic/Lymphatic Henatologic/Lymphatic: Reports system reviewed and no additional complaints, except as documented Allergic/Immunologic Allergic/Immunologic: Reports system reviewed and no additional complaints, except as documented and Reports wheezing Physical Exam General General appearance: alert and in no apparent distress Head Head exam: atraumatic Eye Eye exam: Present normal appearance and PERRL ENT ENT exam: Present normal exam, normal oropharynx, mucous membranes moist and TM's normal bilaterally Respiratory Respiratory exam: Present wheezes Cardiovascular Cardiovascular exam: Present regular rate and normal rhythm Neurological Exam Neurological exam: Present alert and oriented X3 Skin Skin exam: Present warm Medical Decision Making Medical Records Medical records reviewed: Yes I reviewed the patient's medical records. [place] Inquiry Pt receiving controlled substance: No [place] was queried for this patient: No Vital Signs: 11/12/23 19:00 Temperature 100.3 F H Temperature Source Oral Pulse Rate [Right Radial] 134 H Respiratory Rate 18 Blood Pressure [Right Arm] 142/75 H Blood Pressure Mean [Right Arm] 97 Blood Pressure Source [Right Arm] Automatic Cuff Blood Pressure Position [Right Arm] Sitting 02 Sat by Pulse Oximetry 95 Oxygen Delivery Method Room Air Lab Data Lab results reviewed: Yes I reviewed the patient's lab results. Lab Results 11/12/23 19:09: Influenza Type A Ag Negative, Influenza Type B Ag Negative
[2023-11-12 19:50] LABS: Adenovirus,PCR Not Detected (NotDetected); Coronavirus 229E Not Detected (NotDetected); Coronavirus NL63 Not Detected (NotDetected); Coronavirus OC43 Not Detected (NotDetected); Coronovirus HKU1,PCR Not Detected (NotDetected); Human Metapneumovirus Not Detected (NotDetected); Influenza A, PCR Not Detected (NotDetected); Influenza AH1, 2009 Not Detected (NotDetected); Influenza AH1, PCR Not Detected (NotDetected); Rhinovirus/Enterovirus Not Detected (NotDetected)
[2023-11-12 19:51] VITALS: BP 142/75; PULSE 134; RESP 18; TEMP 37.5; O2SAT 95
[2023-11-12 19:52] LABS: Coronavirus 19, PCR Not Detected (NotDetected); Influenza B, PCR Not Detected (NotDetected); Parainfluenza 1, PCR Not Detected (NotDetected); Parainfluenza 2, PCR Not Detected (NotDetected); Parainfluenza 3, PCR Not Detected (NotDetected); Parainfluenza 4, PCR Not Detected (NotDetected); Respiratory Syncytial Virus Not Detected (NotDetected)
[2023-11-13 00:14] LABS: Influenza AH3,PCR Not Detected (NotDetected)
== END 2023-11-12 19:51 | disposition home or self-care (01) ==
PROVIDERS: Emergency Provider Nurse Practitioner Family; PCP Nurse Practitioner Family
DX: R51.9 Headache, unspecified; R50.9 Fever, unspecified; R05.9 Cough, unspecified; R09.81 Nasal congestion; R09.89 Other specified symptoms and signs involving the circulatory and respiratory systems; M79.18 Myalgia, other site; J06.9 Acute upper respiratory infection, unspecified; J45.909 Unspecified asthma, uncomplicated
CPT/HCPCS: 87581; 87632; 87635; 87798; 87804; 99212; 99214; G0463

== ENCOUNTER 2023-11-17 15:12 | Emergency (ER) | payer OTHER, SELFPAY ==
[2023-11-17 15:13] VITALS: BP 169/97; PULSE 118; RESP 20; TEMP 39.4; O2SAT 96; BMI 36.0
--- NOTE | 2023-11-17 15:52 | XR_ITS ---
PROCEDURE INFORMATION: Exam: XR Chest Exam date and time: 11/17/2023 4:46 PM Age: 23 years old Clinical indication: Condition or disease; Lung condition and disease; Patient HX: PT states cough, SOA, heavy chest feeling. Has been using her asthma treatment but does not seem to be helping; Additional info: Cough/ congestion TECHNIQUE: Imaging protocol: Radiologic exam of the chest. Views: 2 views. COMPARISON: No relevant prior studies available. FINDINGS: Lungs: Multifocal parenchymal consolidation concerning for pneumonia which is most confluent in the left lower lobe. Pleural spaces: No large effusion or pneumothorax. Heart/Mediastinum: No evidence of mediastinal widening or cardiac silhouette enlargement; the mediastinum and heart appear within normal limits for contour and size. Bones/joints: No evidence of acute osseous abnormalities within the visualized portions of the thoracic spine and ribs. Osseous structures appear appropriate for patient age. IMPRESSION: Multifocal parenchymal consolidation concerning for pneumonia which is most confluent in the left lower lobe.
--- NOTE | 2023-11-17 15:55 | ED_ITS ---
Discharge Plan Disposition Patient Disposition: Home, Self-Care Prescriptions Prescriptions: New albuterol sulfate 1.25 mg/3 mL solution for nebulization 1.25 mg inhalation Q6H PRN (Reason: bronchospasm) Qty: 90 0RF albuterol sulfate 90 mcg/actuation HFA aerosol inhaler 2 inh inhalation Q4H PRN (Reason: shortness of breath or wheezing) Qty: 8.5 0RF prednisone 50 mg tablet 50 mg PO DAILY 5 Days Qty: 5 0RF azithromycin 250 mg tablet See Rx Instructions .ROUTE .COMPLEX Qty: 6 0RF Rx Instructions: For 250 mg dose pack: take 500 mg today (day 1), then 250 mg for 4 days (days 2-5) amoxicillin-pot clavulanate 875-125 mg tablet 1 tab PO BID 7 Days Qty: 14 0RF No Action prednisone [prednisone] 20 mg tablet 20 mg PO BID 3 Days Qty: 6 0RF albuterol sulfate 90 mcg/actuation HFA aerosol inhaler 2 inh inhalation Q6H PRN (Reason: shortness of breath or wheezing) Qty: 8.5 2RF Referrals Follow up/Referrals: Leonora Wade APRN [Primary Care Provider] - See instructions Activity Restrictions/Add. Instructions Additional Instructions/Restrictions: Please follow-up with your primary care provider. Please return to the emergency department if you develop any new or worsening symptoms or become concerned for your health. Please take antibiotics as prescribed for treatment of pneumonia. Please use albuterol inhaler and nebulizers as needed. Clinical Impressions Clinical Impression: Pneumonia, Asthma with acute exacerbation in adult Stand Alone Forms Stand Alone Forms: Work/School Release Discharge ED Provider: Hiro Escalante General Adult HPI General Chief complaint: Upper Respiratory Infection Stated complaint: Fever, cough,chest congestion Time Seen by Provider: 11/17/23 15:45 Mode of Arrival: Ambulatory Source of Information: Patient Limitations: No Limitations Description of Symptoms (Recalled from ER Triage Doc. by RN): pt to ED with cough, congestion, fever and bodyaches. pt was seen in the [facility] a few days ago and finished the regimen of prednisone she was given. pt has a history of asthma but is out of her rescue inhaler and has been doing neb treatments at home. History of Present Illness HPI narrative: 23-year-old female with history of asthma presents with worsening shortness of breath, cough, congestion, fever, and bodyaches. She reports that she was seen in the [facility] a few days ago and was given prednisone for her asthma. She had not given any antibiotics. She reports that fever and cough been worsening at home. She ran out of her rescue inhaler. She has been using her child's butyryl nebs intermittently. Related Data Previous Rx's Medication Instructions Recorded albuterol sulfate 90 mcg/actuation 2 inh inhalation Q6H PRN shortness 01/17/23 aerosol inhaler of breath or wheezing #8.5 grams prednisone 20 mg tablet 20 mg PO BID 3 days #6 tabs 11/12/23 albuterol sulfate 1.25 mg/3 mL 1.25 mg (3 mL) inhalation Q6H PRN 11/17/23 solution for nebulization bronchospasm #90 mL albuterol sulfate 90 mcg/actuation 2 inh inhalation Q4H PRN shortness 11/17/23 aerosol inhaler of breath or wheezing #8.5 grams amoxicillin 875 mg-potassium 1 tab PO BID 7 days #14 tabs 11/17/23 clavulanate 125 mg tablet azithromycin 250 mg tablet See Rx Instructions PO .COMPLEX #6 11/17/23 tabs prednisone 50 mg tablet 50 mg PO DAILY 5 days #5 tabs 11/17/23 Allergies Allergy/AdvReac Type Severity Reaction Status Date / Time blueberry Allergy Verified 11/12/23 19:13 cat dander Allergy Verified 11/12/23 19:13 dog dander Allergy Verified 11/12/23 19:13 house dust Allergy Verified 11/12/23 19:13 codfish Allergy Uncoded 08/26/23 15:55 [facility] Disclaimer: The information contained in this section may have been updated after the patient was seen, as this information can be updated by other users. Medical History , [employer]) Anxiety Asthma Asthma exacerbation Asthma with exacerbation Bronchitis Crush injury to finger Cystitis Depression Exposure to COVID-19 virus Fatigue Gastroenteritis Herpes genitalis History of chlamydia Hypertension Marginal insertion of umbilical cord affecting management of mother Nausea Nausea vomiting and diarrhea Negative test Non-compliance Pilonidal abscess Positive urine drug screen Right upper quadrant abdominal pain Sinusitis Sprain of left foot Upper respiratory disease URI (upper respiratory infection) UTI (urinary tract infection) UTI (urinary tract infection) Viral syndrome Vulvar lesion Surgical History , [employer]) [place] teeth extracted Family History , [employer]) No significant family history Social History , [employer]) Smoking Status: Current every day smoker tobacco type: cigarettes packs per day: 1 second hand exposure: Yes alcohol intake: former substance use type: denies use current occupational status: employed Travel in the last 8 weeks: None housing: house ROS Obtained: Yes All systems reviewed & no additional complaints except as documented Physical Exam General General appearance: alert and in no apparent distress Head Head exam: atraumatic and normocephalic Eye Eye exam: Present normal appearance, PERRL and EOMI ENT ENT exam: Present normal oropharynx and normal external ear exam Neck Neck exam: Present normal inspection and full ROM Chest Chest inspection: Present normal inspection and symmetric chest wall rise; Absent tenderness Respiratory Respiratory exam: Present wheezes and other (Mild tachypnea and accessory muscle use) Cardiovascular Cardiovascular exam: Present normal rhythm and tachycardia Abdominal Exam Abdominal exam: Present soft; Absent distention, tenderness or guarding Extremities Exam Extremities exam: Present normal inspection; Absent edema or joint swelling Back Exam Back exam: Present normal inspection; Absent tenderness Neurological Exam Neurological exam: Present alert and oriented X3; Absent motor sensory deficit Psychiatric Psychiatric exam: Present normal affect and normal mood Skin Skin exam: Present warm, dry and normal color Lymphatic Lymphatic Findings: no adenopathy Medical Decision Making Medical Records Medical records reviewed: Yes I reviewed the patient's medical records. Delmer Inquiry Pt receiving controlled substance: No Delmer was queried for this patient: No Vital Signs: 11/17/23 15:13 11/17/23 19:30 11/17/23 20:00 Temperature 102.9 F H Temperature Source Oral Pulse Rate 120 H 122 H Pulse Rate [Left Radial] 118 H Respiratory Rate 20 Blood Pressure 129/70 130/67 Blood Pressure [Right Arm] 169/97 H Blood Pressure Mean [Right Arm] 121 Blood Pressure Source [Right Arm] Automatic Cuff Blood Pressure Position [Right Arm] Sitting 02 Sat by Pulse Oximetry 96 96 93 L Oxygen Delivery Method Room Air Room Air 11/17/23 20:31 11/17/23 23:04 Temperature 98 F Temperature Source Pulse Rate 126 H 110 H Pulse Rate [Left Radial] Respiratory Rate 18 Blood Pressure 116/51 L 131/68 Blood Pressure [Right Arm] Blood Pressure Mean [Right Arm] Blood Pressure Source [Right Arm] Blood Pressure Position [Right Arm] 02 Sat by Pulse Oximetry 91 L Oxygen Delivery Method Room Air Room Air Lab Data Lab results reviewed: Yes I reviewed the patient's lab results. Lab Results 11/17/23 17:28: SARS-CoV-2 (PCR) Not detected, Influenza A Untype (PCR) Not dete cted, Influenza Type B (PCR) Not detected 11/17/23 18:05: VBG pH 7.39, VBG pCO2 38.2, VBG pO2 33.9, VBG HCO3 22.3 L, VBG Total CO2 23.5, VBG O2 Saturation 65.8, VBG Base Excess -2.7 L 11/17/23 18:25: WBC 11.8 H, RBC 4.40, Hgb 13.8, Hct 40.8, MCV 92.7, MCH 31.2, MCHC 33.7, RDW 12.7, Plt Count 273, MPV 9.0, Neut % (Auto) 74.0, Lymph % (Auto) 21.2, [place] % (Auto) 4.0, Eos % (Auto) 0.5, Baso % (Auto) 0.3, Neut # (Auto) 8.8 H, Lymph # (Auto) 2.5, [place] # (Auto) 0.5, Eos # (Auto) 0.1, Baso # (Auto) 0.0, Sodium 139, Potassium 3.1 L, Chloride 101, Carbon Dioxide 27, Anion Gap 14.1, BUN 8, Creatinine 0.60, Estimated Creat Clear 236, Estimated GFR 122, Est GFR ( Amer) 147, Glucose 117 H, Calcium 9.0, Total Bilirubin 0.5, AST 44 H, ALT 84 H, Alkaline Phosphatase 139 H, Total Protein 8.2 D, Albumin 4.2, Gaby bulin 4.0 H, Albumin/Globulin Ratio 1.1 11/17/23 18:25 11/17/23 18:25 Orders (Tests/Meds): ED MEDICATIONS Discontinued Medications Generic Name Dose Route Start Last Admin Trade Name Freq PRN Reason Stop Dose Admin Acetaminophen 1,000 mg 11/17/23 15:54 11/17/23 15:59 Acetaminophen 500mg Tab PO 11/17/23 15:55 1,000 mg ONCE ONE Administration Albuterol Sulfate 20 mg 11/17/23 18:04 11/17/23 18:46 Albuterol 0.083% 2.5 Mg/3 Ml [facility] 11/17/23 18:05 20 mg ONCE ONE Administration Albuterol Sulfate 2 puff 11/17/23 22:54 11/17/23 23:05 Albuterol-Hfa 90mcg/Puff Inhaler 8gm 12/17/23 22:53 2 puff Q4HP PRN Administration Shortness Of Breath Albuterol/Ipratropium 9 ml 11/17/23 15:59 11/17/23 17:11 Ipratropium/Albuterol 3 Ml [facility] 11/17/23 16:00 9 ml ONCE ONE Administration Amoxicillin/Clavulanate Potassium 1 each 11/17/23 17:19 11/17/23 17:49 Amoxicillin/Clavulanate Potassium 875/125mg Tablet PO 11/17/23 17:20 1 each ONCE ONE Administration Azithromycin 500 mg 11/17/23 17:19 11/17/23 17:49 Azithromycin 250mg Tablet PO 11/17/23 17:20 500 mg ONCE ONE Administration Dexamethasone 10 mg 11/17/23 15:59 11/17/23 17:11 Dexamethasone 4mg Tablet PO 11/17/23 16:00 10 mg ONCE ONE Administration Magnesium Sulfate 2 gm in 50 mls @ 50 mls/hr 11/17/23 18:04 11/17/23 18:23 Magnesium Sulfate 2gm/50ml Premix IV 11/17/23 19:03 50 mls/hr ONCE ONE Administration Miscellaneous 1 unit 11/17/23 22:54 11/17/23 23:06 Aerochamber/Optihaler MC 11/17/23 22:55 1 unit ONCE ONE Administration Sodium Chloride 3 ml 11/17/23 19:16 Sodium Chloride 3% 15ml [facility] 12/17/23 19:15 ONCE PRN INDUCE SPUTUM COLLECTION ORDERS Category Date Time Status XR chest 2V Stat Exams 11/17/23 15:52 Completed CBC w/Auto Diff [Complete Blood Count Auto Diff] Stat Lab 11/17/23 18:25 Completed CMP [Comprehensive Metabolic Panel] Stat Lab 11/17/23 18:25 Completed Rapid PCR Covid and Flu A/B Stat Lab 11/17/23 17:28 Completed Blood Culture Stat Micro 11/17/23 19:19 Received Sputum Culture & Gram Stain Stat Micro 11/17/23 21:00 Received VBG [Venous Blood Gas] Stat RT 11/17/23 18:05 Completed Medical Decision Narrative: 23-year-old female with history of asthma presents with worsening shortness of breath and fever and cough. History was obtained via conversation with patient. On arrival, patient is febrile, tachypneic, diffuse wheezing and prolonged expiratory phase noted, satting low 90s on room air,, moving all extremities spontaneously. Differential includes but is not limited to URI, COVID, flu, pneumonia, asthma exacerbation. Patient was given DuoNeb x 3, p.o. Decadron for symptomatic management and correction of underlying abnormalities. Workup initiated including chest x-ray, flu swab COVID swab. On re-evaluation, patient continues to feel dyspneic. Laboratory workup independently interpreted by me and significant for negative COVID flu swab. Imaging independently interpreted by me and significant for focal lung opacity concerning for pneumonia. See radiology read for full review of final results. Patient was initiated on Augmentin and azithromycin for coverage of commune acquired pneumonia. Given persistent symptoms despite p.o. steroids and DuoNebs, patient was given an IV, given 2 g of mag IV, 1 L fluid bolus, initiated on continuous albuterol inhaler. CBC CMP ordered. Patient is on continuous albuterol for approximately an hour and a half. On reassessment, patient reports symptomatic improvement. Mild wheezing noted bilaterally after nebs finished. On further reassessment, over 2 hours after the end of her albuterol nebulizer, patient reports that she continues to feel well and feels appropriate for discharge. I had encouraged her to stay and continue to be monitored for her asthma exacerbation and pneumonia, but she reported that she has short home and prefer to be discharged at all possible. I had extensive discussion with patient regarding return precautions. Recommend she follow-up PCP immediately. Discharge patient with prescription for Augmentin and azithromycin for coverage of community-acquired pneumonia as well as albuterol inhaler and nebulizer solution and prednisone for acute asthma exacerbation. I discussed with patient breast-feeding considerations. Procedures Risk/Benefits of Procedure(s) Were Explained: Yes Critical Care Critical Care Time Critical Care Time: Yes Attestation: On 11/17/23, the high probability of a clinically significant, sudden or life threatening deterioration of the following system(s) respiratory required my full and direct attention, intervention and personal management. The time I documented below is in addition to time spent performing reported procedures but includes the following listed in this critical care notation. Total Time Total Critical Care Time: 70
[2023-11-17] MEDS: ACETAMINOPHEN 500MG TAB 1000 MG PO (15:59)
[2023-11-17] MEDS: DEXAMETHASONE 4MG TABLET 10 MG PO (17:11)
[2023-11-17] MEDS: IPRATROPIUM/ALBUTEROL 3 ML NEB 9 ML IH (17:11)
[2023-11-17 17:34] LABS: Coronavirus 19, PCR Not Detected (NotDetected); Influenza A, PCR Not Detected (NotDetected); Influenza B, PCR Not Detected (NotDetected)
[2023-11-17] MEDS: AZITHROMYCIN 250MG TABLET 500 MG PO (17:49)
[2023-11-17] MEDS: AMOXICILLIN/CLAVULANATE POTASSIUM 875/125MG TABLET 1 EACH PO (17:49)
[2023-11-17] MEDS: MAGNESIUM SULFATE IN WATER 2 GM/50 ML PIGGYBACK IV (18:23)
[2023-11-17 18:40] LABS: Basophils % 0.3 % (0.1-2.0); Eosinophils # 0.1 K/mm3 (0.0-0.4); Eosinophils % 0.5 % (0.1-12.0); Hematocrit 40.8 % (37.0-47.0); Hemoglobin 13.8 g/dL (12.2-16.2); Lymphocytes # 2.5 K/mm3 (0.7-4.5); Lymphocytes % 21.2 % (10-50); Mean Corpuscular HGB Conc 33.7 g/dL (31.8-35.4); Mean Corpuscular Hemoglobin 31.2 pg (27.0-31.2); Mean Corpuscular Volume 92.7 fl (81-99); Monocytes # 0.5 K/mm3 (0.1-1.0); Neutrophils # 8.8 K/mm3 (1.8-7.8); Platelet Count 273 K/mm3 (142-424); Red Cell Distribution Width 12.7 % (11.5-17.5); White Blood Count 11.8 K/mm3 (4.8-10.8)
[2023-11-17 18:43] LABS: Chloride 101 mmol/L (98-107); Potassium 3.1 mmoL/L (3.5-5.1); Sodium 139 mmol/L (136-145)
--- NOTE | 2023-11-17 18:44 | PC.NURSE ---
RT at BS
[2023-11-17 18:45] LABS: Alanine Aminotransferase 84 U/L (12-78); Blood Urea Nitrogen 8 mg/dl (7-17); Creatinine Clearance Estimated 236 mL/min (50-200); Estimated Glomerular Filt Rate 122 ml/min (>60); GFR (African American) 147 ML/MIN (>60)
[2023-11-17 18:46] LABS: Albumin Level 4.2 g/dl (3.5-5.0); Albumin/Globulin Ratio 1.1 (1.1-1.8); Alkaline Phosphatase 139 U/L (38-126); Anion Gap 14.1 mEq/L (5-15); Aspartate Amino Transferase 44 U/L (14-36); Bilirubin,Total 0.5 mg/dl (0.2-1.3); Carbon Dioxide 27 mmol/L (22.0-30.0); Glucose 117 mg/dl (74-100); Total Protein,Serum 8.2 g/dl (6.3-8.2)
[2023-11-17] MEDS: ALBUTEROL 0.083% 2.5 MG/3 ML NEB 20 MG IH (18:46)
[2023-11-17 18:50] LABS: VBG Base Excess -2.7 mmol/L (-2.4-2.3); VBG HCO3 22.3 mmol/L (23-30); VBG Oxygen Saturation 65.8 % (50-70); VBG PCO2 38.2 mmol/L (35-51); VBG PH 7.39 mmol/L (7.31-7.41); VBG PO2 33.9 mmol/L (28-40); VBG Total CO2 23.5 mmol/L (23-27)
--- NOTE | 2023-11-17 18:59 | PC.NURSE ---
Pt not hooked up to vitals at this time due to using a breast pump
--- NOTE | 2023-11-17 19:25 | PC.NURSE ---
Patient resting with no needs at this time.
[2023-11-17 19:30] VITALS: BP 129/70; PULSE 120; O2SAT 96
[2023-11-17 20:00] VITALS: BP 130/67; PULSE 122; O2SAT 93
[2023-11-17 20:31] VITALS: BP 116/51; PULSE 126; O2SAT 91
--- NOTE | 2023-11-17 20:56 | PC.NURSE ---
rounded on patient, no needs at this time, call light within reach
[2023-11-17 23:04] VITALS: BP 131/68; PULSE 110; RESP 18; TEMP 36.6; O2SAT 94
[2023-11-17] MEDS: ALBUTEROL-HFA 90MCG/PUFF INHALER 8GM 2 PUFF IH (23:05)
[2023-11-17] MEDS: AEROCHAMBER/OPTIHALER 1 UNIT MC (23:06)
--- NOTE | 2023-11-21 09:27 | PC.NURSE ---
sputum culture show few negative rods, few gram + cocci and rare gram variable cocci, pt dc with augmentin and azithromycin, NTD per Dr. Lakhani
== END 2023-11-17 23:09 | disposition home or self-care (01) ==
PROVIDERS: Emergency Provider Emergency Medicine; PCP Nurse Practitioner Family
DX: J45.901 Unspecified asthma with (acute) exacerbation (principal); J18.9 Pneumonia, unspecified organism; I10 Essential (primary) hypertension; F17.210 Nicotine dependence, cigarettes, uncomplicated
CPT/HCPCS: 71046; 80053; 82803; 85025; 87040; 87070; 87205; 87636; 96365; 99291; J3475

== ENCOUNTER 2023-12-27 18:50 | Emergency (ER) | payer OTHER, SELFPAY ==
[2023-12-27 19:10] VITALS: BP 138/74; PULSE 117; RESP 20; TEMP 37.2; O2SAT 98; BMI 36.0
[2023-12-27 19:26] LABS: UTC Strep Screen (Rapid) Positive (Negative)
[2023-12-27 19:28] VITALS: BP 138/74; PULSE 117; RESP 20; TEMP 37.2; O2SAT 98
--- NOTE | 2023-12-27 19:46 | EXP.UTC ---
Discharge Plan Disposition Patient Disposition: Home, Self-Care Condition: Good Prescriptions Prescriptions: New azithromycin 500 mg tablet 500 mg PO DAILY 5 Days Qty: 5 0RF Referrals Follow up/Referrals: Leonora Wade APRN [Primary Care Provider] - See instructions Clinical Impressions Clinical Impression: Streptococcal sore throat Instructions Patient Instructions: DI for Strep Throat Discharge ED Provider: Khloe Verde [facility] [place] HPI General Stated complaint: sore throat, fever Mode of Arrival: Ambulatory Source of Information: Patient Limitations: No Limitations Time Seen by Provider: 12/27/23 19:25 Description of Symptoms (Recalled from Triage Doc. by RN): PATIENT C/O SORE THROAT, FEVER AND BODY ACHES THAT STARTED THIS MORNING HEENT Symptoms (Recalled from RN notes): Yes Resp Symptoms (Recalled from RN notes): No Skin Symptoms (Recalled from RN notes): No MS Symptoms (Recalled from RN notes): No Functional Status (Recalled from RN notes): WNL History of Present Illness Provider Complaint: Pt relates that she has had a sore throat, body aches, and fever that started this morning. She has taken Tylenol for her symptoms. Related Data Previous Rx's Medication Instructions Recorded azithromycin 500 mg tablet 500 mg PO DAILY 5 days #5 tabs 12/27/23 Allergies Allergy/AdvReac Type Severity Reaction Status Date / Time blueberry Allergy Verified 11/18/23 13:24 cat dander Allergy Verified 11/18/23 13:24 dog dander Allergy Verified 11/18/23 13:24 house dust Allergy Verified 11/18/23 13:24 codfish Allergy Uncoded 11/18/23 13:24 Worker's Comp Is this a Worker's Comp case?: No [facility] Disclaimer: The information contained in this section may have been updated after the patient was seen, as this information can be updated by other users. Medical History Anxiety Asthma Asthma exacerbation Asthma with exacerbation Bronchitis Crush injury to finger Cystitis Depression Exposure to COVID-19 virus Fatigue Gastroenteritis Herpes genitalis History of chlamydia Hypertension Marginal insertion of umbilical cord affecting management of mother Nausea Nausea vomiting and diarrhea Negative test Non-compliance Pilonidal abscess Positive urine drug screen [facility]C 11/26/22 Right upper quadrant abdominal pain Sinusitis Sprain of left foot Upper respiratory disease URI (upper respiratory infection) UTI (urinary tract infection) UTI (urinary tract infection) Viral syndrome Vulvar lesion Surgical History [place] teeth extracted Family History Other No significant family history Social History Smoking Status: Current every day smoker tobacco type: cigarettes packs per day: 1 second hand exposure: Yes alcohol intake: former substance use type: denies use current occupational status: employed Travel in the last 8 weeks: None housing: house ROS Obtained: Yes All systems reviewed & no additional complaints except as documented Constitutional Constitutional: Reports system reviewed and no additional complaints, except as documented, Reports fever(s) and Reports malaise Eyes Eyes: Reports system reviewed and no additional complaints, except as documented ENT Ears, Nose, Mouth, and Throat: Reports system reviewed and no additional complaints, except as documented, Reports odynophagia and Reports sore throat Cardiovascular Cardiovascular: Reports system reviewed and no additional complaints, except as documented Respiratory Respiratory: Reports system reviewed and no additional complaints, except as documented Gastrointestinal Gastrointestingal: Reports system reviewed and no additional complaints, except as documented and odynophagia Genitourinary Female Genitourinary: Reports system reviewed and no additional complaints, except as documented Musculoskeletal Musculoskeletal: Reports system reviewed and no additional complaints, except as documented Integumentary/Breasts Skin/Breast: Reports system reviewed and no additional complaints, except as documented Neurologic Neurologic: Reports system reviewed and no additional complaints, except as documented Endocrine Endocrine: Reports system reviewed and no additional complaints, except as documented Hematologic/Lymphatic Henatologic/Lymphatic: Reports system reviewed and no additional complaints, except as documented Allergic/Immunologic Allergic/Immunologic: Reports system reviewed and no additional complaints, except as documented Physical Exam General General appearance: alert and in no apparent distress Head Head exam: atraumatic and normocephalic Eye Eye exam: Present normal appearance Expanded ENT Exam External ear exam: Present normal external inspection Nose exam: Absent sinus tenderness Nasal speculum exam: Bilateral: normal Mouth exam: Present normal external inspection and tongue normal Teeth exam: Present normal inspection Throat exam: Present tonsillar erythema, tonsillomegaly and tonsillar exudate Neck Neck exam: Present lymphadenopathy Chest Chest inspection: Present normal inspection and symmetric chest wall rise Respiratory Respiratory exam: Present normal lung sounds bilaterally Cardiovascular Cardiovascular exam: Present normal rhythm, tachycardia and normal heart sounds Abdominal Exam Abdominal exam: Present soft and normal bowel sounds Extremities Exam Extremities exam: Present normal inspection Back Exam Back exam: Present normal inspection Neurological Exam Neurological exam: Present alert and oriented X3 Psychiatric Psychiatric exam: Present normal affect and normal mood Skin Skin exam: Present warm, dry and intact Lymphatic Lymphatic Findings: no adenopathy Medical Decision Making Delmer Inquiry Pt receiving controlled substance: No Delmer was queried for this patient: No Vital Signs: 12/27/23 19:10 12/27/23 19:28 Temperature 99.0 F 99.0 F Temperature Source Oral Pulse Rate 117 H Pulse Rate [Left Brachial] 117 H Respiratory Rate 20 20 Blood Pressure 138/74 Blood Pressure [Left Arm] 138/74 Blood Pressure Mean [Left Arm] 95 Blood Pressure Source [Left Arm] Automatic Cuff Blood Pressure Position [Left Arm] Sitting 02 Sat by Pulse Oximetry 98 Oxygen Delivery Method Room Air Lab Data Lab Results 12/27/23 19:17: Strep Scn Rapid Clinic Positive A
== END 2023-12-27 19:58 | disposition home or self-care (01) ==
PROVIDERS: Emergency Provider Nurse Practitioner Family; PCP Nurse Practitioner Family
DX: J02.0 Streptococcal pharyngitis (principal); R07.0 Pain in throat; R50.9 Fever, unspecified; F17.210 Nicotine dependence, cigarettes, uncomplicated
CPT/HCPCS: 87880; 99212; 99214; G0463

== ENCOUNTER 2024-02-16 15:59 | Emergency (ER) | payer OTHER, SELFPAY ==
[2024-02-16 16:07] VITALS: BP 139/74; PULSE 136; RESP 18; TEMP 39.4; O2SAT 94; BMI 37.5
--- NOTE | 2024-02-16 16:11 | ED_ITS ---
<Statement entered by West Kirk MD - 02/16/24 22:24> I was consulted by the LOBITO, and we discussed the complexity of the problems being addressed. I approved the treatment and management plan for this patient's care in the emergency department, thus performing a substantive portion of the medical decision making. West Kirk MD, ASHLI, FACEP Discharge Plan Disposition Patient Disposition: Home, Self-Care Condition: Good Prescriptions Prescriptions: New cephalexin 500 mg capsule 500 mg PO QID 10 Days Qty: 40 0RF No Action Mirena 21 mcg/24 hours (8 yrs) 52 mg intrauterine device 1 device intrauterine albuterol sulfate 1.25 mg/3 mL solution for nebulization 1.25 mg continuous nebulization Patient Comments: USE 1 VIAL IN NEBULIZER EVERY 6 HOURS NEEDED FOR BRONCHOSPASM albuterol sulfate 90 mcg/actuation HFA aerosol inhaler inhalation Patient Comments: INHALE 2 PUFFS BY MOUTH EVERY 4 HOURS NEEDED FOR SHORTNESS OF BREATH OR WHEEZING Referrals Follow up/Referrals: Valencia Gleason APRN [Primary Care Provider] - See instructions Activity Restrictions/Add. Instructions Additional Instructions/Restrictions: Please take Tylenol alternating every 4 hours with Motrin for constitutional symptoms including fever body aches etc. Please follow-up closely with your primary care physician or [facility] for any change in your symptoms. Please return to ER as needed for any worsening signs or symptoms. Clinical Impressions Clinical Impression: Nonpurulent mastitis associated with Stand Alone Forms Stand Alone Forms: Work/School Release Discharge ED Provider: West Kirk General Adult HPI <DINA Jean - Last Filed: 02/16/24 17:34> General Chief complaint: Fever Stated complaint: possible sepsis/mastitus sent from [facility] main Time Seen by Provider: 02/16/24 16:11 History of Present Illness HPI narrative: Patient presents for right breast pain and fever. Patient states that her right breast has been feeling full and engorged for 2 to 3 days however she began developing tachycardia shortness of breath and bodyaches this morning after she got up. She states her fever was high as 103. Patient denies cough chest pain hemoptysis hematochezia melena nausea vomiting diarrhea. She is 8 months and is currently breast-feeding. Patient also states that her right nipple is cracked and sore for approximately a week. Related Data Home Medications Medication Instructions Recorded Confirmed albuterol sulfate 1.25 mg/3 mL 1.25 mg continuous nebulization 01/07/24 02/16/24 solution for nebulization albuterol sulfate 90 mcg/actuation inhalation 01/07/24 02/16/24 aerosol inhaler levonorgestrel 21 mcg/24 hours (8 1 device intrauterine 01/07/24 02/16/24 yrs) 52 mg intrauterine device (Mirena) Previous Rx's Medication Instructions Recorded cephalexin 500 mg capsule 500 mg PO QID 10 days #40 caps 02/16/24 Allergies Allergy/AdvReac Type Severity Reaction Status Date / Time blueberry Allergy Verified 02/16/24 15:03 cat dander Allergy Verified 02/16/24 15:03 dog dander Allergy Verified 02/16/24 15:03 house dust Allergy Verified 02/16/24 15:03 codfish Allergy Uncoded 02/16/24 15:03 [facility] <DINA Jean - Last Filed: 02/16/24 17:34> [facility] Disclaimer: The information contained in this section may have been updated after the patient was seen, as this information can be updated by other users. Medical History Streptococcal sore throat Pneumonia Upper respiratory infection Marginal insertion of umbilical cord affecting management of mother Cystitis URI (upper respiratory infection) Hypertension Positive urine drug screen [facility]C 11/26/22 UTI (urinary tract infection) UTI (urinary tract infection) Depression Anxiety Asthma Pilonidal abscess Asthma with exacerbation Negative test Nausea vomiting and diarrhea Sprain of left foot Viral syndrome Exposure to COVID-19 virus History of chlamydia Herpes genitalis Diarrhea Nausea Sinusitis Bronchitis Fatigue Right upper quadrant abdominal pain Crush injury to finger Vulvar lesion Gastroenteritis Non-compliance Upper respiratory disease Asthma exacerbation Surgical History [place] teeth extracted Family History Other No significant family history Social History Smoking Status: Current every day smoker tobacco type: cigarettes packs per day: 1 second hand exposure: Yes alcohol intake: former substance use type: denies use current occupational status: employed Travel in the last 8 weeks: None housing: house <DINA Jean - Last Filed: 02/16/24 17:34> ROS Obtained: Yes Systems reviewed as appropriate & no additional complaints except as documented Physical Exam <DINA Jean - Last Filed: 02/16/24 17:34> General General appearance: alert and in no apparent distress ENT ENT exam: Present normal exam and normal oropharynx Chest Chest inspection: Present normal inspection and symmetric chest wall rise Respiratory Respiratory exam: Present normal lung sounds bilaterally; Absent respiratory distress Cardiovascular Cardiovascular exam: Present normal rhythm, tachycardia, normal heart sounds, +S1 and +S2 Abdominal Exam Abdominal exam: Present soft and normal bowel sounds; Absent tenderness Extremities Exam Extremities exam: Present normal inspection and full ROM Neurological Exam Neurological exam: Present alert and oriented X3 Skin Skin exam: Present warm, dry and normal color Other Other exam information: Patient is tender to palpation at the right nipple and in the 6:00 quadrant of the right breast. I do not feel any induration fluctuance and I do not see any erythema or edema noted. There is no purulent discharge from the nipple. Medical Decision Making <DINA Jean - Last Filed: 02/16/24 17:34> Medical Records Medical records reviewed: Yes I reviewed the patient's medical records. [place] Inquiry Pt receiving controlled substance: No Vital Signs: 02/16/24 16:07 02/16/24 17:14 Temperature 103.0 F H Temperature Source Oral Pulse Rate 123 H Pulse Rate [Right Radial] 136 H Respiratory Rate 18 Blood Pressure 120/71 Blood Pressure [Right Arm] 139/74 Blood Pressure Mean [Right Arm] 95 Blood Pressure Source [Right Arm] Automatic Cuff Blood Pressure Position [Right Arm] Sitting 02 Sat by Pulse Oximetry 94 L 96 Oxygen Delivery Method Room Air Room Air Lab Data Lab results reviewed: Yes I reviewed the patient's lab results. Lab Results 02/16/24 16:09: SARS-CoV-2 (PCR) Not detected, Influenza A Untype (PCR) Not detected, Influenza Type B (PCR) Not detected 02/16/24 16:10: WBC 10.7, RBC 4.44, Hgb 13.9, Hct 41.3, MCV 93.1, MCH 31.4 H, MCHC 33.7, RDW 14.1, Plt Count 212, MPV 10.0, Neut % (Auto) 88.4 H, Lymph % (Auto) 6.7 L, [place] % (Auto) 4.1, Eos % (Auto) 0.5, Baso % (Auto) 0.4, Neut # (Auto) 9.5 H, Lymph # (Auto) 0.7, [place] # (Auto) 0.4, Eos # (Auto) 0.1, Baso # (Auto) 0.0, Total Counted 100, Neutrophils % (Manual) 83 H, Lymphocytes % (Manual) 16, Monocytes % (Manual) 1 L, Platelet Estimate Normal, RBC Morphology Normal, D-Dimer 0.56 H, Sodium 138, Potassium 3.8, Chloride 104, Carbon Dioxide 25, Anion Gap 12.8, BUN 12, Creatinine 0.70, Estimated Creat Clear 211, Estimated GFR 102, Est GFR ( Amer) 123, Glucose 115 H, Calcium 9.8, Total Bilirubin 0.7, AST 41 H, ALT 28, Alkaline Phosphatase 74, Troponin I < 0.01, Total Protein 8.1, Albumin 4.5, Globulin 3.6 H, Albumin/Globulin Ratio 1.3, Serum HCG, Qual Negative 02/16/24 16:30: Lactate 1.5 02/16/24 16:10 02/16/24 16:10 Orders (Tests/Meds): ED MEDICATIONS Generic Name Dose Route Start Last Admin Trade Name Freq PRN Reason Stop Dose Admin Sodium Chloride 10 ml 02/16/24 16:13 Sodium Chloride 0.9% 10ml Flush Syringe IV 03/17/24 16:12 NEEDED PRN Maintain IV Site Discontinued Medications Generic Name Dose Route Start Last Admin Trade Name Freq PRN Reason Stop Dose Admin Acetaminophen 1,000 mg 02/16/24 16:17 02/16/24 16:20 Acetaminophen 1,000mg/100ml Vial IV 02/16/24 16:18 1,000 mg ONCE ONE Administration Sodium Chloride 500 mls @ 999 mls/hr 02/16/24 16:12 02/16/24 16:20 Sod Chlor 0.9% 1000ml Bag IV 02/16/24 16:42 999 mls/hr .Q31M ONE Administration ORDERS Category Date Time Status POCUS Point of Care (ER Only) Stat Exams 02/16/24 16:23 Completed XR chest 2V Stat Exams 02/16/24 16:23 Taken Complete Blood Count Auto Diff Stat Lab 02/16/24 16:10 Completed Comprehensive Metabolic Panel Stat Lab 02/16/24 16:10 Completed D-Dimer Stat Lab 02/16/24 16:10 Completed Lactic Acid Stat Lab 02/16/24 16:30 Completed Rapid PCR Covid and Flu A/B Stat Lab 02/16/24 16:09 Completed Serum Beta HCG [HCG Qualitative, Serum] Stat Lab 02/16/24 16:10 Completed Troponin I Q3H Lab 02/16/24 19:30 Ordered Troponin I Q3H Lab 02/16/24 22:30 Ordered Troponin I Stat Lab 02/16/24 16:10 Completed Blood Culture Stat Micro 02/16/24 16:30 Received Wound Culture and Gram Stain Stat Micro 02/16/24 16:26 Ordered Medical Decision Narrative: In summary patient is a 23-year-old female who presents to the emergency department for evaluation of fever, constitutional symptoms and right breast pain. Patient is normotensive tachycardic satting at 94% on room air with a respiratory rate of 18 upon arrival, and febrile to 103.0. Physical exam is remarkable for inferior right breast tenderness without any evidence of abscess formation erythema induration or edema. Right nipple appears to be cracked but there does not appear to be any purulent discharge in or around the nipple.. Differential diagnosis includes mastitis, bacteremia, other viral or bacterial infection including flu or COVID, PE, ACS etc.. Initial workup will be conducted with blood cultures hematologic labs plain film chest x-ray twelve- lead EKG. Initial interventions include crystalloid bolus, Tylenol. Initial workup reviewed by me shows an elevated but normal white count with an absolute neutrophil count of 9.5, negative troponin, normal chest x-ray, EKG shows sinus tachycardia on the bedside monitor, and the remainder of her laboratory investigations are nonactionable including negative COVID and flu. Upon repeat evaluation patient reports subjective improvement and her constitutional symptoms. Patient's tachycardia has been sustained under 110 after fluid bolus. Patient has defervesced to a temperature of 101.6. Given this patient is appropriate for discharge home with close follow-up and return for any worsening symptoms. Patient verbalized understanding and agreement. <West Kirk MD - Last Filed: 02/16/24 16:57> Vital Signs: 02/16/24 16:07 02/16/24 17:14 Temperature 103.0 F H Temperature Source Oral Pulse Rate 123 H Pulse Rate [Right Radial] 136 H Respiratory Rate 18 Blood Pressure 120/71 Blood Pressure [Right Arm] 139/74 Blood Pressure Mean [Right Arm] 95 Blood Pressure Source [Right Arm] Automatic Cuff Blood Pressure Position [Right Arm] Sitting 02 Sat by Pulse Oximetry 94 L 96 Oxygen Delivery Method Room Air Room Air Lab Data Lab Results 02/16/24 16:09: SARS-CoV-2 (PCR) Not detected, Influenza A Untype (PCR) Not detected, Influenza Type B (PCR) Not detected 02/16/24 16:10: WBC 10.7, RBC 4.44, Hgb 13.9, Hct 41.3, MCV 93.1, MCH 31.4 H, MCHC 33.7, RDW 14.1, Plt Count 212, MPV 10.0, Neut % (Auto) 88.4 H, Lymph % (Auto) 6.7 L, [place] % (Auto) 4.1, Eos % (Auto) 0.5, Baso % (Auto) 0.4, Neut # (Auto) 9.5 H, Lymph # (Auto) 0.7, [place] # (Auto) 0.4, Eos # (Auto) 0.1, Baso # (Auto) 0.0, Total Counted 100, Neutrophils % (Manual) 83 H, Lymphocytes % (Manual) 16, Monocytes % (Manual) 1 L, Platelet Estimate Normal, RBC Morphology Normal, D-Dimer 0.56 H, Sodium 138, Potassium 3.8, Chloride 104, Carbon Dioxide 25, Anion Gap 12.8, BUN 12, Creatinine 0.70, Estimated Creat Clear 211, Estimated GFR 102, Est GFR ( Amer) 123, Glucose 115 H, Calcium 9.8, Total Bilirubin 0.7, AST 41 H, ALT 28, Alkaline Phosphatase 74, Troponin I < 0.01, Total Protein 8.1, Albumin 4.5, Globulin 3.6 H, Albumin/Globulin Ratio 1.3, Serum HCG, Qual Negative 02/16/24 16:30: Lactate 1.5 Orders (Tests/Meds): ED MEDICATIONS Generic Name Dose Route Start Last Admin Trade Name Freq PRN Reason Stop Dose Admin Sodium Chloride 10 ml 02/16/24 16:13 Sodium Chloride 0.9% 10ml Flush Syringe IV 03/17/24 16:12 NEEDED PRN Maintain IV Site Discontinued Medications Generic Name Dose Route Start Last Admin Trade Name Omar PRN Reason Stop Dose Admin Acetaminophen 1,000 mg 02/16/24 16:17 02/16/24 16:20 Acetaminophen 1,000mg/100ml Vial IV 02/16/24 16:18 1,000 mg ONCE ONE Administration Sodium Chloride 500 mls @ 999 mls/hr 02/16/24 16:12 02/16/24 16:20 Sod Chlor 0.9% 1000ml Bag IV 02/16/24 16:42 999 mls/hr .Q31M ONE Administration ORDERS Category Date Time Status POCUS Point of Care (ER Only) Stat Exams 02/16/24 16:23 Completed XR chest 2V Stat Exams 02/16/24 16:23 Taken Complete Blood Count Auto Diff Stat Lab 02/16/24 16:10 Completed Comprehensive Metabolic Panel Stat Lab 02/16/24 16:10 Completed D-Dimer Stat Lab 02/16/24 16:10 Completed Lactic Acid Stat Lab 02/16/24 16:30 Completed Rapid PCR Covid and Flu A/B Stat Lab 02/16/24 16:09 Completed Serum Beta HCG [HCG Qualitative, Serum] Stat Lab 02/16/24 16:10 Completed Troponin I Q3H Lab 02/16/24 19:30 Ordered Troponin I Q3H Lab 02/16/24 22:30 Ordered Troponin I Stat Lab 02/16/24 16:10 Completed Blood Culture Stat Micro 02/16/24 16:30 Received Wound Culture and Gram Stain Stat Micro 02/16/24 16:26 Ordered ECG Data Tracing #1: I reviewed this ECG and interpreted as documented below: Ventricular rate of 124 sinus tachycardia normal axis no acute ischemic changes noted no significant conduction abnormalities Procedures <West Kirk MD - Last Filed: 02/16/24 16:57> Miscellaneous Procedure Procedure Performed: Limited soft tissue ultrasound Indication: Breast tenderness fever etc. Identified structures: Location: Right breast Findings: Normal soft tissue ultrasound no evidence of cobblestoning or localized fluid collection Impression: Normal soft tissue ultrasound Images were saved to permanent archive The study was technically adequate Soft Tissue CPT Codes: Breast [id number](limited), This study was performed by me, and I personally interpreted all images/videos. Based on my clinical judgement, these images were adequate and did not necessitate further imaging. Critical Care <DINA Jena - Last Filed: 02/16/24 17:34> Critical Care Time Critical Care Time: No
--- NOTE | 2024-02-16 16:19 | ECG_ITS ---
APPROVED REPORT Exam: Resting ECG HR:124 bpm ECG Measurements Heart Rate 124 AXES AZ 116 P 74 QRSd 89 QRS 77 QT 306 T 53 QTc 380 Conclusion SINUS TACHYCARDIA WITH SHORT AZ INTERVAL NONSPECIFIC ST & T-WAVE ABNORMALITY ABNORMAL RHYTHM ECG UNCONFIRMED REPORT Electronically signed by : Gerardo Kirk, 02/16/2024 22:35:02
[2024-02-16] MEDS: ACETAMINOPHEN 1,000MG/100ML VIAL 1000 MG IV (16:20)
[2024-02-16] MEDS: 0.9 % SODIUM CHLORIDE 1000ML 500 ML 999 ML IV (16:20)
--- NOTE | 2024-02-16 16:23 | XR_ITS ---
PROCEDURE INFORMATION: Exam: XR Chest Exam date and time: 02/16/2024 4:49 PM Age: 23 years old Clinical indication: Fever and other: Weakness TECHNIQUE: Imaging protocol: Radiologic exam of the chest. Views: 2 views. COMPARISON: CR XR CHEST 2V 11/17/2023 4:46 PM FINDINGS: Lungs: Unremarkable. No consolidation. Pleural spaces: Unremarkable. No pleural effusion. No pneumothorax. Heart/Mediastinum: Unremarkable. No cardiomegaly. Bones/joints: Unremarkable. IMPRESSION: No acute findings.
[2024-02-16 16:30] LABS: Coronavirus 19, PCR Not Detected (NotDetected); Influenza A, PCR Not Detected (NotDetected); Influenza B, PCR Not Detected (NotDetected)
[2024-02-16 16:32] LABS: Basophils % 0.4 % (0.1-2.0); Eosinophils # 0.1 K/mm3 (0.0-0.4); Eosinophils % 0.5 % (0.1-12.0); Hematocrit 41.3 % (37.0-47.0); Hemoglobin 13.9 g/dL (12.2-16.2); Lymphocytes # 0.7 K/mm3 (0.7-4.5); Lymphocytes % 6.7 % (10-50); MANUAL DIFFERENTIAL MANUAL DIFFERENTIAL (MANUAL DIFF); Mean Corpuscular HGB Conc 33.7 g/dL (31.8-35.4); Mean Corpuscular Hemoglobin 31.4 pg (27.0-31.2); Mean Corpuscular Volume 93.1 fl (81-99); Monocytes # 0.4 K/mm3 (0.1-1.0); Monocytes % 4.1 % (1.7-9.3); Neutrophils # 9.5 K/mm3 (1.8-7.8); Neutrophils % 88.4 % (37.0-80.0); Platelet Count 212 K/mm3 (142-424); Red Blood Count 4.44 M/mm3 (4.20-5.40); Red Cell Distribution Width 14.1 % (11.5-17.5); White Blood Count 10.7 K/mm3 (4.8-10.8)
[2024-02-16 16:42] LABS: HCG Qualitative, Serum Negative (Negative)
[2024-02-16 16:43] LABS: Alanine Aminotransferase 28 U/L (12-78); Albumin Level 4.5 g/dl (3.5-5.0); Albumin/Globulin Ratio 1.3 (1.1-1.8); Alkaline Phosphatase 74 U/L (38-126); Anion Gap 12.8 mEq/L (5-15); Aspartate Amino Transferase 41 U/L (14-36); Bilirubin,Total 0.7 mg/dl (0.2-1.3); Blood Urea Nitrogen 12 mg/dl (7-17); Calcium 9.8 mg/dl (8.4-10.2); Carbon Dioxide 25 mmol/L (22.0-30.0); Chloride 104 mmol/L (98-107); Creatinine Clearance Estimated 211 mL/min (50-200); Estimated Glomerular Filt Rate 102 ml/min (>60); GFR (African American) 123 ML/MIN (>60); Globulin 3.6 g/dL (1.3-3.2); Glucose 115 mg/dl (74-100); Potassium 3.8 mmoL/L (3.5-5.1); Sodium 138 mmol/L (136-145); Total Protein,Serum 8.1 g/dl (6.3-8.2)
[2024-02-16 16:48] LABS: D-Dimer 0.56 ug/mL (0.0-0.5)
[2024-02-16 17:01] LABS: Lymphocytes % 16 % (10-50); Monocytes % 1 % (2-9); Neutrophils % 83 % (42-76); Platelet Estimate Normal; RBC Morphology Normal; Total Cells Counted 100
[2024-02-16 17:04] LABS: Lactic Acid 1.5 mmol/L (0.7-2.1)
[2024-02-16 17:05] LABS: Troponin I < 0.01 ng/ml (0.00-0.034)
[2024-02-16 17:14] VITALS: BP 120/71; PULSE 123; O2SAT 96
--- NOTE | 2024-02-16 17:17 | PC.NURSE ---
Mayito ODEN at BS to update pt on POC
[2024-02-16 17:30] VITALS: BP 115/67; PULSE 113; TEMP 38.7; O2SAT 95
[2024-02-16] MEDS: cephALEXin 500MG CAPSULE 500 MG PO (17:32)
--- NOTE | 2024-02-16 17:39 | PC.NURSE ---
Called [facility] pharmacy to see if pt can still breast-feed while taking Keflex. Tan stated its safe to take and breast-feed. It will cross into her milk but it is safe. If she wants to dump, it will peak in 1 hr so dump for 2 hrs after taking . Pt updated on this information.
--- NOTE | 2024-02-16 17:43 | PC.NURSE ---
Gave pt another water and snack.
[2024-02-16 18:00] VITALS: BP 117/66; PULSE 112; O2SAT 95
[2024-02-16 18:16] VITALS: BP 117/66; PULSE 110; RESP 18; TEMP 37.6; O2SAT 98
== END 2024-02-16 18:16 | disposition home or self-care (01) ==
PROVIDERS: Physician Assistant; Emergency Provider Student in an Organized Health Care Education/Training Program; PCP Nurse Practitioner Family
DX: O91.23 Nonpurulent mastitis associated with lactation (principal); R00.0 Tachycardia, unspecified; R50.9 Fever, unspecified; R06.02 Shortness of breath; F17.210 Nicotine dependence, cigarettes, uncomplicated
CPT/HCPCS: 71046; 80053; 83605; 84484; 84703; 85007; 85025; 85378; 87040; 87636; 93005; 96374; 99285; J0131

== ENCOUNTER 2024-09-20 16:12 | Outpatient (CLI) | payer OTHER, SELFPAY ==
[2024-09-20 16:21] LABS: Coronavirus 19, PCR Not Detected (NotDetected); Influenza B, PCR Not Detected (NotDetected)
[2024-09-20 17:09] LABS: Influenza A, PCR Detected (NotDetected)
== END 2024-09-20 23:59 | disposition home or self-care (01) ==
LOC: LAB 16:13
PROVIDERS: PCP Student in an Organized Health Care Education/Training Program; Visit Provider Student in an Organized Health Care Education/Training Program
DX: R09.81 Nasal congestion (principal); R50.9 Fever, unspecified; R05.9 Cough, unspecified
CPT/HCPCS: 87636

== ENCOUNTER 2024-12-03 07:09 | Outpatient (CLI) | payer OTHER, SELFPAY ==
[2024-12-03 17:51] LABS: Coronavirus 19, PCR Not Detected (NotDetected); Influenza A, PCR Not Detected (NotDetected); Influenza B, PCR Not Detected (NotDetected)
== END 2024-12-03 23:59 | disposition home or self-care (01) ==
LOC: LAB.DROPOF 12-04 07:09
PROVIDERS: PCP Student in an Organized Health Care Education/Training Program; Visit Provider Student in an Organized Health Care Education/Training Program
DX: J02.9 Acute pharyngitis, unspecified (principal); R09.81 Nasal congestion; Z72.0 Tobacco use
CPT/HCPCS: 87070; 87636

== ENCOUNTER 2024-12-24 07:50 | Outpatient (CLI) | payer OTHER, SELFPAY ==
[2024-12-24 07:55] LABS: Anti-Centromere B Antibodies ND; Anti-Jo-1 ND; Antichromatin Antibodies ND; Antiscleroderma-70 Antibodies ND; RNP Antibodies ND; Sjogren's Anti-SS-A ND; Sjogren's Anti-SS-B ND
[2024-12-24 09:07] LABS: Cholesterol 173 mg/dl (140-200); HDL Cholesterol 43 mg/dl (40-60); Magnesium 1.7 mg/dl (1.6-2.3); Triglycerides 90 mg/dl (30-150); VLDL Cholesterol 18 mg/dL (0-40)
[2024-12-24 09:19] LABS: Direct LDL Cholesterol 92.14 mg/dL (100-129)
[2024-12-24 09:25] LABS: Free T4 (Free Thyroxine) 0.83 ng/dl (0.78-2.19); T4 (Thyroxine) 6.8 ug/dl (5.53-11.0)
[2024-12-24 09:26] LABS: 25-OH Vitamin D, Total 24.8 ng/mL (30-100)
[2024-12-24 09:58] LABS: Vitamin B12 482 pg/mL (239-931)
[2024-12-24 14:09] LABS: Thyroid Stimulating Hormone 1.69 uIU/mL (0.465-4.68)
[2024-12-24 14:13] LABS: Ferritin 16.5 ng/ml (6.24-137)
[2024-12-26 08:09] LABS: Thyroid Peroxidase Antibodies 23 IU/mL (0-34)
[2024-12-26 10:12] LABS: Insulin Level Total 12.3 uIU/mL (2.6-24.9)
[2024-12-26 15:11] LABS: Cortisol,AM 11.7 ug/dL (6.2-19.4)
[2024-12-27 13:10] LABS: Antinuclear Antibodies (ANA) Negative (Negative)
[2024-12-27 15:37] LABS: Thyroglobulin Level <1.0 IU/mL (0.0-0.9)
== END 2024-12-24 23:59 | disposition home or self-care (01) ==
LOC: LAB 07:51
PROVIDERS: PCP Nurse Practitioner Family; Visit Provider Nurse Practitioner Family
DX: R53.83 Other fatigue (principal); R63.5 Abnormal weight gain; Z68.39 Body mass index [BMI] 39.0-39.9, adult; F53.0 Postpartum depression; J45.901 Unspecified asthma with (acute) exacerbation; Z13.220 Encounter for screening for lipoid disorders
CPT/HCPCS: 36415; 80061; 82306; 82533; 82607; 82728; 83036; 83525; 83735; 84436; 84439; 84443; 86038; 86235; 86376; 86800

== ENCOUNTER 2025-01-20 15:04 | Outpatient (CLI) | payer OTHER, SELFPAY ==
[2025-01-20 16:22] VITALS: BMI 40.4
== END 2025-01-20 23:59 | disposition home or self-care (01) ==
LOC: DIETICIAN 15:04
PROVIDERS: PCP Nurse Practitioner Family; Visit Provider Nurse Practitioner Family
DX: E66.9 Obesity, unspecified (principal)
CPT/HCPCS: 97802

== ENCOUNTER 2025-01-31 08:50 | Outpatient (CLI) | payer OTHER, SELFPAY ==
[2025-01-31 15:42] LABS: Coronavirus 19, PCR Not Detected (NotDetected); Human Rhinovirus Not Detected (NotDetected); Influenza A, PCR Not Detected (NotDetected); Influenza B, PCR Not Detected (NotDetected); Respiratory Syncytial Virus Not Detected (NotDetected)
== END 2025-01-31 23:59 | disposition home or self-care (01) ==
LOC: LAB.DROPOF 02-01 12:56
PROVIDERS: PCP Nurse Practitioner; Visit Provider Nurse Practitioner
DX: J06.9 Acute upper respiratory infection, unspecified (principal)
CPT/HCPCS: 87631

== ENCOUNTER 2025-05-31 12:51 | Outpatient (CLI) | payer OTHER, SELFPAY ==
--- OUTSIDE RECORDS SUMMARY | 2025-05-31 12:53 | XMS_ITS | Clinical Summary ---
Author Organization [facility] Address [address] [place] [address] Care Team Providers Care Airplane Flight Attendant Supervisor Name Role Phone WadeCassiaTonya CLEMENT Primary Care Provider [phone] Allergies Active Allergy Reactions Criticality Noted Date Comments Blueberry Flavoring Agent (Non-Screening) Swelling Low 04/10/2022 Medications acetaminophen (TYLENOL) 325 MG tablet Take by mouth Every 6 (Six) Hours As Needed. Active albuterol sulfate HFA 108 (90 Base) MCG/ACT inhaler INHALE 2 PUFFS BY MOUTH EVERY 6 HOURS NEEDED FOR SHORTNESS OF BREATH OR WHEEZING 3 Active FeroSul 325 (65 Fe) MG tablet Take 1 tablet by mouth Daily. 3 Active promethazine (PHENERGAN) 12.5 MG tablet TAKE 1 TABLET BY MOUTH EVERY 4 TO 6 HOURS NEEDED FOR NAUSEA AND VOMITING 3 Active valACYclovir (VALTREX) 500 MG tablet TAKE 1 TABLET BY MOUTH TWICE DAILY FOR 3 DAYS THEN DECREASE TO 1 TABLET DAILY UNTIL DELIVERY 3 Active 28-0.8 MG tablet TAKE 1 TABLET BY MOUTH ONCE DAILY FOR SUPPLEMENT 3 Active Active Problems Problem Noted Date Diagnosed Date Hx of preeclampsia, prior , currently p regnant 03/12/2023 Assessment & Plan (03/12/2023 2:47 PM EDT): - Recommend patient take a daily ASA 81mgs. - Recommend collecting a baseline set of preeclampsia labs and urine protein to creatinine ratio or 24hr urine protein History of delivery, currently 03/12/2023 (spontaneous vaginal delivery) 06/08/2022 Gestational hypertension 06/05/2022 Gestational hypertension wit hout significant proteinuria during in third trimester, antepartum 05/19/2022 Nausea and vomiting 02/15/2022 Severe pre-eclampsia in third trimester 05/03/20 19 (spontaneous vaginal delivery) 05/03/2019 Resolved Problems Problem Noted Date Diagnosed Date Resolved Date Gestational hypertension, third trimester 05/01/2019 05/03/2019 Social History Tobacco Use Types Packs/Day Years Used Date Smoking Tobacco: Former Cigarettes 1 2 2 2017 Smokeless Tobacco: Never Tobacco Cessation:Counseling Given: Not Answered Alcohol Use Standard Drinks/Week Comments Never 0 (1 standard drink = 0.6 oz pur e alcohol) AUDIT-C Answer Date Recorded Frequency of Alcohol Consumption Never 05/02/2019 Average Number of Drinks Not on file 019 Frequency of Binge Drinking Not on file 04/11 [place] Depression Scale Answer Date Recorded Retired [place] Depression Score 6 06/06/2022 Retired EPD Scale: Thought of Harming Self Unrec ognized value 06/06/2022 Abuse Screen Answer Date Recorded Unsafe at Home or Work/School Not on file Feels Threatened by Someone? Not on file 10/2023 Does Anyone Keep You from Co ntacting Others or Doint Things Outside the Home? Not on file 08/21/2023 Physical Sign of Abuse Present Not on file 1 Housing Stability Answer Date Recorded Current Living Arrangements Not on file 08/10 Potentially Unsafe Housing Conditions Not on mayo e 08/21/2023 Family and Community Support Answer Mayco e Recorded Help with Day-to-Day Activities Not on file 08/21/2023 Lonely or Isolated Not on file 08/21/2023 Employment Answer Date Recorded Do you want help finding or keeping work or a zabrina b? Not on file 08/21/2023 Disabilities Answer Date Recorded Concentrating, Remembering, or Making Decisions Difficulty Not on file 08/21/2023 Doing Errands Independently Difficulty Not on fi le 08/21/2023 Education Answer Date Recorded Help with school or training? Not on file Preferred Language Not on file 08/21/2023 Education Answer Date Recorded What is the highest level of school you have completed or the highest degree you have received? High school graduate 06/05/2022 Comments No Sex and Gender Information Value Date Recorded Sex Assigned at Not on file Legal Sex Female 12:29 PM EST Gender Identity Not on file Sexual Orientation Not on file Last Filed Vital Signs Vital Sign Reading Time Taken Comments Blood Pressure 118/66 03/12/2023 10:11 AM EDT Pulse 94 06/08/2022 7:00 AM EDT Temperature 36.5 C (97.7 F) 06/08/2022 7:00 AM EDT Respiratory Rate 16 06/08/2022 7:00 AM EDT Oxygen Saturation 99% 06/07/2022 4:25 PM EDT Inhaled Oxygen Concentration - - Weight 98.7 kg (217 lb 9.6 oz) 03/12/2023 10:11 AM EDT Height 170.2 cm (5' 7 ) 06/05/2022 7:40 AM EDT Body Mass Index 34.08 06/05/2022 7:40 AM EDT Plan of Treatment Health Maintenance Due Date Last Done Comments Annual Gynecologic Pelvic an d Breast Exam 1998 ANNUAL PHYSICAL 05/29/2022 COVID-19 Vaccine ( - 2023-2 5 season) 2024 04/13/2021 INFLUENZA VACCINE 08/10/2025 11/12/2018 TDAP/TD VACCINES (2 - Td or Tdap) 04/18/2032 04/18/2022 HEPATITIS C SCREENING Completed 10/29/2021 , 10/22/2018 Pneumococcal Vaccine 0-49 Aged Out No longer eligible based on patient's age to complete this topic Procedures Procedure Name Priority Date/Time Associated Diagnosis Comments HEPATITIS C ANTIBODY Routine 10/29/2021 2:02 PM EST care, subsequent , first trimester Less than 8 weeks gestation of from Last 3 Months or Most Recently Relevant to Health Maintenance Results * Hepatitis C Antibody (10/29/2021 2:02 PM EST) Hepatitis C Ab Non-Reacti ve Non-Reacti ve 10/30/2021 12:49 AM EST [facility] Blood Venipuncture / Unknown 10/29/2021 2:02 PM EST 10/29/2021 2:03 PM EST Narrative [facility] - 10/30/2021 12:49 AM EST Results may be falsely decreased if patient taking Biotin. Beatriz WORLEY LAB BLOOD ORDERABLES nal Result [facility]
[address] [place] [address], from Last 3 Months or Most Recently Relevant to Health Maintenance Insurance [facility] Advance Directives * CPR (Attempt to Resuscitate) (Latest Code Status on File) Date Activated Date Inactivated Comments 06/06/2022 4:12 AM 06/08/2022 3:16 PM Question Answer Comments Code Status (Patient has no pulse and is not breathing): CPR (Attempt to Resuscitate) Medical Interventions (Patie nt has pulse or is breathing): Full * CPR (Attempt to Resuscitate) Date Activated Date Inactivated Comments 06/05/2022 7:58 AM 06/06/2022 4:12 AM Question Answer Comments Code Status (Patient has no pulse and is not breathing): CPR (Attempt to Resuscitate) Medical Interventions (Patie nt has pulse or is breathing): Full Support Level Of Support Discussed With: Patient * CPR (Attempt to Resuscitate) Date Activated Date Inactivated Comments 05/19/2022 10:07 PM 05/21/2022 12:38 PM Question Answer Comments Code Status (Patient has no pulse and is not breathing): CPR (Attempt to Resuscitate) Medical Interventions (Patie nt has pulse or is breathing): Full Support Level Of Support Discussed With: Patient * CPR (Attempt to Resuscitate) Date Activated Date Inactivated Comments 02/15/2022 3:47 PM 02/15/2022 7:12 PM Question Answer Comments Code Status (Patient has no pulse and is not breathing): CPR (Attempt to Resuscitate) Medical Interventions (Patie nt has pulse or is breathing): Full Support Level Of Support Discussed With: Patient * CPR (Attempt to Resuscitate) Date Activated Date Inactivated Comments 05/03/2019 3:54 AM 05/06/2019 2:25 PM Question Answer Comments Code Status (Patient has no pulse and is not breathing): CPR (Attempt to Resuscitate) Medical Interventions (Patie nt has pulse or is breathing): Full Care Teams Airplane Flight Attendant Supervisor Relationship Specialty Start Date End Date Tonya Wade APRN [address] [facility] [address] [facility] [address] [place] [address] PCP - General Family Medicine 03/12/23
--- OUTSIDE RECORDS SUMMARY | 2025-05-31 12:54 | XMS_ITS | Clinical Summary ---
Author Organization [facility] Address [address] [place], [place] [id number] Phone [email or web address] Care Team Providers Care Logistics Supervisor Name Role Phone Unavailable Primary Care Provider Unavailabl e Allergies Active Allergy Reactions Criticality Noted Date Comments Animal Dander 05/03/2021 Bee Venom 05/03/2021 Blueberry Flavoring Agent (Non-Screening) 05/03/2021 Cod Liver Oil 05/03/2021 Gramineae Pollens 05/03/2021 Molds & Smuts 05/03/2021 Seasonal Allergies 05/03/2021 Medications acyclovir (ZOVIRAX) 800 MG tablet Take 800 mg by mouth 2 (two) times a day. 04/27/2021 Active ibuprofen (MOTRIN) 600 MG tablet Take 600 mg by mouth. 05/06/2019 Active acetaminophen (TYLENOL) 325 MG tablet Take by mouth every 6 (six) hours if needed. Active Advair Diskus 100-50 MCG/DOSE diskus inhaler INHALE 1 DOSE BY MOUTH TWICE DAILY 07/29/2021 Active Active Problems No known active problems Resolved Problems Problem Noted Date Diagnosed Date Resolved Date Severe pre-eclampsia in third trimester 05/03/2019 09/26/2021 (spontaneous vaginal delivery) 05/03/2019 09/26/2021 Social History Tobacco Use Types Packs/Day Years Used Date Smoking Tobacco: Former Cigarettes Q uit: 03/2021 Smokeless Tobacco: Never Intimate Partner Violence Answer Date R ecorded Insults You Not on file 02/24/2021 Threatens You Not on file 02/24/2021 Screams at You Not on file 02/24/2021 Physically Hurt Not on file 02/24/2021 Intimate Partner Violence Score Not on file 02/24/2021 Stress Answer Date Recorded Stress in your Life Not on file 09/15/2024 Dealing with Stress 3 09/15/2024 Comments Unknown Sex and Gender Information Value Date Recorded Sex Assigned at Not on file 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[employer] Gender Identity Not on file Sexual Orientation Not on file Last Filed Vital Signs Vital Sign Reading Time Taken Comments Blood Pressure 118/76 10/03/2020 9:49 AM EST Pulse 78 10/29/2021 5:06 PM EST Temperature 36.7 C (98 F) 10/29/2021 5:06 PM EST Respiratory Rate - - Oxygen Saturation 99% 10/29/2021 5:06 PM EST Inhaled Oxygen Concentration - - Weight 98.7 kg (217 lb 11.2 oz) 10/03/2020 9:49 AM EST Height 168.9 cm (5' 6.5 ) 10/03/2020 9:49 AM EST Body Mass Index 34.61 10/03/2020 9:49 AM EST Plan of Treatment Health Maintenance Due Date Last Done Comments Dental Cleaning/Exam 1998 HIV Screening 1998 Hepatitis C Screening 1998 Cervical Cancer Screening 2014 Hep B Infection Screening - Triple Screen 2016 Hepatitis B Immunization (1 of 3 - 19+ 3-dose series) 2017 Tetanus Diphtheria and Pertu ssis Immunization (1 - Tdap) 2017 Annual Preventive Exam 10/03/2021 10/03/2020 Covid-19 Immunization (1 - 2 25 season) 2024 Influenza Immunization (#1) 2025 HIB Immunization Aged Out No longer e ligible based on patient's age to complete this topic HPV Immunization Aged Out No longer e ligible based on patient's age to complete this topic Hepatitis A Immunization Aged Out No longer eligible based on patient's age to complete this topic Pneumococcal: Ped (0 to 5 Yr s) and At-Risk Member (6 to 64 Yrs) Aged Out No longer e ligible based on patient's age to complete this topic Polio Immunization Aged Out No longer eligible based on patient's age to complete this topic Varicella Immunization Aged Out No lo nger eligible based on patient's age to complete this topic Insurance OPT OUT NO COPAY NB
--- OUTSIDE RECORDS SUMMARY | 2025-05-31 12:54 | XMS_ITS | Patient Health Record ---
Author Organization [facility] Address [address] [place] [address] Care Team Providers Care Manager Validation Name Role Phone Nusrat Charles Unavailable [phone] Allergies No Known Allergies Reason For Referral No Information Medications Medication SIG (Take, Route, Frequency, Duration) Notes Start Date End Date Status Valtrex 500 MG Tablet 1 tablet Orally BID; Duration: 3 days Take 1 tab BID for 3 days then decrease to one tab daily until delivery 12/10/2021 Active Social History Tobacco Use: Social History Observation Description Date Details (start date - stop date) Never Smoker NA - NA Social History Drugs/Alcohol: Social Info Question Answer Notes Drugs Have you used drugs other than those for medical reasons in the past 12 months? No Alcohol Screen Did you have a drink containing alcohol in the past year? No Points 0 Interpretation Negative Tobacco Use: Social Info Question Answer Notes Tobacco Use/Smoking Are you a nonsmoker Tobacco use other than smoking: Are you an other tobac co user? 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) Active confirmed Problem Missed period (16551157) Missed period (N92.6) Active confirmed Plan Of Treatment No Information Insurance Providers Payer Name Payer Address Payer Phone Subscriber Number Group Number Insured Name Patient Relationship to Insured Coverage Start Date Coverage End Date Aetna [facility] [address] [place] [phone] [id number] Esther Campuzano Self - patient is the insured 2 Medical (General) History Medical History History ICD Code acid reflux asthma depression UTI yeast infections preeclampsia HSV 2 (genital) Surgical History Surgery Date(Month/Year) wisdom teeth Hospitalization History Reason Date(Month/Year)
== END 2025-05-31 23:59 | disposition home or self-care (01) ==
LOC: DIETICIAN 12:52
PROVIDERS: PCP Nurse Practitioner Family; Visit Provider Nurse Practitioner Family
DX: K21.9 Gastro-esophageal reflux disease without esophagitis (principal); K59.00 Constipation, unspecified; E66.9 Obesity, unspecified
CPT/HCPCS: 97802

== ENCOUNTER 2025-10-02 11:25 | Emergency (ER) | payer OTHER, SELFPAY ==
--- OUTSIDE RECORDS SUMMARY | 2025-10-02 11:34 | XMS_ITS | Clinical Summary ---
Author Organization [facility] Address [address] [place] [address] Care Team Providers Care Cyber Security Instructor Name Role Phone WadeCassiaTonya CLEMENT Primary Care Provider [phone] Allergies Active Allergy Reactions Criticality Noted Date [...] of Binge Drinking Not on file 04/11 Roseau Depression Scale Answer Date Recorded Roseau Depression Scale Total 6 06/06/2022 The thought of harming myself has occurred to me . Unrecognized value 06/06/2022 Abuse Screen Answer Date Recorded [...] d Breast Exam 1998 ANNUAL PHYSICAL 05/29/2022 INFLUENZA VACCINE 06/10/2025 11/12/2018 TDAP/TD VACCINES (2 - Td or [...] ve Non-Reacti ve 10/30/2021 12:49 AM EST [facility] Blood Venipuncture / Unknown 10/29/2021 2:02 PM EST 10/29/2021 2:03 PM EST Narrative [facility] - 10/30/2021 12:49 AM EST Results may be falsely decreased if patient taking Biotin. Beatriz Parker [facility] BLOOD ORDERABLES Fi nal Result [facility]
[address] [place] [address], from Last 3 Months or Most Recently Relevant to Health Maintenance Insurance [facility] Advance Directives * CPR (Attempt to Resuscitate) [...] breathing): CPR (Attempt to Resuscitate) Medical Interventions (Luceroe nt has pulse or is breathing): Full Care Teams Cyber Security Instructor Relationship Specialty Start Date End Date Tonya Wade APRN [address] [facility] [address] [facility] [address] [place] [id number] PCP - General Family Medicine 03/12/23
--- OUTSIDE RECORDS SUMMARY | 2025-10-02 11:35 | XMS_ITS | Patient Health Record ---
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) Active confirmed Problem Missed period (36042199) Missed period (N92.6) Active confirmed Plan Of Treatment No Information Insurance Providers Payer Name Payer Address Payer Phone Subscriber Number Group Number Insured Name Patient Relationship to Insured Coverage Start Date Coverage End Date Aetna [facility] [address] [place] [phone] [id number] Esther Campuzano Self - patient is the insured 2 Medical (General) History Medical History History ICD Code acid reflux asthma depression UTI yeast infections preeclampsia HSV 2 (genital) Surgical History Surgery Date(Month/Year) wisdom teeth Hospitalization History Reason Date(Month/Year)
--- OUTSIDE RECORDS SUMMARY | 2025-10-02 11:35 | XMS_ITS | Clinical Summary ---
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 Gender Identity Not on file Sexual Orientation [...] Health Maintenance Due Date Last Done Comments Cervical Cancer Screening Combo 1998 Dental Cleaning/Exam 1998 HIV Screening 1998 HPV only / HPV + Pap 1998 Hepatitis C Screening 1998 Pap only testing 1998 HPV Immunization (1 - 2-dose series) 2009 Hep B Infection Screening - Triple Screen 2016 Hepatitis B Immunization (1 of 3 - 19+ 3-dose series) 2017 Tetanus Diphtheria and Pertu ssis Immunization (1 - Tdap) 2017 Annual Preventive Exam 10/03/2021 10/03/2020 Covid-19 Immunization (1 - 2 025-26 season) 2025 Influenza Immunization (#1) 2025 HIB Immunization Aged Out No longer e ligible based on patient's age to complete this topic Hepatitis A Immunization Aged Out No longer eligible based on patient's age to complete this topic Pneumococcal Immunization Aged Out No longer eligible based on patient's age to complete this topic Polio Immunization Aged Out No longer eligible based on patient's age to complete this topic Varicella Immunization Aged Out No lo nger eligible based on patient's age to complete this topic Insurance OPT OUT NO COPAY NB
[2025-10-02 11:40] VITALS: BP 131/71; PULSE 89; RESP 16; TEMP 36.9; O2SAT 97; BMI 37.5
--- NOTE | 2025-10-02 11:52 | ED_ITS ---
<Statement entered by Dash Lakhani MD - 10/02/25 12:30> Dash Lakhani MD: I was consulted by the LOBITO, and we discussed the complexity of the problems being addressed. I approved the treatment and management plan for this patient's care in the emergency department, thus performing a substantive portion of the medical decision making. Discharge Plan Disposition Patient Disposition: Home, Self-Care Condition: Good Prescriptions Prescriptions: No Action hydrocortisone 2.5 % ointment 1 applic topical BID 14 Days Qty: 28.35 0RF pantoprazole [Protonix] 40 mg tablet,delayed release (DR/EC) 40 mg PO DAILY Qty: 30 2RF multivitamin [One Daily Multivitamin] Tablet 1 tab PO DAILY Qty: 30 11RF Mirena 21 mcg/24 hours (8 yrs) 52 mg intrauterine device 1 device intrauterine clobetasol 0.05 % ointment 1 applic topical HS 28 Days Qty: 30 0RF albuterol sulfate 90 mcg/actuation HFA aerosol inhaler 2 puff inhalation Q4-6H PRN (Reason: shortness of breath or wheezing) Qty: 6.7 1RF Referrals Follow up/Referrals: Valencia Gleason APRN [Primary Care Provider, Medical] - See instructions Activity Restrictions/Add. Instructions Additional Instructions/Restrictions: You were evaluated on an emergency basis. It is very important that you follow- up with your primary care provider and any specialist who we discussed within the next 2 days in order to better assess your health more comprehensively. For example, incidental findings on imaging or laboratory results that were performed today may be discovered, which do not require immediate medical care, but may impact your health in the future. If your symptoms worsen or persist, please return to the emergency department immediately for reassessment. Take all medications as prescribed. In queue for allowing me to participate in your health care, and I hope you feel better soon. Clinical Impressions Clinical Impression: Upper respiratory infection, viral Instructions Patient Instructions: DI for Viral Upper Respiratory Infection in Adults Print Language Print Language: Iraqi Discharge ED Provider: Dash Lakhani General Adult HPI General Chief complaint: Upper Respiratory Infection Stated complaint: sore throat, cough Time Seen by Provider: 10/02/25 11:32 Mode of Arrival: Ambulatory Source of Information: Patient Description of Symptoms (Recalled from ER Triage Doc. by RN): PT C/O HOARSENESS, SORE THROAT AND NASAL CONGESTION ONGOING SINCE YESTERDAY. History of Present Illness HPI narrative: 25-year-old female presents the emergency department with her 3 children. Patient reports all 4 of them have had sore throat, cough, congestion since yesterday. She denies fevers. She has not take any medication for symptom relief prior to arrival. Related Data Home Medications ?Medication ?Instructions ?Recorded ?Confirmed levonorgestrel (Mirena) 1 device intrauterine 05/18/25 Previous Rx's ?Medication ?Instructions ?Recorded clobetasol 0.05 % topical ointment 1 applic topical HS 4 weeks #30 02/24/25 grams albuterol sulfate 90 mcg/actuation 2 puff inhalation Q 4-6H PRN 04/08/25 aerosol inhaler shortness of breath or wheez ing #6.7 grams hydrocortisone 2.5 % topical 1 applic topical BID 2 we eks 04/22/25 ointment #28.35 grams multivitamin (One Daily 1 tab PO DAILY #30 tabs 05/10 03/04 Multivitamin tablet) pantoprazole 40 mg tablet,delayed 40 mg PO DAILY #30 t abs 05/23/25 release (Protonix) Allergies Allergy/AdvReac Type Severity Reaction Status Date / Time blueberry Allergy Unknown Verified 10/02/25 11:45 allergy reaction cat dander Allergy Unknown Verified 10/02/25 11:45 allergy reaction dog dander Allergy Unknown Verified 10/02/25 11:45 allergy reaction house dust Allergy Unknown Verified 10/02/25 11:45 allergy reaction codfish Allergy Unknown Uncoded 10/02/25 11:45 allergy reaction PFSH PFSH Disclaimer: The information contained in this section may have been updated after the patient was seen, as this information can be updated by other users. Medical History Anxiety Asthma Asthma exacerbation Asthma with exacerbation Bronchitis Candidal intertrigo Crush injury to finger Cystitis Depression Diarrhea Diarrhea Encounter for routine gynecological examination Exposure to COVID-19 virus Fatigue Gastroenteritis Herpes genitalis History of chlamydia Hypertension Lesion of skin of breast atopic dermatitis Lichen sclerosus of vulva Marginal insertion of umbilical cord affecting management of mother Nausea Nausea vomiting and diarrhea Negative test Nipple tenderness Bilateral Non-compliance Nonpurulent mastitis associated with Pilonidal abscess Pneumonia Positive urine drug screen THC 11/26/22 Right upper quadrant abdominal pain Screening for cholesterol level Sinusitis Sprain of left foot Upper respiratory disease Upper respiratory infection URI (upper respiratory infection) UTI (urinary tract infection) UTI (urinary tract infection) Viral syndrome Viral upper respiratory infection Vulvar lesion Surgical History Ada teeth extracted Family History Other No significant family history Social History (Updated 05/18/25 @ 09:42 by Margot Arellano CMA) Smoking Status: Current every day smoker tobacco type: cigarettes packs per day: 1 second hand exposure: Yes alcohol intake: current alcohol intake frequency: holidays/special occasions only substance use type: denies use current occupational status: unemployed Travel in the last 8 weeks?: Inside the [facility] housing: house Have you lived/traveled outside US in past 30 days?: No Contact w/someone who lives/traveled outside US past 30 days?: No Exposure to someone with infectious disease in past 14 days?: No Do you have a fever (greater than 100.4 F or 38 C)?: No Have you tested positive for COVID-19?: No Exposed to someone with COVID-19 in past 14 days?: No Do you have a sore throat?: Yes Do you have a cough?: Yes Do you have any weakness?: No Do you have any diarrhea?: No Are you experiencing any unusual bleeding?: No Do you have any muscle aches/pain?: No Do you have any abdominal pain?: No Are you experiencing loss of taste or smell?: No Other Medical History Have you received the Flu Vaccine for this season: No Have you received the Pneumonia Vaccine: No ROS Obtained: Yes other ENT Ears, Nose, Mouth, and Throat: Reports nasal congestion and Reports sore throat Respiratory Respiratory: Reports cough Physical Exam Narrative Physical exam: General: Awake, aware, in no acute distress HEENT: Normocephalic, no evidence of trauma CV: RRR, no murmurs, rubs, or gallops Pulm: CTA bilaterally with no rhonchi, rales, wheezes ABD: Nontender, no swelling, guarding, or rebound tenderness Psych, appropriate mood and affect General General appearance: alert Respiratory Respiratory exam: Present normal lung sounds bilaterally Cardiovascular Cardiovascular exam: Present regular rate Neurological Exam Neurological exam: Present alert Medical Decision Making Medical Records Screening: Per USPSTF and CDC recommendations, given the prevalence of disease in our region, it is our hospital?s policy to screen for HIV and viral Hepatitis for all patients aged 18 and over and those with ongoing risk factors. [place] Inquiry Pt receiving controlled substance: No Vital Signs: 10/02/25 11:40 Temperature 98.5 F Temperature Source Oral Pulse Rate [Left] 89 Respiratory Rate 16 Blood Pressure [Right Arm] 131/71 Blood Pressure Mean [Right Arm] 91 Blood Pressure Source [Right Arm] Automatic Cuff Blood Pressure Position [Right Arm] Sitting 02 Sat by Pulse Oximetry 97 Oxygen Delivery Method Room Air Lab Data Lab Results 10/02/25 11:39: Group A Strep Rapid Negative Orders (Tests/Meds): ORDERS Category Date Time Status Rapid Strep Scrn Group A [Strep Scrn Group A (Rapid)] Lab 10/02/25 11:39 Completed Stat Strep Screen Confirmation Stat Micro 10/02/25 11:39 Received Medical Decision Narrative: Initial impression of presenting illness: 25-year-old female presents to the emergency department with her 3 children. She reports they have all had cough, congestion, sore throat since yesterday she denies fevers. She has not take any medication for symptom relief prior to arrival. Differential diagnosis includes but is not limited to: Allergic rhinitis, viral illness, strep throat Patient arrives hemodynamically stable, afebrile, without respiratory distress with vital signs interpreted by myself. Initial physical exam unremarkable Initial diagnostic plan: Rapid strep Results from initial plan were reviewed and interpreted by myself, pertinent positives include: Rapid strep was negative. Throat culture has been sent to confirm these results. Patient was made aware of the results and the findings, upon reevaluation patient has remained stable throughout stay, symptoms remained stable. Upon reevaluation patient is resting comfortably in her room with no signs of acute distress. Disposition: Reviewed findings today's workup with patient informed no acute abnormalities were noted. Advised her that a throat culture has been sent to confirm her negative rapid strep test. Advised her if the test were to come out positive they would be notified to start antibiotics. Encouraged her to continue with Tylenol and ibuprofen as needed for pain and fever control. She should also increase her fluids and rest for the next several days. Instructed her to return to the emergency department with any worsening symptoms otherwise that she may follow-up with her primary care provider as needed. Patient was agreeable to plan of care. Patient made aware of findings and had a detailed discussion with symptomatic care and return precautions, patient voiced understanding. Critical Care Critical Care Time Critical Care Time: No
[2025-10-02 12:09] LABS: Strep Scrn Group A (Rapid) Negative (Negative)
[2025-10-02 12:23] VITALS: BP 131/71; PULSE 89; RESP 16; TEMP 36.9; O2SAT 99
== END 2025-10-02 12:26 | disposition home or self-care (01) ==
PROVIDERS: Nurse Practitioner Family; Emergency Provider Emergency Medicine; PCP Nurse Practitioner Family
DX: R07.0 Pain in throat (principal); J06.9 Acute upper respiratory infection, unspecified; B34.9 Viral infection, unspecified
CPT/HCPCS: 87430; 99282; 99283